=== PATIENT | male | born 1935 | race Caucasian/White ===

== ENCOUNTER → 2016-11-10 | Outpatient (CLI) | payer MEDICARE, OTHER ==
[~2016-11-10] MED LIST: AMIO20TA PO; AMITRIPTYLINE PO; ASPI81TA21 PO; BISAC5TA PO; CEFT2VL IV; COQ1100C PO; COZAR PO; DULC10SU9 PR; FOLI800T PO; GABAPOW41 PO; HYDROCODONE PO; LIDO1DIS2 TD; LOPR100T PO; LORTTAB2 PO; LORTTAB5 PO; LUTE20CA PO; MAGN500C PO; META800T82 PO; MOM30SS PO; MOME50SP; OSTEOBIFLEX PO; POTASSIUM PO; PREDPOW10 PO; PREV15CA10 PO; SALI0.9I2 IV; SENO8.6T9 PO; SYNT50TA PO; TOPR25TA PO; TYLE325T5 PO; UROXATROL PO; VOLTAREN PO; [UNRECOGNIZED DRUG - CODE] IV; [UNRECOGNIZED DRUG - CODE] MT
[2016-11-10 13:43] LABS: ALBUMIN 3.8 GM/DL (3.2-5.2); ALBUMIN/GLOBULIN RATIO 1.31 (1.00-1.93); BILIRUBIN,DIRECT 0.3 MG/DL (0.0-0.2); BILIRUBIN,TOTAL 0.9 MG/DL (0.2-1.0); TOTAL PROTEIN 6.7 GM/DL (6.4-8.2)
== END | disposition home or self-care (01) ==
LOC: M WUC 08:59
PROVIDERS: ATTEND Physician Assistant
DX: E29.1 Testicular hypofunction (principal); Z12.5 Encounter for screening for malignant neoplasm of prostate; Z79.899 Other long term (current) drug therapy
CPT/HCPCS: 36415; 80076; 84403; 85014; G0103

== ENCOUNTER → 2017-04-17 | Outpatient (CLI) | payer MEDICARE, BC, OTHER | LOC: M WUC 08:51 | PROVIDERS: ATTEND Physician Assistant | DX: E29.1 Testicular hypofunction (principal); Z12.5 Encounter for screening for malignant neoplasm of prostate; Z79.899 Other long term (current) drug therapy ==

== ENCOUNTER → 2017-07-25 | Outpatient (CLI) | payer MEDICARE, BC, OTHER | LOC: M WUC 13:42 | PROVIDERS: ATTEND Urology | DX: N40.1 Benign prostatic hyperplasia with lower urinary tract symptoms (principal); E29.1 Testicular hypofunction ==

== ENCOUNTER 2017-12-19 09:29 | Outpatient (CLI) | payer MEDICARE, BC, OTHER | END 2017-12-23 | LOC: M RAD 09:29 | DX: I70.213 Atherosclerosis of native arteries of extremities with intermittent claudication, bilateral legs (principal); I87.393 Chronic venous hypertension (idiopathic) with other complications of bilateral lower extremity; I70.234 Atherosclerosis of native arteries of right leg with ulceration of heel and midfoot | CPT/HCPCS: 93923 ==

== ENCOUNTER → 2017-12-21 | Outpatient (CLI) | payer MEDICARE, BC, OTHER ==
[2017-12-21 17:06] LABS: HEMATOCRIT 31.9 % (42.0-52.0)
[2017-12-21 17:26] LABS: PROSTATIC SPECIFIC AG MONITOR 0.12 NG/ML (< 4.0)
[2017-12-21 17:30] LABS: TESTOSTERONE 122 NG/DL (241-827)
== END ==
LOC: M WUC 12:50
DX: E29.1 Testicular hypofunction (principal)
CPT/HCPCS: 84403

== ENCOUNTER → 2018-02-11 | Outpatient (CLI) | payer MEDICARE, BC, OTHER | LOC: M RAD 10:41 | DX: I70.213 Atherosclerosis of native arteries of extremities with intermittent claudication, bilateral legs (principal); I87.393 Chronic venous hypertension (idiopathic) with other complications of bilateral lower extremity; F17.211 Nicotine dependence, cigarettes, in remission | CPT/HCPCS: 93971 ==

== ENCOUNTER → 2018-05-13 | Outpatient (CLI) | payer MEDICARE, BC, OTHER ==
[2018-05-13 13:13] LABS: PROSTATIC SPECIFIC AG MONITOR 0.11 NG/ML (< 4.0)
[2018-05-13 13:19] LABS: TESTOSTERONE 432 NG/DL (241-827)
== END ==
LOC: M WUC 10:28
DX: E29.1 Testicular hypofunction (principal)
CPT/HCPCS: 84403

== ENCOUNTER → 2018-11-15 | Outpatient (CLI) | payer MEDICARE, BC, OTHER ==
[2018-11-15 16:59] LABS: ALBUMIN 3.9 GM/DL (3.2-5.2); BILIRUBIN,DIRECT 0.2 MG/DL (0.0-0.2); BILIRUBIN,TOTAL 0.8 MG/DL (0.2-1.0); PROSTATIC SPECIFIC AG MONITOR 0.08 NG/ML (< 4.00); TOTAL PROTEIN 6.9 GM/DL (6.4-8.2)
== END ==
LOC: M WUC 12:31
PROVIDERS: ATTEND Physician Assistant
DX: E29.1 Testicular hypofunction (principal)

== ENCOUNTER → 2019-05-12 | Outpatient (CLI) | payer MEDICARE, BC, OTHER ==
[~2019-05-12] MED LIST changes: +AMIO200T10 PO; -AMIO20TA PO; +CEFT1INJ65 IV; -CEFT2VL IV; +METO-1 PO; -TOPR25TA PO
[2019-05-12 14:51] LABS: ALBUMIN 3.8 GM/DL (3.2-5.2); BILIRUBIN,DIRECT 0.3 MG/DL (0.0-0.2); PROSTATIC SPECIFIC AG MONITOR 0.13 NG/ML (< 4.00)
== END ==
LOC: M WUC 10:07
PROVIDERS: ATTEND Physician Assistant
DX: E29.1 Testicular hypofunction (principal)

== ENCOUNTER → 2019-11-15 | Outpatient (CLI) | payer MEDICARE, BC, OTHER ==
--- NOTE | 2019-11-15 18:05 | REP ---
Clinical: Abdominal pain. Technique: Upright view of the chest with supine and upright views of the abdomen and pelvis. Findings: Upright view of the chest demonstrates chronic appearing changes. No free air below diaphragm to suspect pneumoperitoneum. Supine and upright views of the abdomen and pelvis demonstrate nonspecific bowel gas pattern without obstruction or perforation. No organomegaly. No foreign body or significant abnormal calcification. Skeletal structures demonstrate chronic dextroconvex scoliosis and degenerative changes. Impression: Nonspecific bowel gas pattern. Electronically Signed by Feliciano Hudson MD 11/15/2019 05:56 P
== END ==
LOC: M WUC 16:49
PROVIDERS: ATTEND Physician Assistant
DX: R10.84 Generalized abdominal pain (principal)

== ENCOUNTER → 2019-12-16 | Outpatient (CLI) | payer MEDICARE, BC, OTHER ==
[2019-12-16 12:54] LABS: ALBUMIN 3.7 GM/DL (3.2-5.2); BILIRUBIN,DIRECT 0.4 MG/DL (0.0-0.2); BILIRUBIN,TOTAL 1.1 MG/DL (0.2-1.0); PROSTATIC SPECIFIC AG MONITOR 0.09 NG/ML (< 4.00); TOTAL PROTEIN 6.8 GM/DL (6.4-8.2)
== END ==
LOC: M WUC 09:37
DX: E29.1 Testicular hypofunction (principal)

== ENCOUNTER → 2020-04-02 | Outpatient (REF) | payer MEDICARE, BC, OTHER | LOC: M LAB REF 16:49 | PROVIDERS: ATTEND Nurse Practitioner Family | DX: L72.3 Sebaceous cyst (principal) ==

== ENCOUNTER → 2020-04-20 | Outpatient (CLI) | payer MEDICARE, BC, OTHER ==
[2020-04-20 14:03] LABS: CREATININE FOR GFR 1.32 MG/DL (0.70-1.30); GLOMERULAR FILTRATION RATE 55.3 (>35)
== END ==
LOC: M WUC 09:24
PROVIDERS: ATTEND Urology
DX: N28.1 Cyst of kidney, acquired (principal)

== ENCOUNTER 2020-08-27 10:59 | Inpatient (IN) | payer MEDICARE, BC, OTHER ==
[~2020-08-27] VITALS: Ht 182.9 cm; Wt 107.5 kg
[2020-08-27 11:54] LABS: BASO # 0.1 10^3/uL (0.0-0.2); BASO % 0.3 % (0.0-1.0); HEMATOCRIT 29.8 % (42.0-52.0); HEMOGLOBIN 9.9 g/dl (13.5-17.5); LYMPH # 1.2 10^3/uL (1.5-5.0); LYMPH % 5.6 % (24.0-44.0); MEAN CORPUSCULAR HEMOGLOBIN 35.1 pg (27.0-33.0); MEAN CORPUSCULAR HGB CONC 33.2 g/dl (32.0-36.5); MEAN CORPUSCULAR VOLUME 105.7 fl (80.0-96.0); MONO # 3.1 10^3/uL (0.0-0.8); MONO % 14.3 % (0.0-5.0); NEUTROPHILS # 17.1 10^3/uL (1.5-8.5); NEUTROPHILS % 78.5 % (36.0-66.0); PLATELET COUNT, AUTOMATED 176 10^3/uL (150-450); RED BLOOD COUNT 2.82 10^6/uL (4.30-6.10); WHITE BLOOD COUNT 21.8 10^3/uL (4.0-10.0)
[2020-08-27] MEDS ORDERED: AMIT10TA PO (12:08)
[2020-08-27] MEDS ORDERED: K-TA10TA PO (12:08)
[2020-08-27] MEDS ORDERED: MAGN1CAP PO (12:08)
[2020-08-27] MEDS ORDERED: CO Q200C10 PO (12:08)
[2020-08-27] MEDS ORDERED: EQL50TAB2 PO (12:08)
[2020-08-27] MEDS ORDERED: METO1TAB87 PO (12:08)
[2020-08-27] MEDS ORDERED: PRED25TA PO (12:08)
[2020-08-27] MEDS ORDERED: CVS2500C PO (12:08)
[2020-08-27] MEDS ORDERED: VITATAB74 PO (12:08)
[2020-08-27] MEDS ORDERED: HYDR-3713 PO (12:08)
[2020-08-27] MEDS ORDERED: VITA100T59 PO (12:08)
[2020-08-27] MEDS ORDERED: RAPA8CAP4 PO (12:08)
[2020-08-27] MEDS ORDERED: PRESCAP PO (12:08)
[2020-08-27] MEDS ORDERED: GABA600T4 PO (12:08)
[2020-08-27] MEDS ORDERED: TEST1GEL10 TOP (12:08)
[2020-08-27] MEDS ORDERED: FERR325T3 PO (12:08)
[2020-08-27 12:29] LABS: ALBUMIN 3.4 GM/DL (3.2-5.2); BILIRUBIN,DIRECT 0.4 MG/DL (0.0-0.2); BILIRUBIN,TOTAL 1.5 MG/DL (0.2-1.0); CALCIUM LEVEL 8.6 MG/DL (8.8-10.2); CREATININE FOR GFR 1.24 MG/DL (0.70-1.30); GLOMERULAR FILTRATION RATE 59.3 (>35); POTASSIUM SERUM 4.1 MEQ/L (3.5-5.1)
[2020-08-27] MEDS ORDERED: NS 1,000 ML IV ONE (12:30)
[2020-08-27] MEDS ORDERED: ACETAMINOPHEN 325 MG TAB PO ONE ×2 (12:30→22:45)
[2020-08-27] MEDS ORDERED: ISOVUE-370 76% 100ML VIAL As Ordered ONE (12:37)
--- NOTE | 2020-08-27 13:13 | REP ---
INDICATION: fever;weakness. COMPARISON: Frontal view obtained 11/15/2019 TECHNIQUE: The technique utilized in obtaining the radiograph has magnified the cardiac silhouette and attenuated the interstitial markings. FINDINGS: There are basilar fibrotic changes status quo. No acute patchy parenchymal opacities or pleural effusions seen to have developed. The lung elder are hypoexpanded. The cardiac silhouette is magnified by technique. There is no evidence of overt cardiomegaly. There is no change in the osseous structures. IMPRESSION: Chronic changes as described above. Correlate clinically to rule out the possibility of acute disease superimposed upon chronic change. <Electronically signed by Chintan Maravilla > 08/27/20 [id number]
--- NOTE | 2020-08-27 13:27 | REP ---
INDICATION: right sided abdominal pain COMPARISON: 03/03/2013. TECHNIQUE: CT Scan of the abdomen and pelvis was performed with intravenous administration of 100 cc of Isovue 370, without oral contrast. FINDINGS: Lung bases: There are fibrotic changes. Liver: There is [id number] intrahepatic biliary dilatation. No liver mass is seen. Gallbladder: Gallbladder is moderately distended and contains dependent calculi up to about 9 mm in diameter. There is gallbladder wall thickening with surrounding diffuse edema. The common hepatic and common bile ducts are dilated up to 17 mm. Several calculi are seen in the common bile duct measuring up to 1 cm in diameter. Spleen: Normal. Adrenals: Normal. Pancreas: Unremarkable. Kidneys: Probable small cyst in the upper pole of the right kidney. There is moderate left renal atrophy. There is no hydronephrosis bilaterally. Small and large bowel: Diverticulosis is noted of the sigmoid and left colon without evidence of acute diverticulitis. Free fluid: None. Abdominal aorta: No aneurysm or dissection. There are scattered atherosclerotic calcifications with tortuosity and mild ectasia. Adenopathy: None. Appendix: Not inflamed. Osseous structures: Significant degenerative changes. Pelvis: No mass. Small bilateral inguinal hernias containing noninflamed fat. IMPRESSION: Moderately distended gallbladder with diffuse gallbladder wall thickening and surrounding edema. Gallstones in the gallbladder. There is also evidence of choledocholithiasis. There is significant biliary dilatation diffusely. Findings are consistent with common bile duct obstruction and cholecystitis. <Electronically signed by Alfred Wallis > 08/27/20 [id number]
[2020-08-27] MEDS ORDERED: PIPERACILLIN/TAZOBACTAM SOD 4.5 GM in D5W MINI-BAG PLUS 50 ML IV ONE (14:00)
[2020-08-27] MEDS ORDERED: D5W/0.45% SODIUM CHLORIDE 1,000 ML IV SCH (14:11)
[2020-08-27] MEDS ORDERED: GLUCOSE 4GM CHEW TABLET PO PRN (14:15)
[2020-08-27] MEDS ORDERED: DEXTROSE 50% 50 ML SYRINGE IV PRN (14:15)
[2020-08-27] MEDS ORDERED: GLUCAGON INJ 1MG VIAL SC PRN (14:15)
[2020-08-27] MEDS ORDERED: HM P99TA PO (14:30)
[2020-08-27] MEDS ORDERED: LEVO50TA45 PO (14:30)
[2020-08-27] MEDS ORDERED: MELA1TAB9 PO (14:30)
[2020-08-27] MEDS ORDERED: PANT500T PO (14:30)
[2020-08-27] MEDS ORDERED: CYAN100050 PO (14:30)
[2020-08-27] MEDS ORDERED: VITA100091 PO (14:30)
[2020-08-27] MEDS ORDERED: ACET650T61 PO (14:30)
[2020-08-27] MEDS ORDERED: ACID1TAB PO (14:30)
[2020-08-27] MEDS ORDERED: PREDOPD OS (14:30)
[2020-08-27] MEDS ORDERED: CO Q100C2 PO (14:30)
[2020-08-27] MEDS ORDERED: D31000TA2 PO (14:30)
[2020-08-27] MEDS ORDERED: LANS30CA PO (14:30)
[2020-08-27] MEDS ORDERED: FOLI800C PO (14:30)
[2020-08-27] MEDS ORDERED: RA T500C2 PO (14:30)
[2020-08-27] MEDS ORDERED: OCUVTAB4 PO (14:30)
[2020-08-27] MEDS ORDERED: CICL0.7733 TOP (14:30)
[2020-08-27 17:30] VITALS: BP 131/81
--- NOTE | 2020-08-27 17:31 | HPEPDOC ---
[facility] Medical History & Physical Date of Admission Aug 27, 2020 Date of Service: Aug 27, 2020 History and Physical CHIEF COMPLAINT: Right upper quadrant abdominal pain for 2 days HISTORY OF PRESENT ILLNESS: 85-year-old male presented to the emergency room with acute onset of right upper quadrant abdominal pain noted yesterday without nausea, vomiting, fever or chills. Patient describes the pain as very sharp, lasted for about 2 hours after eating. His oatmeal in the morning very excruciating without improvement after taking some antacids when he got up this morning, patient felt lightheaded and felt that "I was septic again." . He was in [place] yesterday and ate a cup of soup with ham, cabbage, and potato and a cream pie and infiltrate well rested today. "I was miserable into the evening." Patient has had no nausea or vomiting, abdominal pain radiated across the abdomen and epigastric area and the left upper quadrant, with one episode of diarrhea last night, none this morning. Non-mucousy, nonbloody, non-projectile, water without abdominal distention retching or bloating. He denies any chest pain, pressure, tightness, lightheadedness, dizziness, palpitations, near syncope, bilateral upper and lower extremity weakness, paresthesias, dysuria, urgency, frequency, flank pain, foul-smelling urine, bright red blood per rectum, melena, black tarry stools, hematemesis, hemoptysis, shortness of breath, PND or orthopnea, dyspnea and exertion, or Chills.This morning. His gave him 2 doses of Cefdinir, one last night and one this morning with no improvement. In the emergency room was found to have a fever 100.9. White count 21.8. CT abdomen and pelvis showed moderately distended gallbladder with diffuse gallbladder wall thickening and edema consistent with diffuse biliary dilatation consistent with common bile duct obstruction and cholecystitis, choledocholithiasis. Patient was given intravenous Zosyn and kept nothing by mouth and IV fluids and hypoglycemic protocol proposal lead writer, Dr. Reilly, was consulted for ERCP. Covid 19 negative. Patient denies taking any anticoagulants and has only taken his morning dose of aspirin 81 mg daily. PAST MEDICAL HISTORY: MRSA positive, Hypertension, hypercholesterolemia, asthma, pneumonia, obstructive sleep apnea on CPAP, gastroesophageal reflux disease, Coronary artery disease, prior catheterization and attempted ablation-patient was not sure why this was done, peripheral neuropathy, benign prostatic hypertrophy, urinary tract infection, anemia of chronic disease, hypothyroidism, anxiety PAST SURGICAL HISTORY: Spinal cord stimulator and removal, tonsillectomy, adenoidectomy, cataract repair, retinal detachment on the left. Back surgery 2 HOME MEDICATIONS: SEE BELOW. ALLERGIES: SEE BELOW SOCIAL HISTORY: , lives with . Denies any prior history of alcohol, tobacco use, recreational drug use. 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 No jaundice or icterus. No respiratory distress. No cyanosis or pallor HEENT: Normocephalic, atraumatic CARDIOVASCULAR: S1, S2, sinus rhythm, no murmurs, rubs or gallops. Nondisplaced point of maximal impulse no carotid bruits LUNGS: Clear to auscultation. Wheezing, rales or rhonchi. Air entry is equal bilaterally. No kyphoscoliosis ABDOMEN: Obese, hypoactive bowel sounds. Tender in the right upper quadrant and epigastric region without rebound, guarding no fluid wave. EXTREMITIES: No cyanosis, clubbing, or any pitting edema LABORATORY DATA: See below. IMAGING: CT ABDOMEN AND PELVIS 08/27/2020: Moderately distended gallbladder with diffuse gallbladder wall thickening and surrounding edema. Gallstones in the gallbladder. There is also evidence of choledocholithiasis. There is significant biliary dilatation diffusely. Findings are consistent with common bile duct obstruction and cholecystitis. <Electronically signed by Alfred Wallis > 08/27/20 1324 CHEST X-RAY 08/27/2020:: Chronic changes as described above. Correlate clinically to rule out the possibility of acute disease superimposed upon chronic change. <Electronically signed by Chintan Maravilla > 08/27/20 1304 MICROBIOLOGY: Please see below. ASSESSMENT: 85-year-old male presented to the emergency room with acute onset of right upper quadrant abdominal pain noted yesterday without nausea, vomiting, fever or chills. Patient describes the pain as very sharp, lasted for about 2 hours after eating. His oatmeal in the morning very excruciating without improvement after taking some antacids when he got up this morning, patient felt lightheaded and felt that "I was septic again." . He was in [place] yesterday and ate a cup of soup with ham, cabbage, and potato and a cream pie and infiltrate well rested today. "I was miserable into the evening." Patient has had no nausea or vomiting, abdominal pain radiated across the abdomen and epigastric area and the left upper quadrant, with one episode of diarrhea last night, none this morning. Non-mucousy, nonbloody, non-projectile, water without abdominal distention retching or bloating. He denies any chest pain, pressure, tightness, lightheadedness, dizziness, palpitations, near syncope, bilateral upper and lower extremity weakness, paresthesias, dysuria, urgency, frequency, flank pain, foul-smelling urine, bright red blood per rectum, melena, black tarry stools, hematemesis, hemoptysis, shortness of breath, PND or orthopnea, dyspnea and exertion, or Chills.This morning. His gave him 2 doses of Cefdinir, one last night and one this morning with no improvement. In the emergency room was found to have a fever 100.9. White count 21.8. CT abdomen and pelvis showed moderately distended gallbladder with diffuse gallbladder wall thickening and edema consistent with diffuse biliary dilatation consistent with common bile duct obstruction and cholecystitis, choledocholithiasis. Patient was given intravenous Zosyn and kept nothing by mouth and IV fluids and hypoglycemic protocol proposal lead writer, Dr. Reilly, was consulted for ERCP. patient will be admitted as an inpatient for 2 minutes for the following acute issues: Acute cholangitis./Choledocholithiasis./Common bile duct obstruction/Acute cholecystitis. -Nothing by mouth, IV fluids, hypoglycemic protocol every 6 hourly fingersticks while nothing by mouth ERCP by GI. General surgical consult for laparoscopic c holecystectomy When necessary pain medications intravenously. Serial Liver function tests. Covid negative. Check PT/INR Coronary artery disease, prior catheterization and attempted ablation-patient w as not sure why this was done, -Denies any acute cardiac ischemic symptoms, chest pain, pressure, tightness, lightheadedness, dizziness or shortness of breath. EKG preop obstructive sleep apnea on CPAP, -JING protocol. Resume home on CPAP settings h/o MRSA positive -Recheck MRSA screen. Contact precautions. If positive Hypertension, controlled -Nothing by mouth, IV fluids hypercholesterolemia, -Check lipid panel in the morning asthma, -When necessary nebulizer gastroesophageal reflux disease, -IV PPI peripheral neuropathy, chronic benign prostatic hypertrophy, -Resume home meds once we started him oral diet anemia of chronic disease, -Check iron studies, reticulocyte count, peripheral blood smear, stool for blood. hypothyroidism, -Check TSH. Resume Synthroid once patient resumes an oral diet anxiety -Chronic CODE STATUS full code. Healthcare proxy Diet nothing by mouth DVT prophylaxis compression stockings Vital Signs Vital Signs Date Time Temp Pulse Resp B/P (MAP) Pulse Ox O2 Delivery O2 Flow Rate FiO2 08/27/20 16:57 61 18 97 Room Air 08/27/20 12:09 08/27/20 11:00 100.9 Laboratory Data Labs 24H Laboratory Tests 2 08/27/20 11:42: Immature Granulocyte % (Auto) 1.3, Neutrophils (%) (Auto) 78.5H, Lymphocytes (%) (Auto) 5.6L, Monocytes (%) (Auto) 14.3H, Eosinophils (%) (Auto) 0.0, Basophils (%) (Auto) 0.3, Neutrophils # (Auto) 17.1H, Lymphocytes # (Auto) 1.2L, Monocytes # (Auto) 3.1H, Eosinophils # (Auto) 0.0, Basophils # (Auto) 0.1, Nucleated Red Blood Cells % (auto) 0.2H, Anion Gap 5L, Glomerular Filtration Rate 59.3, Lactic Acid Level 1.1, Calcium Level 8.6L, Total Bilirubin 1.5H, Direct Bilirubin 0.4H, Aspartate Amino Transf (AST/SGOT) 35, Alanine Aminotransferase (ALT/SGPT) 54, Alkaline Phosphatase 58, Total Protein 7.0, Albumin 3.4, Albumin/Globulin Ratio 0.9, Lipase 101 08/27/20 14:05: Coronavirus (COVID-19)(PCR) NEGATIVE CBC/BMP Laboratory Tests 08/27/20 11:42 Microbiology Microbiology 08/27/20 Blood Culture, Received Pending 08/27/20 Blood Culture, Received Pending Home Medications Scheduled Amitriptyline HCl (Amitriptyline HCl) 10 Mg Tablet, 10 MG PO QHS Ascorbic Acid (Vitamin C) 1,000 Mg Tablet, 1,000 MG PO DAILY Cholecalciferol (Vitamin D3) (Vitamin D3) 1,000 Unit Tablet, 5,000 UNITS PO DAILY Ciclopirox (Ciclopirox) 30 Gm Gel..gram., 1 DOSE TOP BID APPLY TO FEET Cyanocobalamin (Vitamin B-12) (Vitamin B-12) 1,000 Mcg Tablet, 1,000 MCG PO QHS Folic Acid (Folic Acid) 0.8 Mg Capsule, 800 MCG PO DAILY Gabapentin (Gabapentin) 600 Mg Tablet, 1,200 MG PO BID Lactobacillus Acidophilus (Acidophilus) 1 Each Tablet, 1 TAB PO DAILY Lansoprazole (Lansoprazole) 30 Mg Capsule.dr, 30 MG PO DAILY Levothyroxine Sodium (Levoxyl) 50 Mcg Tablet, 50 MCG PO DAILY Magnesium Oxide (Magnesium) 500 Mg Capsule, 500 MG PO QHS Metoprolol Tartrate (Metoprolol Tartrate) 25 Mg Tablet, 50 MG PO QPM Pantothenic Acid (Vit B5) (Pantothenic Acid) 500 Mg Tablet, 500 MG PO BID Potassium Gluconate (Potassium) 99 Mg Tablet, 595 MG PO QHS Prednisolone Acetate (Prednisolone Acetate 1% Opth Susp) 5 Ml Drops.susp, 1 DROP OS QHS Prednisone (Prednisone) 2.5 Mg Tablet, 5 MG PO DAILY Silodosin (Rapaflo) 8 Mg Capsule, 8 MG PO QHS Testosterone (Testosterone) 60 Gm Gel.government clerk, 4 PUMP TOP DAILY APPLY TO BUTTOCKS Turmeric Root Extract (Turmeric) 500 Mg Capsule, 1,000 MG PO BID Ubidecarenone (Co Q-10) 100 Mg Capsule, 100 MG PO DAILY Vit A/Vit C/Vit E/Zinc/Copper (Preservision Areds Tablet) 1 Each Tablet, 1 TAB PO DAILY Vitamin B Complex (Vitamin B Complex) 1 Each Tablet, 1 TAB PO BID Scheduled PRN Acetaminophen (Tylenol Arthritis) 650 Mg Tablet.er, 1,300 MG PO BID PRN for PAIN Hydrocodone/Acetaminophen (Hydrocodone-Acetamin 5-325 mg) 1 Each Tablet, 1 TAB PO TID PRN for PAIN Melatonin (Melatonin) 5 Mg Tablet, 5 MG PO QHS PRN for SLEEP Allergies Coded Allergies: No Known Allergies (Unverified , 11/20/20) A-FIB/CHADSVASC A-FIB History Current/History of A-Fib/PAF?: No Current PO Anticoag Therapy: No Age/Risk Factor Scoring CHADSVASC: CHADSVASC Response (Comments) Value Age Risk Factor Age >/= 75 years old 2 Gender Risk Factor Male 0 Hx of CHF No 0 Hx of HTN Yes 1 Hx of Stroke/TIA/or VTE No 0 Hx of Diabetes No 0 Hx of Vascular Disease No 0 Total 3 Treatment Treatment ordered: NONE LUCIO OAKLEY MD Aug 27, 2020 17:31
[2020-08-27 17:47] LABS: INR 1.12; PROTHROMBIN TIME 14.7 SECONDS (12.5-14.3)
[2020-08-27 17:48] LABS: PARTIAL THROMBOPLASTIN TIME 37.3 SECONDS (24.2-38.5)
--- NOTE | 2020-08-27 18:15 | CR.PDOC ---
General Date of Consultation: Aug 27, 2020 Referring Provider: LUCIO OAKLEY MD Attending Physician: MARTIN PERRY MD Consultation REASON FOR CONSULTATION/CHIEF COMPLAINT: . HISTORY OF PRESENT ILLNESS: . ALLERGIES: Please see below. HOME MEDICATIONS: Please see below. PAST MEDICAL HISTORY: 1. . 2. . PAST SURGICAL HISTORY: 1. 2. FAMILY HISTORY: Father: Mother: Siblings: Children: Hereditary Diseases: Unexpected deaths due to medical reasons: SOCIAL HISTORY: Marital status and/or living arrangements: Children: Employment: Tobacco use: ETOH: Illicit drug use: IV drug use: Other relevant social factors: REVIEW OF SYSTEMS: CONSTITUTIONAL: . HEENT: . CARDIOVASCULAR: . RESPIRATORY: . GENITOURINARY: . MUSCULOSKELETAL: . GASTROINTESTINAL: . SKIN: . NEUROLOGICAL: . PSYCHIATRIC: . ENDOCRINE: . HEMATOLOGIC/LYMPHATIC: . ALLERGIC/IMMUNOLOGIC: . PHYSICAL EXAMINATION: VITAL SIGNS: Please see below. GENERAL APPEARANCE: . HEENT: . RESPIRATORY: . CARDIOVASCULAR: . ABDOMEN: . EXTREMITIES: . NEUROLOGICAL: . PSYCHIATRIC: . LABORATORY DATA: Please see below. ASSESSMENT/PLAN: 1. Abdominal pain, upper abdomen and predominantly right upper quadrant with nausea and signes of sepsis and Imaging showing distended gall bladder and Dilated CBD, cholecystitis and CBD stone -- DDx-- CHolecystitis with biliary obstruction vs suspected ascending cholangitis. Recommendations: -- NPO -- IV broad spectrum antibiotics. -- If Vital Signs/I&O Vital Signs Date Time Temp Pulse Resp B/P (MAP) Pulse Ox O2 Delivery O2 Flow Rate FiO2 08/27/20 16:57 61 18 97 Room Air 08/27/20 12:09 08/27/20 11:00 100.9 Laboratory Data Labs 24H Laboratory Tests 2 08/27/20 11:42: Immature Granulocyte % (Auto) 1.3, Neutrophils (%) (Auto) 78.5H, Lymphocytes (%) (Auto) 5.6L, Monocytes (%) (Auto) 14.3H, Eosinophils (%) (Auto) 0.0, Basophils (%) (Auto) 0.3, Neutrophils # (Auto) 17.1H, Lymphocytes # (Auto) 1.2L, Monocytes # (Auto) 3.1H, Eosinophils # (Auto) 0.0, Basophils # (Auto) 0.1, Reticulocyte # (auto) 45.7, Nucleated Red Blood Cells % (auto) 0.2H, Percent Reticulocyte Count 1.6H, Reticulocyte Hemoglobin Equivalent 33.1, Prothrombin Time 14.7H, Prothromb Time International Ratio 1.12, Activated Partial Thromboplast Time 37.3, Anion Gap 5L, Glomerular Filtration Rate 59.3, Lactic Acid Level 1.1, Calcium Level 8.6L, Iron Level 23L, Total Iron Binding Capacity 230L, Transferrin % Saturation 10.0L, Ferritin 487H, Total Bilirubin 1.5H, Direct Bilirubin 0.4H, Aspartate Amino Transf (AST/SGOT) 35, Alanine Aminotransferase (ALT/SGPT) 54, Alkaline Ph osphatase 58, Total Protein 7.0, Albumin 3.4, Albumin/Globulin Ratio 0.9, Lipase 101 08/27/20 14:05: Coronavirus (COVID-19)(PCR) NEGATIVE CBC/BMP Laboratory Tests 08/27/20 11:42 Microbiology Microbiology 08/27/20 Blood Culture, Received Pending 08/27/20 Blood Culture, Received Pending Allergies Coded Allergies: No Known Allergies (Unverified , 08/27/20) Home Medications Scheduled Amitriptyline HCl (Amitriptyline HCl) 10 Mg Tablet, 10 MG PO QHS, (Reported) Ascorbic Acid (Vitamin C) 1,000 Mg Tablet, 1,000 MG PO DAILY, (Reported) Cholecalciferol (Vitamin D3) (Vitamin D3) 1,000 Unit Tablet, 5,000 UNITS PO DAILY, (Reported) Ciclopirox (Ciclopirox) 30 Gm Gel..gram., 1 DOSE TOP BID, (Reported) APPLY TO FEET Cyanocobalamin (Vitamin B-12) (Vitamin B-12) 1,000 Mcg Tablet, 1,000 MCG PO QHS, (Reported) Folic Acid (Folic Acid) 0.8 Mg Capsule, 800 MCG PO DAILY, (Reported) Gabapentin (Gabapentin) 600 Mg Tablet, 1,200 MG PO BID, (Reported) Lactobacillus Acidophilus (Acidophilus) 1 Each Tablet, 1 TAB PO DAILY, (Reported) Lansoprazole (Lansoprazole) 30 Mg Capsule.dr, 30 MG PO DAILY, (Reported) Levothyroxine Sodium (Levoxyl) 50 Mcg Tablet, 50 MCG PO DAILY, (Reported) Magnesium Oxide (Magnesium) 500 Mg Capsule, 500 MG PO QHS, (Reported) Metoprolol Tartrate (Metoprolol Tartrate) 25 Mg Tablet, 50 MG PO QPM, (Reported) Pantothenic Acid (Vit B5) (Pantothenic Acid) 500 Mg Tablet, 500 MG PO BID, (Reported) Potassium Gluconate (Potassium) 99 Mg Tablet, 595 MG PO QHS, (Reported) Prednisolone Acetate (Prednisolone Acetate 1% Opth Susp) 5 Ml Drops.susp, 1 DROP OS QHS, (Reported) Prednisone (Prednisone) 2.5 Mg Tablet, 5 MG PO DAILY, (Reported) Silodosin (Rapaflo) 8 Mg Capsule, 8 MG PO QHS, (Reported) Testosterone (Testosterone) 60 Gm Gel..home health lpn, 4 PUMP TOP DAILY, (Reported) APPLY TO BUTTOCKS Turmeric Root Extract (Turmeric) 500 Mg Capsule, 1,000 MG PO BID, (Reported) Ubidecarenone (Co Q-10) 100 Mg Capsule, 100 MG PO DAILY, (Reported) Vit A/Vit C/Vit E/Zinc/Copper (Preservision Areds Tablet) 1 Each Tablet, 1 TAB PO DAILY, (Reported) Vitamin B Complex (Vitamin B Complex) 1 Each Tablet, 1 TAB PO BID, (Reported) Scheduled PRN Acetaminophen (Tylenol Arthritis) 650 Mg Tablet.er, 1,300 MG PO BID PRN for PAIN, (Reported) Hydrocodone/Acetaminophen (Hydrocodone-Acetamin 5-325 mg) 1 Each Tablet, 1 TAB PO TID PRN for PAIN, (Reported) Melatonin (Melatonin) 5 Mg Tablet, 5 MG PO QHS PRN for SLEEP, (Reported) MARTIN PERRY MD Aug 27, 2020 18:14
[2020-08-27] MEDS ORDERED: ZOSY1SOL5 IV (19:12)
[2020-08-27] MEDS ORDERED: [UNRECOGNIZED DRUG - CODE] IV (19:12)
--- NOTE | 2020-08-27 19:28 | DS.PDOC ---
Discharge Summary General Date of Admission Aug 27, 2020 at 14:11 Date of Discharge 08/27/20 TRANSFER:[facility] ACCEPTING MD: DR HORTA REASON FOR TRANSFER: ERCP NOT AVAILABLE AT [facility] Discharge Summary DISCHARGE DIAGNOSES: Acute cholangitis Choledocholithiasis Acute cholecystitis 17mm CBD Dilatation Sepsis H/O CAD HTN Dyslipidemia JING on CPAP Chronic Back pain Hypothyroidism DISCHARGE MEDICATIONS: SEE BELOW DISCHARGE INSTRUCTIONS: GI CONSULT FOR ERCP GENERAL SURGERY CONSULT FOR [facility] CHOLECYSTECTOMY CONSULTANTS: GI DR. PERRY HISTORY OF PRESENT ILLNESS: . 85-year-old male presented to the emergency room with acute onset of right upper quadrant abdominal pain noted yesterday without nausea, vomiting, fever or chills. Patient describes the pain as very sharp, lasted for about 2 hours after eating. His oatmeal in the morning very excruciating without improvement after taking some antacids when he got up this morning, patient felt lightheaded and felt that "I was septic again." . He was in [place] yesterday and ate a cup of soup with ham, cabbage, and potato and a cream pie and infiltrate well rested today. "I was miserable into the evening." Patient has had no nausea or vomiting, abdominal pain radiated across the abdomen and epigastric area and the left upper quadrant, with one episode of diarrhea last night, none this morning. Non-mucousy, nonbloody, non-projectile, water without abdominal distention retching or bloating. He denies any chest pain, pressure, tightness, lightheadedness, dizziness, palpitations, near syncope, bilateral upper and lower extremity weakness, paresthesias, dysuria, urgency, frequency, flank pain, foul-smelling urine, bright red blood per rectum, melena, black tarry stools, hematemesis, hemoptysis, shortness of breath, PND or orthopnea, dyspnea and exertion, or Chills.This morning. His gave him 2 doses of Cefdinir, one last night and one this morning with no improvement. In the emergency room was found to have a fever 100.9. White count 21.8. CT abdomen and pelvis showed moderately distended gallbladder with diffuse gallb ladder wall thickening and edema consistent with diffuse biliary dilatation consistent with common bile duct obstruction and cholecystitis, choledocholithiasis. Patient was given intravenous Zosyn and kept nothing by mouth and IV fluids with D51/2 NS at 100ml/hr and hypoglycemic protocol sales representative [employer], Dr. Perry, was consulted for ERCP. Covid 19 negative. Patient denies taking any anticoagulants and has only taken his morning dose of aspirin 81 mg daily. HOSPITAL COURSE: GI Dr. Perry said that he does not have the OPP staff to assist in ERCP, and the OR staff are not trained in ERCP. GI recommended transfer to [place] for ERCP. Hospitalist was informed 30 minutes after hospita l admission when the patient was assigned a bed. ER was informed that the patient should not have been admitted to Hospitalist service in the first place. Pt was informed of the current issue, and agreed with the transfer. DISCHARGE PHYSICAL EXAMINATION: VITAL SIGNS: GENERAL: Awake, alert, oriented to person, place and time, answering questions appropriately. No jaundice or icterus. No respiratory distress. No cyanosis or pallor HEENT: Normocephalic, atraumatic CARDIOVASCULAR: S1, S2, sinus rhythm, no murmurs, rubs or gallops. Nondisplaced point of maximal impulse no carotid bruits LUNGS: Clear to auscultation. Wheezing, rales or rhonchi. Air entry is equal bilaterally. No kyphoscoliosis ABDOMEN: Obese, hypoactive bowel sounds. Tender in the right upper quadrant and epigastric region without rebound, guarding no fluid wave. EXTREMITIES: No cyanosis, clubbing, or any pitting edema LABORATORY DATA: See below. IMAGING: CT ABDOMEN AND PELVIS 08/27/2020: Moderately distended gallbladder with diffuse gallbladder wall thickening and surrounding edema. Gallstones in the gallbladder. There is also evidence of choledocholithiasis. There is significant biliary dilatation diffusely. Findings are consistent with common bile duct obstruction and cholecystitis. <Electronically signed by Alfred Wallis > 08/27/20 1324 CHEST X-RAY 08/27/2020:: Chronic changes as described above. Correlate clinically to rule out the possibility of acute disease superimposed upon chronic change. <Electronically signed by Chintan Maravilla > 08/27/20 1308 MICROBIOLOGY: Please see below. TIME SPENT ON DISCHARGE: 90 MINUTES (6:00pm to 7:30 pm ) including family discussion with and patient, case discussion with 3 transfer centers, physicians, GI. Vital Signs/I&Os Vital Signs Date Time Temp Pulse Resp B/P (MAP) Pulse Ox O2 Delivery O2 Flow Rate FiO2 08/27/20 17:30 98.4 74 18 131/81 (98) 94 Room Air Laboratory Data Labs 24H Laboratory Tests 2 08/27/20 11:42: Immature Granulocyte % (Auto) 1.3, Neutrophils (%) (Auto) 78.5H, Lymphocytes (%) (Auto) 5.6L, Monocytes (%) (Auto) 14.3H, Eosinophils (%) (Auto) 0.0, Basophils (%) (Auto) 0.3, Neutrophils # (Auto) 17.1H, Lymphocytes # (Auto) 1.2L, Monocytes # (Auto) 3.1H, Eosinophils # (Auto) 0.0, Basophils # (Auto) 0.1, Reticulocyte # (auto) 45.7, Nucleated Red Blood Cells % (auto) 0.2H, Percent Reticulocyte Count 1.6H, Reticulocyte Hemoglobin Equivalent 33.1, Prothrombin Time 14.7H, Prothromb Time International Ratio 1.12, Activated Partial Thromboplast Time 37.3, Anion Gap 5L, Glomerular Filtration Rate 59.3, Lactic Acid Level 1.1, Calcium Level 8.6L, Iron Level 23L, Total Iron Binding Capacity 230L, Transferrin % Saturation 10.0L, Ferritin 487H, Total Bilirubin 1.5H, Direct Bilirubin 0.4H, Aspartate Amino Transf (AST/SGOT) 35, Alanine Aminotransferase (ALT/SGPT) 54, Alkaline Phosphatase 58, Total Protein 7.0, Albumin 3.4, Albumin/Globulin Ratio 0.9, Lipase 101 08/27/20 14:05: Coronavirus (COVID-19)(PCR) NEGATIVE 08/27/20 18:16: Bedside Glucose (Misc Panel) 81L CBC/BMP Laboratory Tests 08/27/20 11:42 FSBS Laboratory Tests Test 08/27/20 18:16 Range/Units Bedside Glucose (Misc Panel) 81 83-110 MG/DL Microbiology Microbiology 08/27/20 Blood Culture, Received Pending 08/27/20 Blood Culture, Received Pending Discharge Medications Scheduled [id number]-[id number]-Scjpitna,Iso (Zosyn 3.375 gm/50 ml Galaxy) 3.375 Gm/50 Ml Froz.piggy, 3.375 CHRIS IV Q6H Potassium Chloride/D5-0.45NACL (D5%-1/2Ns-KCl 10 Meq/l IV Chris) 10 Meq/1000 Ml Iv.soln, 100 ML IV DAILY Allergies Coded Allergies: No Known Allergies (Unverified , 08/27/20) LUCIO OAKLEY MD Aug 27, 2020 19:28
[2020-08-27 20:00] VITALS: BP 137/78
[2020-08-27] MEDS ORDERED: ACETAMINOPHEN TAB 650MG DOSE (2X325MG) PO PRN (20:15)
[2020-08-27] MEDS ORDERED: PIPERACILLIN/TAZOBACTAM SOD 3.375 GM in D5W MINI-BAG PLUS 50 ML IV SCH (21:00)
--- NOTE | 2020-08-27 21:42 | ECGEPIP ---
[facility] - ED Test Date: 2020-08-27 Pat Name: URBAN MCKEON Department: Room: [place] [address] Gender: Male Data Compiler: AGNIESZKA : [id number] Requested By: BULMARO ARELLANO Order Number: [id number] Reading MD: Madisyn Elizondo Measurements Intervals [place] Rate: 58 P: 67 SD: 216 QRS: -16 QRSD: 122 T: -6 QT: 447 QTc: 441 Interpretive Statements SINUS BRADYCARDIA WITH FIRST DEGREE AV BLOCK RIGHT BUNDLE BRANCH BLOCK Electronically Signed on 08-27-2020 21:42:22 EST by Madisyn Elizondo
[2020-08-27 21:43] VITALS: BP 139/81
[2020-08-28] VITALS: BP 154/85
== END 2020-08-28 00:54 | disposition short-term general hospital (02) | DRG 872 ==
LOC: M ED 10:59 → M ED INP 14:11 → M MSPAV 18:17
PROVIDERS: ADMIT General Practice; ATTEND General Practice
DX: A41.9 Sepsis, unspecified organism (principal); K80.43 Calculus of bile duct with acute cholecystitis with obstruction; G47.33 Obstructive sleep apnea (adult) (pediatric); I25.10 Atherosclerotic heart disease of native coronary artery without angina pectoris; I10 Essential (primary) hypertension; E78.00 Pure hypercholesterolemia, unspecified; J45.909 Unspecified asthma, uncomplicated; K21.9 Gastro-esophageal reflux disease without esophagitis; G62.9 Polyneuropathy, unspecified; N40.0 Benign prostatic hyperplasia without lower urinary tract symptoms; D63.8 Anemia in other chronic diseases classified elsewhere; E03.9 Hypothyroidism, unspecified; F41.9 Anxiety disorder, unspecified; Z98.49 Cataract extraction status, unspecified eye; Z20.828 Contact with and (suspected) exposure to other viral communicable diseases; Z86.14 Personal history of Methicillin resistant Staphylococcus aureus infection

== ENCOUNTER → 2021-01-24 | Outpatient (CLI) | payer MEDICARE, BC, OTHER ==
[~2021-01-24] MED LIST changes: +ACET650T61 PO; +ACID1TAB PO; +AMIT10TA7 PO; +CICL0.7733 TOP; +CO Q100C2 PO; +CO Q200C10 PO; +CVS2500C PO; +CYAN100050 PO; +D31000TA2 PO; +EQL50TAB2 PO; +FERR325T3 PO; +FOLI800C PO; +GABA600T4 PO; +HM P99TA PO; +HYDR-3713 PO; +K-TA10TA PO; +KCL.075I3 IV; +LANS30CA PO; +LEVO50TA45 PO; +MAGN1CAP PO; +MELA1TAB9 PO; +METO1TAB87 PO; +OCUVTAB4 PO; +PANT500T PO; +PRED25TA PO; +PREDOPD OS; +PRESCAP PO; +RA T500C2 PO; +RAPA8CAP4 PO; +TEST1GEL10 TOP; +VITA100091 PO; +VITA100T59 PO; +VITATAB74 PO; +ZOSY1SOL5 IV
[2021-01-24 16:45] LABS: BASO # 0.1 10^3/uL (0.0-0.2); BASO % 0.6 % (0.0-1.0); EOS % 0.3 % (0.0-3.0); HEMATOCRIT 31.8 % (42.0-52.0); HEMOGLOBIN 10.4 g/dl (13.5-17.5); LYMPH # 1.5 10^3/uL (1.5-5.0); MEAN CORPUSCULAR HEMOGLOBIN 36.2 pg (27.0-33.0); MEAN CORPUSCULAR HGB CONC 32.7 g/dl (32.0-36.5); MEAN CORPUSCULAR VOLUME 110.8 fl (80.0-96.0); MONO # 1.1 10^3/uL (0.0-0.8); MONO % 11.4 % (2.0-8.0); NEUTROPHILS % 71.1 % (36.0-66.0); PLATELET COUNT, AUTOMATED 110 10^3/uL (150-450); RED BLOOD COUNT 2.87 10^6/uL (4.30-6.10); WHITE BLOOD COUNT 9.8 10^3/uL (4.0-10.0)
== END ==
LOC: M WUC 13:42
PROVIDERS: ATTEND Urology
DX: E29.1 Testicular hypofunction (principal)

== ENCOUNTER → 2021-06-22 | Outpatient (CLI) | payer MEDICARE, BC, OTHER ==
[~2021-06-22] MED LIST changes: -HM P99TA PO; +POTA99TA14 PO
--- NOTE | 2021-06-22 10:46 | REP ---
INDICATION: RIGHT RIB CAGE PAIN, NO TRAUMA. COMPARISON: Chest 08/27/2020. TECHNIQUE: Seven views right ribs. FINDINGS: No fracture or bone lesion is seen. The right lung demonstrates no acute infiltrate. A small smoothly marginated calcific density adjacent to the superior glenoid may represent an old fracture. There are degenerative changes at the acromioclavicular joint and glenohumeral joint. Incidental note is made of a biliary stent with adjacent surgical clips. IMPRESSION: No evidence of right rib fracture or bone lesion. <Electronically signed by Alfred Wallis > 06/22/21 1044
== END ==
LOC: M WUC 10:24
PROVIDERS: ATTEND Physician Assistant
DX: R52 Pain, unspecified (principal)

== ENCOUNTER → 2022-01-09 | Outpatient (CLI) | payer MEDICARE, BC, OTHER ==
[~2022-01-09] MED LIST changes: -D31000TA2 PO; +VITA100093 PO
[2022-01-09 16:20] LABS: HEMATOCRIT 28.2 % (42.0-52.0); HEMOGLOBIN 9.2 g/dl (13.5-17.5); MEAN CORPUSCULAR HEMOGLOBIN 37.7 pg (27.0-33.0); MEAN CORPUSCULAR HGB CONC 32.6 g/dl (32.0-36.5); PLATELET COUNT, AUTOMATED 108 10^3/uL (150-450); RED BLOOD COUNT 2.44 10^6/uL (4.30-6.10); WHITE BLOOD COUNT 7.9 10^3/uL (4.0-10.0)
[2022-01-09 16:23] LABS: PROSTATIC SPECIFIC AG MONITOR 0.08 NG/ML (< 4.00)
[2022-01-09 17:13] LABS: MEAN CORPUSCULAR VOLUME 115.6 fl (80.0-96.0)
== END ==
LOC: M WUC 11:17
PROVIDERS: ATTEND Urology
DX: E29.1 Testicular hypofunction (principal)

== ENCOUNTER → 2022-02-07 | Outpatient (CLI) | payer MEDICARE, OTHER, BC ==
[2022-02-07 13:42] LABS: HEMATOCRIT 29.6 % (42.0-52.0); HEMOGLOBIN 9.7 g/dl (13.5-17.5); MEAN CORPUSCULAR HEMOGLOBIN 37.6 pg (27.0-33.0); MEAN CORPUSCULAR HGB CONC 32.8 g/dl (32.0-36.5); PLATELET COUNT, AUTOMATED 133 10^3/uL (150-450); RED BLOOD COUNT 2.58 10^6/uL (4.30-6.10); WHITE BLOOD COUNT 8.8 10^3/uL (4.0-10.0)
[2022-02-07 14:04] LABS: MEAN CORPUSCULAR VOLUME 114.7 fl (80.0-96.0)
== END ==
LOC: M WUC 11:43
PROVIDERS: ATTEND Nurse Practitioner
DX: N18.31 Chronic kidney disease, stage 3a (principal); D63.1 Anemia in chronic kidney disease

== ENCOUNTER → 2022-04-03 | Outpatient (CLI) | payer MEDICARE, OTHER, BC ==
[2022-04-03 13:11] LABS: HEMATOCRIT 28.9 % (42.0-52.0); HEMOGLOBIN 9.4 g/dl (13.5-17.5); MEAN CORPUSCULAR HEMOGLOBIN 36.3 pg (27.0-33.0); MEAN CORPUSCULAR HGB CONC 32.5 g/dl (32.0-36.5); MEAN CORPUSCULAR VOLUME 111.6 fl (80.0-96.0); RED BLOOD COUNT 2.59 10^6/uL (4.30-6.10); WHITE BLOOD COUNT 7.1 10^3/uL (4.0-10.0)
== END ==
LOC: M WUC 10:39
PROVIDERS: ATTEND Nurse Practitioner
DX: N18.9 Chronic kidney disease, unspecified (principal); D63.1 Anemia in chronic kidney disease

== ENCOUNTER → 2022-05-01 | Outpatient (CLI) | payer MEDICARE, OTHER, BC | LOC: M WUC 08:57 | PROVIDERS: ATTEND Physician Assistant | DX: M48.04 Spinal stenosis, thoracic region (principal); N18.32 Chronic kidney disease, stage 3b ==

== ENCOUNTER → 2022-05-01 | Outpatient (CLI) | payer MEDICARE, OTHER, BC ==
[2022-05-01 12:31] LABS: HEMATOCRIT 31.1 % (42.0-52.0); HEMOGLOBIN 10.1 g/dl (13.5-17.5); MEAN CORPUSCULAR HEMOGLOBIN 36.6 pg (27.0-33.0); MEAN CORPUSCULAR HGB CONC 32.5 g/dl (32.0-36.5); MEAN CORPUSCULAR VOLUME 112.7 fl (80.0-96.0); RED BLOOD COUNT 2.76 10^6/uL (4.30-6.10); WHITE BLOOD COUNT 7.3 10^3/uL (4.0-10.0)
== END ==
LOC: M WUC 09:13
DX: N18.32 Chronic kidney disease, stage 3b (principal)

== ENCOUNTER → 2022-06-02 | Outpatient (REF) | payer MEDICARE, OTHER ==
[2022-06-02 16:34] LABS: HEMATOCRIT 27.6 % (42.0-52.0); HEMOGLOBIN 9.1 g/dl (13.5-17.5); MEAN CORPUSCULAR HEMOGLOBIN 36.7 pg (27.0-33.0); MEAN CORPUSCULAR VOLUME 111.3 fl (80.0-96.0); RED BLOOD COUNT 2.48 10^6/uL (4.30-6.10)
== END ==
LOC: M LABWUC 16:05
PROVIDERS: ATTEND Nurse Practitioner
DX: N18.32 Chronic kidney disease, stage 3b (principal); D63.1 Anemia in chronic kidney disease

== ENCOUNTER → 2022-09-15 | Outpatient (CLI) | payer MEDICARE, OTHER ==
[2022-09-15 18:32] LABS: HEMATOCRIT 29.7 % (42.0-52.0); HEMOGLOBIN 9.5 g/dl (13.5-17.5); MEAN CORPUSCULAR HEMOGLOBIN 36.4 pg (27.0-33.0); MEAN CORPUSCULAR VOLUME 113.8 fl (80.0-96.0); RED BLOOD COUNT 2.61 10^6/uL (4.30-6.10); WHITE BLOOD COUNT 9.7 10^3/uL (4.0-10.0)
== END ==
LOC: M WUC 11:05
PROVIDERS: ATTEND Nurse Practitioner
DX: N18.32 Chronic kidney disease, stage 3b (principal); Z79.899 Other long term (current) drug therapy

== ENCOUNTER → 2022-10-06 | Outpatient (CLI) | payer MEDICARE, OTHER ==
[2022-10-06 16:53] LABS: ALBUMIN 3.6 G/DL (3.2-5.2); BILIRUBIN,TOTAL 0.6 MG/DL (0.3-1.2); CALCIUM LEVEL 8.5 MG/DL (8.3-10.6); CREATININE FOR GFR 1.33 MG/DL (0.70-1.30); GLOMERULAR FILTRATION RATE 54.4 (>35); POTASSIUM SERUM 4.6 MMOL/L (3.5-5.1); TOTAL PROTEIN 6.4 G/DL (5.7-8.2)
[2022-10-06 17:02] LABS: HEMOGLOBIN 9.2 g/dl (13.5-17.5); MEAN CORPUSCULAR HEMOGLOBIN 35.4 pg (27.0-33.0); MEAN CORPUSCULAR HGB CONC 31.7 g/dl (32.0-36.5); MEAN CORPUSCULAR VOLUME 111.5 fl (80.0-96.0); WHITE BLOOD COUNT 8.6 10^3/uL (4.0-10.0)
[2022-10-06 17:29] LABS: ERYTHROCYTE SEDIMENTATION RATE 16 mm/hr (0-20)
== END ==
LOC: M WUC 13:36
PROVIDERS: ATTEND Physician Assistant
DX: I10 Essential (primary) hypertension (principal); M35.3 Polymyalgia rheumatica; I48.91 Unspecified atrial fibrillation

== ENCOUNTER → 2022-11-09 | Outpatient (CLI) | payer MEDICARE, OTHER ==
[2022-11-09 19:11] LABS: HEMATOCRIT 29.3 % (42.0-52.0); HEMOGLOBIN 9.2 g/dl (13.5-17.5); MEAN CORPUSCULAR HEMOGLOBIN 36.2 pg (27.0-33.0); MEAN CORPUSCULAR HGB CONC 31.4 g/dl (32.0-36.5); RED BLOOD COUNT 2.54 10^6/uL (4.30-6.10); WHITE BLOOD COUNT 8.1 10^3/uL (4.0-10.0)
[2022-11-09 19:18] LABS: MEAN CORPUSCULAR VOLUME 115.4 fl (80.0-96.0)
[2022-11-09 19:40] LABS: ERYTHROCYTE SEDIMENTATION RATE 40 mm/hr (0-20)
[2022-11-09 19:50] LABS: ATYPICAL LYMPH 1 % (0-5); BASOPHILS 2 % (0-1); EOSINOPHILS 1 % (0-3); LYMPHOCYTES 26 % (16-44); MONOCYTES 15 % (0-5); NEUTROPHILS 49 % (28-66); PLATELET ESTIMATE INVALID (NORMAL)
[2022-11-09 19:51] LABS: ANISOCYTOSIS 2+; GIANT PLATELETS 1+
[2022-11-09 19:52] LABS: HYPOCHROMASIA 1+; TARGET CELLS 1+
[2022-11-09 19:53] LABS: POIKILOCYTOSIS 1+
[2022-11-09 19:54] LABS: TEAR DROP CELLS 1+
== END ==
LOC: M WUC 15:27
PROVIDERS: ATTEND Physician Assistant
DX: M35.3 Polymyalgia rheumatica (principal); I10 Essential (primary) hypertension

== ENCOUNTER → 2022-11-24 | Outpatient (REF) | payer MEDICARE, OTHER ==
[2022-11-24 16:35] LABS: HEMATOCRIT 30.3 % (42.0-52.0); HEMOGLOBIN 9.7 g/dl (13.5-17.5); MEAN CORPUSCULAR HEMOGLOBIN 36.1 pg (27.0-33.0); MEAN CORPUSCULAR VOLUME 112.6 fl (80.0-96.0); RED BLOOD COUNT 2.69 10^6/uL (4.30-6.10); WHITE BLOOD COUNT 9.7 10^3/uL (4.0-10.0)
[2022-11-24 16:55] LABS: PERCENT SATURATION 44.2 % (19.7-50.0)
[2022-11-24 16:57] LABS: FERRITIN 271.1 NG/ML (10.5-307.3)
== END ==
LOC: M LABWUC 16:10
PROVIDERS: ATTEND Nurse Practitioner
DX: N18.31 Chronic kidney disease, stage 3a (principal); D50.9 Iron deficiency anemia, unspecified

== ENCOUNTER → 2022-12-29 | Outpatient (CLI) | payer MEDICARE, OTHER ==
[2022-12-29 17:47] LABS: HEMOGLOBIN 10.3 g/dl (13.5-17.5); MEAN CORPUSCULAR HEMOGLOBIN 36.3 pg (27.0-33.0); MEAN CORPUSCULAR HGB CONC 32.2 g/dl (32.0-36.5); MEAN CORPUSCULAR VOLUME 112.7 fl (80.0-96.0); RED BLOOD COUNT 2.84 10^6/uL (4.30-6.10); WHITE BLOOD COUNT 8.8 10^3/uL (4.0-10.0)
[2022-12-29 18:11] LABS: ALBUMIN 3.8 G/DL (3.2-5.2); BILIRUBIN,TOTAL 0.7 MG/DL (0.3-1.2); CALCIUM LEVEL 8.8 MG/DL (8.3-10.6); CHOLESTEROL RISK RATIO 2.93 (<5); CREATININE FOR GFR 1.38 MG/DL (0.70-1.30); GLOMERULAR FILTRATION RATE 52.1 (>35); HDL CHOLESTEROL 39.5 MG/DL (>40); LDL CHOLESTEROL 58.9 MG/DL (<100); NON-HDL-C 76.5 MG/DL; POTASSIUM SERUM 4.1 MMOL/L (3.5-5.1); TOTAL PROTEIN 6.9 G/DL (5.7-8.2)
[2022-12-29 18:13] LABS: THYROID STIMULATING HORMONE 2.737 uIU/ML (0.55-4.78)
== END ==
LOC: M WUC 14:24
PROVIDERS: ATTEND Physician Assistant
DX: I48.91 Unspecified atrial fibrillation (principal); E78.5 Hyperlipidemia, unspecified; I10 Essential (primary) hypertension; R53.83 Other fatigue

== ENCOUNTER → 2023-01-25 | Outpatient (CLI) | payer MEDICARE, OTHER ==
[2023-01-25 19:45] LABS: HEMATOCRIT 30.3 % (42.0-52.0); HEMOGLOBIN 9.8 g/dl (13.5-17.5); MEAN CORPUSCULAR HEMOGLOBIN 36.4 pg (27.0-33.0); MEAN CORPUSCULAR HGB CONC 32.3 g/dl (32.0-36.5); MEAN CORPUSCULAR VOLUME 112.6 fl (80.0-96.0); RED BLOOD COUNT 2.69 10^6/uL (4.30-6.10); WHITE BLOOD COUNT 9.4 10^3/uL (4.0-10.0)
[2023-01-25 19:51] LABS: FERRITIN 232.3 NG/ML (10.5-307.3)
== END ==
LOC: M WUC 15:07
PROVIDERS: ATTEND Nurse Practitioner
DX: N18.31 Chronic kidney disease, stage 3a (principal)

== ENCOUNTER 2023-02-11 08:29 | Inpatient (IN) | payer MEDICARE, OTHER ==
[~2023-02-11] VITALS: Ht 182.9 cm; Wt 97.0 kg
[2023-02-11] MEDS ORDERED: TEST1GEL10 TOP (08:45)
[2023-02-11] MEDS ORDERED: PRED1TABL PO (08:45)
[2023-02-11] MEDS ORDERED: GABA600T4 PO (08:45)
[2023-02-11] MEDS ORDERED: METO1TAB87 PO (08:45)
[2023-02-11] MEDS ORDERED: LEVO50TA5 PO (08:45)
[2023-02-11] MEDS ORDERED: AMIT10TA7 PO (08:45)
[2023-02-11] MEDS ORDERED: CEFD300C41 PO (08:45)
[2023-02-11] MEDS ORDERED: PREV1CAP PO (08:45)
[2023-02-11] MEDS ORDERED: TAMS1CAP17 PO (08:45)
[2023-02-11] MEDS ORDERED: FURO20TA2 PO (08:45)
[2023-02-11] MEDS ORDERED: ASPI81CH33 PO (08:46)
[2023-02-11 10:21] LABS: BASO # 0.1 10^3/uL (0.0-0.2); BASO % 0.2 % (0.0-1.0); EOS % 0.1 % (0.0-3.0); HEMATOCRIT 31.6 % (42.0-52.0); HEMOGLOBIN 10.4 g/dl (13.5-17.5); LYMPH # 1.3 10^3/uL (1.5-5.0); LYMPH % 5.7 % (24.0-44.0); MEAN CORPUSCULAR HEMOGLOBIN 36.6 pg (27.0-33.0); MEAN CORPUSCULAR HGB CONC 32.9 g/dl (32.0-36.5); MEAN CORPUSCULAR VOLUME 111.3 fl (80.0-96.0); MONO % 9.2 % (2.0-8.0); NEUTROPHILS # 18.9 10^3/uL (1.5-8.5); NEUTROPHILS % 83.1 % (36.0-66.0); RED BLOOD COUNT 2.84 10^6/uL (4.30-6.10); WHITE BLOOD COUNT 22.7 10^3/uL (4.0-10.0)
[2023-02-11 10:43] LABS: MONO # 2.1 10^3/uL (0.0-0.8)
[2023-02-11 10:51] LABS: RSV AMPLIFICATION NEGATIVE (NEGATIVE)
[2023-02-11 10:59] LABS: ERYTHROCYTE SEDIMENTATION RATE 28 mm/hr (0-20)
[2023-02-11] MEDS ORDERED: cefTRIAXone SOD 2 GM in D5W MINI-BAG PLUS 50 ML IV ONE (11:20)
[2023-02-11] MEDS ORDERED: NS 3,000 ML in IV 1 EA IV ONE (11:20)
[2023-02-11 11:25] LABS: PLATELET COUNT, AUTOMATED 116 10^3/uL (150-450)
[2023-02-11 11:40] LABS: INR 1.25
[2023-02-11 11:41] LABS: PARTIAL THROMBOPLASTIN TIME 34.4 SECONDS (24.8-34.2)
[2023-02-11 13:18] LABS: ALBUMIN 3.5 G/DL (3.2-5.2); ALKALINE PHOSPHATASE 42 U/L (46-116); ALT/SGPT 17 U/L (7.0-40); AST/SGOT 14 U/L (<34); BILIRUBIN,TOTAL 1.5 MG/DL (0.3-1.2); BLOOD UREA NITROGEN 35 MG/DL (9-23); CALCIUM LEVEL 8.4 MG/DL (8.3-10.6); CARBON DIOXIDE LEVEL 28 MMOL/L (20-31); CHLORIDE LEVEL 102 MMOL/L (98-107); CREATININE FOR GFR 1.64 MG/DL (0.70-1.30); GLOMERULAR FILTRATION RATE 42.7 (>35); GLUCOSE, FASTING 95 MG/DL (74-106); POTASSIUM SERUM 3.8 MMOL/L (3.5-5.1); SODIUM LEVEL 138 MMOL/L (136-145); TOTAL PROTEIN 6.5 G/DL (5.7-8.2)
[2023-02-11] MEDS ORDERED: MAALOX 30 ML SUSP *UDC PO PRN (13:25)
[2023-02-11] MEDS ORDERED: ACETAMINOPHEN TAB 650MG DOSE (2X325MG) PO PRN (13:25)
[2023-02-11] MEDS ORDERED: MOM 30ML SUSPENSION UDC PO PRN (13:25)
[2023-02-11] MEDS ORDERED: FLON27.5 NARES (14:17)
[2023-02-11] MEDS ORDERED: AZEL1SPR3 NARES (14:17)
[2023-02-11] MEDS ORDERED: ASPI81TA26 PO (14:17)
[2023-02-11 14:20] LABS: ANTI-STREPTOLYSIN O QUANT < 25.0 IU/ML (<195)
[2023-02-11] MEDS ORDERED: HOME MED LIST COMPLETE! XX SCH (14:30)
[2023-02-11] MEDS: OMEPRAZOLE 20MG CAP PO SCH (15:10)
[2023-02-11] MEDS: ASPIRIN 81MG ENTERIC TABLET PO SCH (15:11)
[2023-02-11] MEDS ORDERED: VANCOMYCIN HCL 1,000 MG, VIAL MATE ADAPTER 1 EACH in NS 250 ML IV ONE ×2 (16:00→17:00)
[2023-02-11] MEDS: LEVOTHYROXINE 50MCG TABLET (0.05MG) PO SCH (16:06)
[2023-02-11] MEDS: predniSONE 2.5 MG TAB PO SCH (16:07)
[2023-02-11] MEDS: NS 1,000 ML IV SCH (18:26)
[2023-02-11 21:20] VITALS: BP 117/58; O2SAT 94
[2023-02-11] MEDS: TAMSULOSIN 0.4 MG CAP PO SCH (21:33)
[2023-02-11] MEDS: GABAPENTIN 400MG CAP PO SCH (21:34)
[2023-02-11] MEDS: METOPROLOL TART 50 MG TAB PO SCH (21:34)
[2023-02-11] MEDS: DOCUSATE SODIUM 100MG CAPSULE PO SCH (21:34)
[2023-02-11 21:35] VITALS: O2SAT 95
[2023-02-11] MEDS: HEPARIN SOD (PORCINE) 5000UNITS/ML 1ML VIAL/SYRINGE SC SCH (21:35)
[2023-02-11] MEDS: AMITRIPTYLINE 10MG TABLET PO SCH (21:47)
[2023-02-11 21:50] VITALS: O2SAT 94
[2023-02-11] MEDS: FLUTICASONE PROP 0.05% NASAL SPRAY 16 GM (FLONASE) NARES SCH (21:52)
[2023-02-11 22:00] VITALS: O2SAT 94
[2023-02-11 23:00] VITALS: O2SAT 96
[2023-02-11 23:38] VITALS: BP 106/58
[2023-02-12] VITALS (24 sets, daily range): BP systolic 110–139; BP diastolic 53–64; O2SAT 90–99
[2023-02-12] MEDS: NS 1,000 ML IV SCH (03:50)
[2023-02-12] MEDS: HEPARIN SOD (PORCINE) 5000UNITS/ML 1ML VIAL/SYRINGE SC SCH ×3 (05:06→21:18)
[2023-02-12] MEDS: LEVOTHYROXINE 50MCG TABLET (0.05MG) PO SCH (05:06)
[2023-02-12 06:47] LABS: BASO % 0.2 % (0.0-1.0); EOS # 0.2 10^3/uL (0.0-0.5); HEMATOCRIT 26.7 % (42.0-52.0); HEMOGLOBIN 8.7 g/dl (13.5-17.5); LYMPH # 1.4 10^3/uL (1.5-5.0); MEAN CORPUSCULAR HEMOGLOBIN 36.6 pg (27.0-33.0); MEAN CORPUSCULAR HGB CONC 32.6 g/dl (32.0-36.5); MEAN CORPUSCULAR VOLUME 112.2 fl (80.0-96.0); MONO % 14.2 % (2.0-8.0); NEUTROPHILS # 11.3 10^3/uL (1.5-8.5); NEUTROPHILS % 73.6 % (36.0-66.0); RED BLOOD COUNT 2.38 10^6/uL (4.30-6.10); WHITE BLOOD COUNT 15.4 10^3/uL (4.0-10.0)
[2023-02-12 07:09] LABS: MONO # 2.2 10^3/uL (0.0-0.8); PLATELET COUNT, AUTOMATED 94 10^3/uL (150-450)
[2023-02-12 07:10] LABS: CALCIUM LEVEL 7.9 MG/DL (8.3-10.6); CREATININE FOR GFR 1.36 MG/DL (0.70-1.30); POTASSIUM SERUM 4.1 MMOL/L (3.5-5.1)
[2023-02-12] MEDS: OMEPRAZOLE 20MG CAP PO SCH (08:41)
[2023-02-12] MEDS: DOCUSATE SODIUM 100MG CAPSULE PO SCH ×2 (08:41→21:19)
[2023-02-12] MEDS: TAMSULOSIN 0.4 MG CAP PO SCH ×2 (08:41→21:19)
[2023-02-12] MEDS: ASPIRIN 81MG ENTERIC TABLET PO SCH (08:41)
[2023-02-12] MEDS: GABAPENTIN 400MG CAP PO SCH ×2 (08:42→21:19)
[2023-02-12] MEDS: AZELASTINE 137MCG NASAL SPY 30 ML (ASTELIN) SCH (08:42)
[2023-02-12] MEDS: FLUTICASONE PROP 0.05% NASAL SPRAY 16 GM (FLONASE) NARES SCH ×2 (08:42→21:19)
[2023-02-12] MEDS: predniSONE 2.5 MG TAB PO SCH (08:42)
[2023-02-12] MEDS ORDERED: VANCOMYCIN HCL 1,000 MG, VIAL MATE ADAPTER 1 EACH in NS 250 ML IV SCH (12:00)
[2023-02-12] MEDS ORDERED: VANCOMYCIN HCL 750 MG, VIAL MATE ADAPTER 1 EACH in D5W 250 ML IV SCH (12:00)
[2023-02-12] MEDS ORDERED: VANCOMYCIN HCL 500 MG in D5W MINI-BAG PLUS 100 ML IV SCH (13:00)
[2023-02-12] MEDS: FUROSEMIDE 20 MG TAB PO SCH (17:01)
[2023-02-12] MEDS: METOPROLOL TART 50 MG TAB PO SCH (21:18)
[2023-02-12] MEDS: AMITRIPTYLINE 10MG TABLET PO SCH (21:21)
[2023-02-13] MEDS: HEPARIN SOD (PORCINE) 5000UNITS/ML 1ML VIAL/SYRINGE SC SCH ×2 (05:47→14:00)
[2023-02-13] MEDS: LEVOTHYROXINE 50MCG TABLET (0.05MG) PO SCH (05:51)
[2023-02-13 07:06] LABS: HEMATOCRIT 25.2 % (42.0-52.0); HEMOGLOBIN 8.4 g/dl (13.5-17.5); MEAN CORPUSCULAR HEMOGLOBIN 36.7 pg (27.0-33.0); MEAN CORPUSCULAR HGB CONC 33.3 g/dl (32.0-36.5); RED BLOOD COUNT 2.29 10^6/uL (4.30-6.10); WHITE BLOOD COUNT 10.9 10^3/uL (4.0-10.0)
[2023-02-13 07:08] LABS: PLATELET COUNT, AUTOMATED 90 10^3/uL (150-450)
[2023-02-13 07:56] VITALS: BP 128/74
[2023-02-13 08:06] LABS: ATYPICAL LYMPH 1 % (0-5); BASOPHILS 1 % (0-1); EOSINOPHILS 4 % (0-3); LYMPHOCYTES 13 % (16-44); MONOCYTES 12 % (0-5); NEUTROPHILS 64 % (28-66)
[2023-02-13 08:08] LABS: ANISOCYTOSIS 4+
[2023-02-13 08:09] LABS: HYPOCHROMASIA 1+
[2023-02-13 08:10] LABS: PLATELET ESTIMATE DECREASED (NORMAL)
[2023-02-13 08:48] LABS: CALCIUM LEVEL 7.6 MG/DL (8.3-10.6); CREATININE FOR GFR 1.39 MG/DL (0.70-1.30); GLOMERULAR FILTRATION RATE 51.7 (>35); MAGNESIUM LEVEL 2.1 MG/DL (1.8-2.4); POTASSIUM SERUM 3.8 MMOL/L (3.5-5.1)
[2023-02-13] MEDS: predniSONE 2.5 MG TAB PO SCH (09:16)
[2023-02-13] MEDS: ASPIRIN 81MG ENTERIC TABLET PO SCH (09:16)
[2023-02-13] MEDS: DOCUSATE SODIUM 100MG CAPSULE PO SCH (09:16)
[2023-02-13] MEDS: GABAPENTIN 400MG CAP PO SCH (09:17)
[2023-02-13] MEDS: FUROSEMIDE 20 MG TAB PO SCH (09:17)
[2023-02-13] MEDS: TAMSULOSIN 0.4 MG CAP PO SCH (09:17)
[2023-02-13] MEDS: OMEPRAZOLE 20MG CAP PO SCH (09:18)
[2023-02-13] MEDS: FLUTICASONE PROP 0.05% NASAL SPRAY 16 GM (FLONASE) NARES SCH (09:18)
[2023-02-13] MEDS: AZELASTINE 137MCG NASAL SPY 30 ML (ASTELIN) SCH (09:18)
[2023-02-13] MEDS ORDERED: BENZONATATE 100MG CAPSULE PO SCH (14:00)
== END 2023-02-13 15:00 | disposition home health service (06) | DRG 603 ==
LOC: M ED 08:29 → M ED INP 13:22 → M PCU 21:04 → M MS5PR 02-12 22:24
PROVIDERS: ADMIT Internal Medicine; ATTEND Internal Medicine
PROC: B246ZZZ Ultrasonography of Right and Left Heart (ICD-10-PCS; principal; 2023-02-11)
DX: L03.116 Cellulitis of left lower limb (principal); I50.32 Chronic diastolic (congestive) heart failure; N17.9 Acute kidney failure, unspecified; I13.0 Hypertensive heart and chronic kidney disease with heart failure and stage 1 through stage 4 chronic kidney disease, or unspecified chronic kidney disease; I25.10 Atherosclerotic heart disease of native coronary artery without angina pectoris; G47.33 Obstructive sleep apnea (adult) (pediatric); E03.9 Hypothyroidism, unspecified; M19.90 Unspecified osteoarthritis, unspecified site; M54.9 Dorsalgia, unspecified; G89.29 Other chronic pain; K21.9 Gastro-esophageal reflux disease without esophagitis; I48.0 Paroxysmal atrial fibrillation; G62.9 Polyneuropathy, unspecified; N18.30 Chronic kidney disease, stage 3 unspecified; N40.0 Benign prostatic hyperplasia without lower urinary tract symptoms; Z90.49 Acquired absence of other specified parts of digestive tract; Z98.49 Cataract extraction status, unspecified eye; Z79.890 Hormone replacement therapy; Z79.52 Long term (current) use of systemic steroids; Z66 Do not resuscitate; Z79.82 Long term (current) use of aspirin; Z79.899 Other long term (current) drug therapy; Z20.822 Contact with and (suspected) exposure to COVID-19; R13.10 Dysphagia, unspecified

== ENCOUNTER → 2023-02-13 | Outpatient (CLI) | payer MEDICARE, OTHER ==
[~2023-02-13] VITALS: Ht 188 cm; Wt 97.0 kg
[~2023-02-13] MED LIST changes: +ASPI81CH33 PO; +ASPI81TA26 PO; +AZEL1SPR3 NARES; +CEFD300C41 PO; +DALBAVANCIN 1,500 MG in D5W 250 ML IV ONE; +FLON27.5 NARES; +FURO20TA2 PO; +LEVO50TA5 PO; +PRED1TABL PO; +PREV1CAP PO; +TAMS1CAP17 PO
[2023-02-13 15:55] VITALS: BP 133/68
[2023-02-13 17:01] VITALS: BP 128/74
== END ==
LOC: M INFU 15:20
PROVIDERS: ATTEND Internal Medicine
DX: L03.116 Cellulitis of left lower limb (principal)
CPT/HCPCS: 96365; J0875

== ENCOUNTER → 2023-03-14 | Outpatient (CLI) | payer MEDICARE, OTHER ==
[~2023-03-14] MED LIST changes: -DALBAVANCIN 1,500 MG in D5W 250 ML IV ONE; +PRED5TA PO
== END ==
LOC: M WUC 14:08
PROVIDERS: ATTEND Physician Assistant
DX: R10.84 Generalized abdominal pain (principal)

== ENCOUNTER 2023-03-17 03:14 | Inpatient (IN) | payer MEDICARE, BC, OTHER ==
[2023-03-17] VITALS (23 sets, daily range): BP systolic 82–110; BP diastolic 40–72; TEMP 97–98.6; O2SAT 93–100
[~2023-03-17] VITALS: Ht 182.9 cm; Wt 96.7 kg
[~2023-03-17 03:14] MED LIST changes: -PRED5TA PO
[2023-03-17] MEDS ORDERED: SODIUM CHLORIDE 0.9% 1000ML IV SCH (03:40)
[2023-03-17 04:08] LABS: BASO # 0.1 10^3/uL (0.0-0.2); BASO % 0.3 % (0.0-1.0); EOS # 0.1 10^3/uL (0.0-0.5); EOS % 0.5 % (0.0-3.0); HEMATOCRIT 27.5 % (42.0-52.0); LYMPH # 0.7 10^3/uL (1.5-5.0); LYMPH % 3.5 % (24.0-44.0); MEAN CORPUSCULAR HEMOGLOBIN 35.6 pg (27.0-33.0); MEAN CORPUSCULAR HGB CONC 32.7 g/dl (32.0-36.5); MEAN CORPUSCULAR VOLUME 108.7 fl (80.0-96.0); MONO % 11.9 % (2.0-8.0); NEUTROPHILS % 82.9 % (36.0-66.0); RED BLOOD COUNT 2.53 10^6/uL (4.30-6.10); WHITE BLOOD COUNT 19.3 10^3/uL (4.0-10.0)
[2023-03-17 04:27] LABS: CK-MB VALUE MASS < 1.0 NG/ML (<3.6)
[2023-03-17 04:31] LABS: MONO # 2.3 10^3/uL (0.0-0.8)
[2023-03-17 04:33] LABS: CPK CREATINE PHOSPHOKINASE 27 U/L (46-171)
[2023-03-17] MEDS ORDERED: IBUPROFEN 600MG TAB PO ONE (05:30)
[2023-03-17] MEDS ORDERED: PRED5TA PO (05:45)
[2023-03-17 06:15] LABS: ALBUMIN 3.1 G/DL (3.2-5.2); CALCIUM LEVEL 8.3 MG/DL (8.3-10.6); CREATININE FOR GFR 1.56 MG/DL (0.70-1.30); GLOMERULAR FILTRATION RATE 45.3 (>35); POTASSIUM SERUM 3.9 MMOL/L (3.5-5.1); TOTAL PROTEIN 5.9 G/DL (5.7-8.2)
[2023-03-17] MEDS ORDERED: cefTRIAXone SOD 1 GM in D5W MINI-BAG PLUS 50 ML IV ONE ×2 (07:55→09:00)
[2023-03-17] MEDS ORDERED: DOXYCYCLINE HYCLATE 100MG TABLET PO ONE (07:55)
[2023-03-17] MEDS ORDERED: IPRATROPIUM 0.5MG/ALBUTEROL 2.5MG INH SOL UD 3ML (DUONEB) NEB SCH (08:00)
[2023-03-17] MEDS ORDERED: ONDANSETRON 4MG 2ML VIAL IV PRN (08:00)
[2023-03-17] MEDS ORDERED: BISACODYL 10MG SUPP PR PRN (08:00)
[2023-03-17] MEDS ORDERED: IPRATROPIUM 0.5MG/ALBUTEROL 2.5MG INH SOL UD 3ML (DUONEB) NEB PRN ×2 (08:00→10:20)
[2023-03-17] MEDS ORDERED: methylPREDNISolone 40MG 1ML VIAL IV SCH (08:00)
[2023-03-17] MEDS ORDERED: guaiFENesin ER 600 MG TAB PO SCH (09:00)
[2023-03-17] MEDS ORDERED: FAMOTIDINE 20 MG TAB PO SCH (09:00)
[2023-03-17] MEDS ORDERED: FUROSEMIDE 20 MG TAB PO SCH (09:00)
[2023-03-17 09:06] LABS: BILIRUBIN,DIRECT 0.4 MG/DL (<0.4)
[2023-03-17 09:09] LABS: THYROID STIMULATING HORMONE 2.023 uIU/ML (0.55-4.78)
[2023-03-17] MEDS ORDERED: ZINC50TA26 PO (09:16)
[2023-03-17] MEDS ORDERED: MELA10CA2 PO (09:16)
[2023-03-17] MEDS ORDERED: ACID1TAB PO (09:16)
[2023-03-17] MEDS ORDERED: FOLI800C PO (09:16)
[2023-03-17] MEDS ORDERED: FAMO40TA3 PO (09:16)
[2023-03-17] MEDS ORDERED: CALC500C32 PO (09:16)
[2023-03-17] MEDS ORDERED: D3 U5000 PO (09:16)
[2023-03-17] MEDS ORDERED: B-COTAB10 PO (09:16)
[2023-03-17] MEDS ORDERED: CO Q100C10 PO (09:16)
[2023-03-17] MEDS ORDERED: DOCU100C16 PO (09:16)
[2023-03-17] MEDS ORDERED: B-12100021 PO (09:16)
[2023-03-17] MEDS ORDERED: NS 1,000 ML IV ONE ×5 (09:25→17:30)
[2023-03-17] MEDS ORDERED: HOME MED LIST COMPLETE! XX SCH (09:30)
[2023-03-17] MEDS: IPRATROPIUM 0.5MG/ALBUTEROL 2.5MG INH SOL UD 3ML (DUONEB) NEB SCH ×3 (11:28→19:47)
[2023-03-17] MEDS: LEVOTHYROXINE 50MCG TABLET (0.05MG) PO SCH (11:30)
[2023-03-17] MEDS: LACTOBACILLUS ACIDOPHILUS CAP (BACID) PO SCH ×4 (12:11→20:30)
[2023-03-17] MEDS: MIDODRINE 5 MG TAB PO SCH ×2 (12:12→16:25)
[2023-03-17] MEDS: TAMSULOSIN 0.4 MG CAP PO SCH ×2 (12:12→20:30)
[2023-03-17] MEDS: ASPIRIN 81MG ENTERIC TABLET PO SCH (12:13)
[2023-03-17] MEDS: FAMOTIDINE 20 MG TAB PO SCH (12:53)
[2023-03-17 13:31] LABS: BASO % 0.2 % (0.0-1.0); EOS # 0.1 10^3/uL (0.0-0.5); EOS % 0.3 % (0.0-3.0); HEMATOCRIT 24.8 % (42.0-52.0); HEMOGLOBIN 8.2 g/dl (13.5-17.5); LYMPH # 1.6 10^3/uL (1.5-5.0); LYMPH % 8.5 % (24.0-44.0); MEAN CORPUSCULAR HEMOGLOBIN 36.8 pg (27.0-33.0); MEAN CORPUSCULAR HGB CONC 33.1 g/dl (32.0-36.5); MEAN CORPUSCULAR VOLUME 111.2 fl (80.0-96.0); MONO % 13.7 % (2.0-8.0); NEUTROPHILS % 76.3 % (36.0-66.0); RED BLOOD COUNT 2.23 10^6/uL (4.30-6.10); WHITE BLOOD COUNT 18.4 10^3/uL (4.0-10.0)
[2023-03-17 14:03] LABS: MONO # 2.5 10^3/uL (0.0-0.8)
[2023-03-17 15:37] LABS: ABG BASE EXCESS 0.1 (-2.0-2.0); ABG HCO3 24.1 MMOL/L (22.0-26.0); ABG O2 SATURATION 95.5 % (95.0-99.0); ABG PARTIAL PRESSURE CO2 36.2 mmHg (35.0-45.0); ABG STANDARD HCO3 24.6 MMOL/L. (22.0-26.0); ABG TOTAL CO2 25.2 MMOL/L (23.0-31.0); ABG pH (ARTERIAL) 7.441 UNITS (7.350-7.450)
[2023-03-17] MEDS: ACETAMINOPHEN TAB 650MG DOSE (2X325MG) PO PRN (16:25)
[2023-03-17] MEDS: GABAPENTIN 300 MG CAP PO SCH ×2 (16:25→20:30)
[2023-03-17] MEDS ORDERED: AMIODARONE HCL 150 MG in IV 1 EA IV STA (16:57)
[2023-03-17] MEDS ORDERED: DIGOXIN INJ 0.5 MG/2 ML AMP IV STA (16:58)
[2023-03-17] MEDS ORDERED: PIPERACILLIN/TAZOBACTAM SOD 3.375 GM in D5W MINI-BAG PLUS 50 ML IV SCH (17:05)
[2023-03-17] MEDS: PIPERACILLIN/TAZOBACTAM SOD 4.5 GM in D5W MINI-BAG PLUS 50 ML IV SCH ×2 (18:38→23:29)
[2023-03-17] MEDS: AMITRIPTYLINE 10MG TABLET PO SCH (20:30)
[2023-03-17] MEDS: DOXYCYCLINE HYCLATE 100MG TABLET PO SCH (20:31)
[2023-03-17] MEDS: guaiFENesin ER 600 MG TAB PO SCH (20:31)
[2023-03-17] MEDS ORDERED: HEPARIN SOD (PORCINE) 5000UNITS/ML 1ML VIAL/SYRINGE SQ SCH (21:00)
[2023-03-17] MEDS ORDERED: DOCUSATE SODIUM 100MG CAPSULE PO SCH (21:00)
[2023-03-17] MEDS ORDERED: METOPROLOL TART 25 MG TABLET PO SCH (21:00)
[2023-03-17] MEDS: SENOKOT S TAB PO PRN (23:33)
[2023-03-18] VITALS (13 sets, daily range): BP systolic 115–132; BP diastolic 59–83; TEMP 96.8–98.1; O2SAT 92–100
[2023-03-18] MEDS: PIPERACILLIN/TAZOBACTAM SOD 4.5 GM in D5W MINI-BAG PLUS 50 ML IV SCH ×3 (05:17→18:45)
[2023-03-18] MEDS: LEVOTHYROXINE 50MCG TABLET (0.05MG) PO SCH (05:17)
[2023-03-18 06:55] LABS: BASO % 0.3 % (0.0-1.0); EOS # 0.1 10^3/uL (0.0-0.5); EOS % 1.9 % (0.0-3.0); HEMATOCRIT 25.7 % (42.0-52.0); HEMOGLOBIN 8.2 g/dl (13.5-17.5); LYMPH # 1.2 10^3/uL (1.5-5.0); LYMPH % 16.6 % (24.0-44.0); MEAN CORPUSCULAR HEMOGLOBIN 35.8 pg (27.0-33.0); MEAN CORPUSCULAR HGB CONC 31.9 g/dl (32.0-36.5); MEAN CORPUSCULAR VOLUME 112.2 fl (80.0-96.0); MONO # 1.4 10^3/uL (0.0-0.8); MONO % 20.2 % (2.0-8.0); NEUTROPHILS # 4.2 10^3/uL (1.5-8.5); NEUTROPHILS % 59.8 % (36.0-66.0); RED BLOOD COUNT 2.29 10^6/uL (4.30-6.10); WHITE BLOOD COUNT 6.9 10^3/uL (4.0-10.0)
[2023-03-18] MEDS: IPRATROPIUM 0.5MG/ALBUTEROL 2.5MG INH SOL UD 3ML (DUONEB) NEB SCH ×4 (06:57→20:21)
[2023-03-18 07:11] LABS: BLOOD UREA NITROGEN 28 MG/DL (9-23); CALCIUM LEVEL 7.7 MG/DL (8.3-10.6); CARBON DIOXIDE LEVEL 26 MMOL/L (20-31); CHLORIDE LEVEL 112 MMOL/L (98-107); CREATININE FOR GFR 1.53 MG/DL (0.70-1.30); DIGOXIN LEVEL < 0.1 NG/ML (0.8-2.0); GLOMERULAR FILTRATION RATE 46.3 (>35); GLUCOSE, FASTING 94 MG/DL (74-106); POTASSIUM SERUM 4.1 MMOL/L (3.5-5.1); SODIUM LEVEL 144 MMOL/L (136-145)
[2023-03-18] MEDS: TAMSULOSIN 0.4 MG CAP PO SCH ×2 (08:09→20:28)
[2023-03-18] MEDS: SENOKOT S TAB PO PRN (08:09)
[2023-03-18] MEDS: guaiFENesin ER 600 MG TAB PO SCH ×2 (08:10→20:28)
[2023-03-18] MEDS: ACETAMINOPHEN TAB 650MG DOSE (2X325MG) PO PRN (08:10)
[2023-03-18] MEDS: MIDODRINE 5 MG TAB PO SCH ×3 (08:11→15:45)
[2023-03-18] MEDS: ASPIRIN 81MG ENTERIC TABLET PO SCH (08:11)
[2023-03-18] MEDS: LACTOBACILLUS ACIDOPHILUS CAP (BACID) PO SCH ×4 (08:11→20:28)
[2023-03-18] MEDS: GABAPENTIN 300 MG CAP PO SCH ×3 (08:11→20:28)
[2023-03-18] MEDS: DOXYCYCLINE HYCLATE 100MG TABLET PO SCH ×2 (08:12→20:27)
[2023-03-18] MEDS: FAMOTIDINE 20 MG TAB PO SCH (08:12)
[2023-03-18] MEDS ORDERED: cefTRIAXone SOD 2 GM in D5W MINI-BAG PLUS 50 ML IV SCH (09:00)
[2023-03-18] MEDS: AMITRIPTYLINE 10MG TABLET PO SCH (20:27)
[2023-03-18] MEDS ORDERED: MIRALAX *UNIT DOSE* 17GM PACKET PO PRN (22:10)
[2023-03-18] MEDS ORDERED: LACTULOSE 20GM/30ML SYRUP UDC PO PRN (22:10)
[2023-03-19] MEDS: PIPERACILLIN/TAZOBACTAM SOD 4.5 GM in D5W MINI-BAG PLUS 50 ML IV SCH ×5 (00:10→23:24)
[2023-03-19] MEDS: LEVOTHYROXINE 50MCG TABLET (0.05MG) PO SCH (05:14)
[2023-03-19 06:00] VITALS: BP 133/87; TEMP 97.9; O2SAT 99
[2023-03-19 07:09] LABS: HEMOGLOBIN 8.4 g/dl (13.5-17.5); MEAN CORPUSCULAR HEMOGLOBIN 36.4 pg (27.0-33.0); MEAN CORPUSCULAR HGB CONC 32.3 g/dl (32.0-36.5); MEAN CORPUSCULAR VOLUME 112.6 fl (80.0-96.0); RED BLOOD COUNT 2.31 10^6/uL (4.30-6.10); WHITE BLOOD COUNT 6.1 10^3/uL (4.0-10.0)
[2023-03-19 07:25] LABS: BLOOD UREA NITROGEN 24 MG/DL (9-23); CALCIUM LEVEL 8.1 MG/DL (8.3-10.6); CARBON DIOXIDE LEVEL 26 MMOL/L (20-31); CHLORIDE LEVEL 111 MMOL/L (98-107); CREATININE FOR GFR 1.45 MG/DL (0.70-1.30); DIGOXIN LEVEL < 0.1 NG/ML (0.8-2.0); GLOMERULAR FILTRATION RATE 49.2 (>35); GLUCOSE, FASTING 76 MG/DL (74-106); POTASSIUM SERUM 3.9 MMOL/L (3.5-5.1); SODIUM LEVEL 142 MMOL/L (136-145)
[2023-03-19 07:43] LABS: ANISOCYTOSIS 2+; ATYPICAL LYMPH 1 % (0-5); EOSINOPHILS 2 % (0-3); LYMPHOCYTES 25 % (16-44); MICROCYTOSIS 1+; MONOCYTES 13 % (0-5); NEUTROPHILS 59 % (28-66); PLATELET ESTIMATE DECREASED (NORMAL); POIKILOCYTOSIS 2+; POLYCHROMASIA 1+
[2023-03-19 07:44] LABS: HYPOCHROMASIA 1+; SCHISTOCYTES 1+; TARGET CELLS 1+
[2023-03-19] MEDS: MIDODRINE 5 MG TAB PO SCH (08:00)
[2023-03-19] MEDS: IPRATROPIUM 0.5MG/ALBUTEROL 2.5MG INH SOL UD 3ML (DUONEB) NEB SCH ×4 (08:16→20:20)
[2023-03-19] MEDS: TAMSULOSIN 0.4 MG CAP PO SCH ×2 (09:28→21:37)
[2023-03-19] MEDS: guaiFENesin ER 600 MG TAB PO SCH ×2 (09:28→21:38)
[2023-03-19] MEDS: DOXYCYCLINE HYCLATE 100MG TABLET PO SCH ×2 (09:29→21:38)
[2023-03-19] MEDS: GABAPENTIN 300 MG CAP PO SCH ×3 (09:29→21:38)
[2023-03-19] MEDS: FAMOTIDINE 20 MG TAB PO SCH (09:29)
[2023-03-19] MEDS: LACTOBACILLUS ACIDOPHILUS CAP (BACID) PO SCH ×4 (09:29→21:38)
[2023-03-19] MEDS: ASPIRIN 81MG ENTERIC TABLET PO SCH (09:29)
[2023-03-19 14:00] VITALS: BP 134/82; TEMP 97.4; O2SAT 97
[2023-03-19] MEDS: AMITRIPTYLINE 10MG TABLET PO SCH (21:37)
[2023-03-19 23:30] VITALS: BP 122/77; TEMP 98.1; O2SAT 97
[2023-03-20 03:52] VITALS: BP 129/69; TEMP 97.5; O2SAT 99
[2023-03-20] MEDS: LEVOTHYROXINE 50MCG TABLET (0.05MG) PO SCH (05:27)
[2023-03-20] MEDS: PIPERACILLIN/TAZOBACTAM SOD 4.5 GM in D5W MINI-BAG PLUS 50 ML IV SCH (05:27)
[2023-03-20] MEDS ORDERED: LevoFLOXacin 750 MG TABLET PO SCH ×2 (06:00→10:05)
[2023-03-20] MEDS: IPRATROPIUM 0.5MG/ALBUTEROL 2.5MG INH SOL UD 3ML (DUONEB) NEB SCH ×2 (07:44→11:20)
[2023-03-20] MEDS: DOXYCYCLINE HYCLATE 100MG TABLET PO SCH (08:00)
[2023-03-20] MEDS: guaiFENesin ER 600 MG TAB PO SCH (08:00)
[2023-03-20] MEDS: LACTOBACILLUS ACIDOPHILUS CAP (BACID) PO SCH ×2 (08:00→11:35)
[2023-03-20] MEDS: FAMOTIDINE 20 MG TAB PO SCH (08:00)
[2023-03-20] MEDS: TAMSULOSIN 0.4 MG CAP PO SCH (08:00)
[2023-03-20] MEDS: ASPIRIN 81MG ENTERIC TABLET PO SCH (08:01)
[2023-03-20] MEDS: GABAPENTIN 300 MG CAP PO SCH (08:01)
[2023-03-20 08:28] LABS: BASO % 0.6 % (0.0-1.0); EOS # 0.3 10^3/uL (0.0-0.5); EOS % 4.1 % (0.0-3.0); HEMATOCRIT 29.4 % (42.0-52.0); HEMOGLOBIN 9.7 g/dl (13.5-17.5); LYMPH # 1.6 10^3/uL (1.5-5.0); LYMPH % 23.9 % (24.0-44.0); MEAN CORPUSCULAR HEMOGLOBIN 36.5 pg (27.0-33.0); MEAN CORPUSCULAR VOLUME 110.5 fl (80.0-96.0); MONO # 0.9 10^3/uL (0.0-0.8); MONO % 13.3 % (2.0-8.0); NEUTROPHILS # 3.8 10^3/uL (1.5-8.5); NEUTROPHILS % 56.3 % (36.0-66.0); RED BLOOD COUNT 2.66 10^6/uL (4.30-6.10); WHITE BLOOD COUNT 6.8 10^3/uL (4.0-10.0)
[2023-03-20 08:48] LABS: BLOOD UREA NITROGEN 21 MG/DL (9-23); CALCIUM LEVEL 8.1 MG/DL (8.3-10.6); CARBON DIOXIDE LEVEL 27 MMOL/L (20-31); CHLORIDE LEVEL 109 MMOL/L (98-107); CREATININE FOR GFR 1.41 MG/DL (0.70-1.30); DIGOXIN LEVEL < 0.1 NG/ML (0.8-2.0); GLOMERULAR FILTRATION RATE 50.9 (>35); GLUCOSE, FASTING 80 MG/DL (74-106); POTASSIUM SERUM 4.4 MMOL/L (3.5-5.1); SODIUM LEVEL 144 MMOL/L (136-145)
[2023-03-20] MEDS ORDERED: MIRA3350 PO (10:16)
[2023-03-20] MEDS ORDERED: MUCI600T31 PO (10:16)
[2023-03-20] MEDS ORDERED: LEVO1TAB40 PO (10:16)
[2023-03-20] MEDS ORDERED: QC F0.52 PO (10:16)
[2023-03-20] MEDS: SENOKOT S TAB PO PRN (10:34)
[2023-03-22 15:08] LABS: BODY FLUID CULTURE Not indicated. (.); LEGIONELLA ANTIGEN URINE Negative (Negative); ORGANISM ID Not indicated. (.); SPECIMEN SOURCE Urine (.); URINE STREP PNEUMONIAE ANTIGEN Negative (Negative)
== END 2023-03-20 13:50 | disposition home health service (06) | DRG 871 ==
LOC: EDBD 03:14 → M ED 03:14 → M ED INP 07:53 → ENRESERVDT 08:18 → ENRESERVTM 08:18 → ENRESERV 09:33 → M PCU 10:35 → M MS5PR 03-18 15:56
PROVIDERS: ADMIT General Practice; ATTEND Student in an Organized Health Care Education/Training Program
DX: A41.9 Sepsis, unspecified organism (principal); J15.6 Pneumonia due to other Gram-negative bacteria; I50.32 Chronic diastolic (congestive) heart failure; I13.0 Hypertensive heart and chronic kidney disease with heart failure and stage 1 through stage 4 chronic kidney disease, or unspecified chronic kidney disease; Z66 Do not resuscitate; I48.0 Paroxysmal atrial fibrillation; I25.10 Atherosclerotic heart disease of native coronary artery without angina pectoris; G47.33 Obstructive sleep apnea (adult) (pediatric); E03.9 Hypothyroidism, unspecified; M19.90 Unspecified osteoarthritis, unspecified site; N18.30 Chronic kidney disease, stage 3 unspecified; N40.0 Benign prostatic hyperplasia without lower urinary tract symptoms; M54.9 Dorsalgia, unspecified; G89.29 Other chronic pain; L98.419 Non-pressure chronic ulcer of buttock with unspecified severity; K21.9 Gastro-esophageal reflux disease without esophagitis; G62.9 Polyneuropathy, unspecified; Z90.49 Acquired absence of other specified parts of digestive tract; Z98.49 Cataract extraction status, unspecified eye; Z85.828 Personal history of other malignant neoplasm of skin; Z20.822 Contact with and (suspected) exposure to COVID-19; Z79.82 Long term (current) use of aspirin; Z79.890 Hormone replacement therapy; Z79.52 Long term (current) use of systemic steroids; Z79.899 Other long term (current) drug therapy; R65.20 Severe sepsis without septic shock

== ENCOUNTER → 2023-04-02 | Outpatient (CLI) | payer MEDICARE, BC, OTHER ==
[~2023-04-02] MED LIST changes: +B-12100021 PO; +B-COTAB10 PO; +CALC500C32 PO; +CO Q100C10 PO; +CYAN-1 PO; -CYAN100050 PO; +D3 U5000 PO; +DOCU100C16 PO; +FAMO40TA3 PO; -K-TA10TA PO; +LEVO1TAB40 PO; +MELA10CA2 PO; +MIRA3350 PO; +MUCI600T31 PO; +POTA-164 PO; +PRED5TA PO; +QC F0.52 PO; +ZINC50TA26 PO
[2023-04-02 19:20] LABS: HEMATOCRIT 30.3 % (42.0-52.0); HEMOGLOBIN 9.8 g/dl (13.5-17.5); MEAN CORPUSCULAR HGB CONC 32.3 g/dl (32.0-36.5); MEAN CORPUSCULAR VOLUME 111.4 fl (80.0-96.0); RED BLOOD COUNT 2.72 10^6/uL (4.30-6.10); WHITE BLOOD COUNT 9.8 10^3/uL (4.0-10.0)
[2023-04-02 19:22] LABS: FERRITIN 325.3 NG/ML (10.5-307.3)
== END ==
LOC: M WUC 13:39
PROVIDERS: ATTEND Nurse Practitioner
DX: N18.31 Chronic kidney disease, stage 3a (principal)

== ENCOUNTER 2023-05-21 09:45 | Inpatient (IN) | payer MEDICARE, BC, OTHER ==
[~2023-05-21] VITALS: Ht 193 cm; Wt 95.0 kg
[2023-05-21] MEDS ORDERED: FAMO-142 PO (10:04)
[2023-05-21] MEDS ORDERED: NS 2,780 ML in IV 1 EA IV ONE (11:10)
[2023-05-21] MEDS ORDERED: PIPERACILLIN/TAZOBACTAM SOD 4.5 GM in D5W MINI-BAG PLUS 50 ML IV ONE (11:10)
[2023-05-21] MEDS ORDERED: ACETAMINOPHEN 325 MG TAB PO ONE (11:10)
[2023-05-21 12:16] LABS: ABG BASE EXCESS 1.5 (-2.0-2.0); ABG HCO3 24.2 MMOL/L (22.0-26.0); ABG O2 SATURATION 95.3 % (95.0-99.0); ABG PARTIAL PRESSURE CO2 31.8 mmHg (35.0-45.0); ABG PARTIAL PRESSURE O2 71.1 mmHg (75.0-100.0); ABG STANDARD HCO3 25.8 MMOL/L. (22.0-26.0); ABG TOTAL CO2 25.2 MMOL/L (23.0-31.0)
[2023-05-21 12:53] LABS: APPEARANCE, URINE CLEAR (CLEAR); BACTERIA, URINE AUTO NEGATIVE (NEGATIVE); BILIRUBIN, URINE AUTO NEGATIVE (NEGATIVE); BLOOD, URINE BLOOD NEGATIVE (NEGATIVE); COLOR, URINE YELLOW (YELLOW); GLUCOSE, URINE (UA) AUTO NEGATIVE (NEGATIVE); KETONE, URINE AUTO NEGATIVE (NEGATIVE); LEUKOCYTE ESTERASE, URINE AUTO NEGATIVE (NEGATIVE); NITRITE, URINE AUTO NEGATIVE (NEGATIVE); PROTEIN, URINE AUTO NEGATIVE (NEGATIVE); RBC, URINE AUTO 0 /HPF (0-3); SPECIFIC GRAVITY URINE AUTO 1.013 (1.002-1.035); SQUAMOUS EPITHELIAL CELL UR AU 0 /HPF (0-6); UROBILINOGEN, URINE AUTO 0.2 mg/dL (0.0-2.0); WBC, URINE AUTO 0 /HPF (0-3)
[2023-05-21 12:54] LABS: BASO # 0.1 10^3/uL (0.0-0.2); BASO % 0.2 % (0.0-1.0); EOS % 0.1 % (0.0-3.0); HEMATOCRIT 33.5 % (42.0-52.0); HEMOGLOBIN 11.1 g/dl (13.5-17.5); LYMPH % 3.5 % (24.0-44.0); MEAN CORPUSCULAR HGB CONC 33.1 g/dl (32.0-36.5); MEAN CORPUSCULAR VOLUME 108.8 fl (80.0-96.0); MONO % 9.5 % (2.0-8.0); NEUTROPHILS # 23.9 10^3/uL (1.5-8.5); RED BLOOD COUNT 3.08 10^6/uL (4.30-6.10); WHITE BLOOD COUNT 28.2 10^3/uL (4.0-10.0)
[2023-05-21 13:02] LABS: CK-MB VALUE MASS < 1.0 NG/ML (<3.6)
[2023-05-21 13:03] LABS: AMYLASE 61 U/L (30-118); CPK CREATINE PHOSPHOKINASE 37 U/L (46-171)
[2023-05-21] MEDS ORDERED: MED REC IN PROGRESS XX SCH (13:05)
[2023-05-21 13:11] LABS: PROCALCITONIN 0.23 ng/ml
[2023-05-21 13:17] LABS: INR 1.23; PROTHROMBIN TIME 15.1 SECONDS (12.5-14.5)
[2023-05-21 13:18] LABS: PARTIAL THROMBOPLASTIN TIME 36.1 SECONDS (24.8-34.2)
[2023-05-21 13:38] LABS: ALBUMIN 3.8 G/DL (3.2-5.2); ALKALINE PHOSPHATASE 58 U/L (46-116); ALT/SGPT 17 U/L (7.0-40); AST/SGOT 15 U/L (<34); BILIRUBIN,DIRECT 0.6 MG/DL (<0.4); BILIRUBIN,TOTAL 1.4 MG/DL (0.3-1.2); BLOOD UREA NITROGEN 26 MG/DL (9-23); CALCIUM LEVEL 9.3 MG/DL (8.3-10.6); CARBON DIOXIDE LEVEL 29 MMOL/L (20-31); CHLORIDE LEVEL 100 MMOL/L (98-107); CREATININE FOR GFR 1.49 MG/DL (0.70-1.30); GLOMERULAR FILTRATION RATE 47.6 (>35); GLUCOSE, FASTING 95 MG/DL (74-106); SODIUM LEVEL 138 MMOL/L (136-145); TOTAL PROTEIN 7.4 G/DL (5.7-8.2)
[2023-05-21 13:39] LABS: MONO # 2.7 10^3/uL (0.0-0.8)
[2023-05-21 13:40] LABS: THYROXINE (T4) 6.1 UG/DL (4.5-10.9)
[2023-05-21 13:41] LABS: THYROID STIMULATING HORMONE 2.239 uIU/ML (0.55-4.78)
[2023-05-21] MEDS ORDERED: NOREPINEPHRINE 4MG IN D5 250ML 4 MG in IV 1 EA IV SCH ×2 (13:45)
[2023-05-21 13:52] LABS: CK-MB VALUE MASS < 1.0 NG/ML (<3.6)
[2023-05-21] MEDS ORDERED: ISOVUE-370 76% 100ML VIAL As Ordered ONE (13:55)
[2023-05-21 13:58] LABS: CPK CREATINE PHOSPHOKINASE 28 U/L (46-171); MB/CK RELATIVE INDEX 3.57 (< OR =4)
[2023-05-21] MEDS ORDERED: OCUVTAB4 PO (14:05)
[2023-05-21] MEDS ORDERED: RA N1TAB PO (14:05)
[2023-05-21] MEDS ORDERED: BENEPOW18 PO (14:05)
[2023-05-21] MEDS ORDERED: ASCO500T PO (14:05)
[2023-05-21] MEDS ORDERED: MUCI1TAB18 PO (14:05)
[2023-05-21] MEDS ORDERED: HOME MED LIST COMPLETE! XX SCH (14:15)
[2023-05-21] MEDS ORDERED: NS 1,000 ML IV ONE (15:15)
[2023-05-21] MEDS ORDERED: VANCOMYCIN HCL 1,000 MG, VIAL MATE ADAPTER 1 EACH in D5W 250 ML IV SCH (15:55)
[2023-05-21] MEDS ORDERED: ACETAMINOPHEN TAB 650MG DOSE (2X325MG) PO PRN (15:55)
[2023-05-21] MEDS ORDERED: ALBUTEROL SULFATE 2.5MG/0.5ML INH NEB SOLN NEB PRN (16:15)
[2023-05-21] MEDS: NS 1,000 ML IV SCH (16:35)
[2023-05-21] MEDS: PIPERACILLIN/TAZOBACTAM SOD 3.375 GM in D5W MINI-BAG PLUS 50 ML IV SCH ×2 (17:08→23:51)
[2023-05-21] MEDS ORDERED: VANCOMYCIN HCL 1,000 MG, VIAL MATE ADAPTER 1 EACH in D5W 250 ML IV ONE ×2 (18:00→19:00)
[2023-05-21] MEDS: LACTOBACILLUS ACIDOPHILUS CAP (BACID) PO SCH (18:56)
[2023-05-21] MEDS: GABAPENTIN 300 MG CAP PO SCH (18:56)
[2023-05-21] MEDS: AMITRIPTYLINE 10MG TABLET PO SCH (20:37)
[2023-05-21] MEDS: guaiFENesin ER 600 MG TAB PO SCH (20:37)
[2023-05-21] MEDS: MAGNESIUM OXIDE 400MG TAB (MAG-OX) PO SCH (20:38)
[2023-05-21] MEDS: DOXYCYCLINE HYCLATE 100MG TABLET PO SCH (20:38)
[2023-05-21] MEDS: RAMELTEON 8 MG TAB (ROZEREM) PO SCH (20:38)
[2023-05-21] MEDS: HEPARIN SOD (PORCINE) 5000UNITS/ML 1ML VIAL/SYRINGE SQ SCH (20:41)
[2023-05-22] MEDS: NS 1,000 ML IV SCH (02:46)
[2023-05-22] MEDS: PIPERACILLIN/TAZOBACTAM SOD 3.375 GM in D5W MINI-BAG PLUS 50 ML IV SCH ×4 (04:48→23:33)
[2023-05-22 06:00] LABS: HEMATOCRIT 25.6 % (42.0-52.0); HEMOGLOBIN 8.4 g/dl (13.5-17.5); MEAN CORPUSCULAR HEMOGLOBIN 36.8 pg (27.0-33.0); MEAN CORPUSCULAR HGB CONC 32.8 g/dl (32.0-36.5); MEAN CORPUSCULAR VOLUME 112.3 fl (80.0-96.0); RED BLOOD COUNT 2.28 10^6/uL (4.30-6.10); WHITE BLOOD COUNT 13.4 10^3/uL (4.0-10.0)
[2023-05-22] MEDS: LEVOTHYROXINE 50MCG TABLET (0.05MG) PO SCH (06:09)
[2023-05-22 06:37] LABS: PLATELET COUNT, AUTOMATED 70 10^3/uL (150-450)
[2023-05-22 06:45] LABS: ALBUMIN 2.6 G/DL (3.2-5.2); CALCIUM LEVEL 7.7 MG/DL (8.3-10.6); CREATININE FOR GFR 1.39 MG/DL (0.70-1.30); GLOMERULAR FILTRATION RATE 51.6 (>35); POTASSIUM SERUM 3.8 MMOL/L (3.5-5.1); TOTAL PROTEIN 5.2 G/DL (5.7-8.2)
[2023-05-22] MEDS: DOXYCYCLINE HYCLATE 100MG TABLET PO SCH ×2 (07:48→21:44)
[2023-05-22] MEDS: HEPARIN SOD (PORCINE) 5000UNITS/ML 1ML VIAL/SYRINGE SQ SCH ×2 (07:48→21:45)
[2023-05-22] MEDS: guaiFENesin ER 600 MG TAB PO SCH ×2 (07:49→21:45)
[2023-05-22] MEDS: ASCORBIC ACID 500 MG TAB PO SCH (07:49)
[2023-05-22] MEDS: LACTOBACILLUS ACIDOPHILUS CAP (BACID) PO SCH ×2 (07:49→18:37)
[2023-05-22] MEDS: CYANOCOBALAMIN 500 MCG TAB PO SCH (07:49)
[2023-05-22] MEDS: FAMOTIDINE 20 MG TAB PO SCH (07:49)
[2023-05-22] MEDS: PANTOPRAZOLE 40MG TAB (PROTONIX) PO SCH (07:49)
[2023-05-22] MEDS: FOLIC ACID 1MG TAB PO SCH (07:49)
[2023-05-22] MEDS: ASPIRIN 81MG ENTERIC TABLET PO SCH (07:49)
[2023-05-22] MEDS ORDERED: VANCOMYCIN HCL 750 MG, VIAL MATE ADAPTER 1 EACH in D5W 250 ML IV SCH ×2 (08:00→09:00)
[2023-05-22] MEDS: OCUVITE 1 TAB PO SCH (13:47)
[2023-05-22] MEDS: AZELASTINE 137MCG NASAL SPY 30 ML (ASTELIN) SCH (13:48)
[2023-05-22 15:30] VITALS: BP 123/55; TEMP 97.4; O2SAT 97
[2023-05-22] MEDS: GABAPENTIN 300 MG CAP PO SCH (18:37)
[2023-05-22 20:10] VITALS: BP 129/62; TEMP 98.9; O2SAT 96
[2023-05-22] MEDS ORDERED: DOXYCYCLINE HYCLATE 100MG TABLET PO SCH (21:00)
[2023-05-22] MEDS: RAMELTEON 8 MG TAB (ROZEREM) PO SCH (21:44)
[2023-05-22] MEDS: AMITRIPTYLINE 10MG TABLET PO SCH (21:44)
[2023-05-22] MEDS: MAGNESIUM OXIDE 400MG TAB (MAG-OX) PO SCH (21:45)
[2023-05-22 22:00] VITALS: TEMP 98.3
[2023-05-23] VITALS (8 sets, daily range): BP systolic 100–137; BP diastolic 59–71; TEMP 96.7–98.2; O2SAT 93–100
[2023-05-23 05:22] LABS: BASO % 0.4 % (0.0-1.0); EOS # 0.4 10^3/uL (0.0-0.5); EOS % 4.3 % (0.0-3.0); HEMATOCRIT 25.7 % (42.0-52.0); HEMOGLOBIN 8.5 g/dl (13.5-17.5); LYMPH # 1.9 10^3/uL (1.5-5.0); LYMPH % 19.3 % (24.0-44.0); MEAN CORPUSCULAR HEMOGLOBIN 36.6 pg (27.0-33.0); MEAN CORPUSCULAR HGB CONC 33.1 g/dl (32.0-36.5); MEAN CORPUSCULAR VOLUME 110.8 fl (80.0-96.0); MONO % 17.1 % (2.0-8.0); NEUTROPHILS # 5.5 10^3/uL (1.5-8.5); NEUTROPHILS % 57.1 % (36.0-66.0); RED BLOOD COUNT 2.32 10^6/uL (4.30-6.10); WHITE BLOOD COUNT 9.6 10^3/uL (4.0-10.0)
[2023-05-23 05:48] LABS: CALCIUM LEVEL 7.9 MG/DL (8.3-10.6); CREATININE FOR GFR 1.34 MG/DL (0.70-1.30); GLOMERULAR FILTRATION RATE 53.8 (>35); MAGNESIUM LEVEL 2.2 MG/DL (1.8-2.4); PHOSPHORUS LEVEL 2.7 MG/DL (2.4-5.1); POTASSIUM SERUM 3.6 MMOL/L (3.5-5.1)
[2023-05-23 05:58] LABS: MONO # 1.6 10^3/uL (0.0-0.8)
[2023-05-23 05:59] LABS: PLATELET COUNT, AUTOMATED 68 10^3/uL (150-450)
[2023-05-23] MEDS: LEVOTHYROXINE 50MCG TABLET (0.05MG) PO SCH (06:54)
[2023-05-23] MEDS: PIPERACILLIN/TAZOBACTAM SOD 3.375 GM in D5W MINI-BAG PLUS 50 ML IV SCH ×4 (06:54→23:21)
[2023-05-23] MEDS: FAMOTIDINE 20 MG TAB PO SCH (08:39)
[2023-05-23] MEDS: AZELASTINE 137MCG NASAL SPY 30 ML (ASTELIN) SCH (08:39)
[2023-05-23] MEDS: guaiFENesin ER 600 MG TAB PO SCH ×2 (08:39→21:35)
[2023-05-23] MEDS: FOLIC ACID 1MG TAB PO SCH (08:40)
[2023-05-23] MEDS: ASPIRIN 81MG ENTERIC TABLET PO SCH (08:40)
[2023-05-23] MEDS: HEPARIN SOD (PORCINE) 5000UNITS/ML 1ML VIAL/SYRINGE SQ SCH ×2 (08:40→19:46)
[2023-05-23] MEDS: DOXYCYCLINE HYCLATE 100MG TABLET PO SCH ×2 (08:40→21:35)
[2023-05-23] MEDS: CYANOCOBALAMIN 500 MCG TAB PO SCH (08:40)
[2023-05-23] MEDS: PANTOPRAZOLE 40MG TAB (PROTONIX) PO SCH (08:40)
[2023-05-23] MEDS: OCUVITE 1 TAB PO SCH (08:40)
[2023-05-23] MEDS: ASCORBIC ACID 500 MG TAB PO SCH (08:40)
[2023-05-23] MEDS: LACTOBACILLUS ACIDOPHILUS CAP (BACID) PO SCH ×2 (08:40→17:13)
[2023-05-23] MEDS: GABAPENTIN 300 MG CAP PO SCH (17:13)
[2023-05-23] MEDS: FUROSEMIDE 20 MG TAB PO SCH (17:13)
[2023-05-23] MEDS: AMITRIPTYLINE 10MG TABLET PO SCH (21:35)
[2023-05-23] MEDS: MAGNESIUM OXIDE 400MG TAB (MAG-OX) PO SCH (21:35)
[2023-05-23] MEDS: RAMELTEON 8 MG TAB (ROZEREM) PO SCH (21:35)
[2023-05-23] MEDS ORDERED: [UNRECOGNIZED DRUG - OTHER] PRN (21:50)
[2023-05-24] MEDS: PIPERACILLIN/TAZOBACTAM SOD 3.375 GM in D5W MINI-BAG PLUS 50 ML IV SCH ×2 (05:26→12:30)
[2023-05-24] MEDS: LEVOTHYROXINE 50MCG TABLET (0.05MG) PO SCH (05:27)
[2023-05-24 06:21] LABS: ALBUMIN 2.9 G/DL (3.2-5.2); BILIRUBIN,TOTAL 0.8 MG/DL (0.3-1.2); CALCIUM LEVEL 8.2 MG/DL (8.3-10.6); CREATININE FOR GFR 1.32 MG/DL (0.70-1.30); GLOMERULAR FILTRATION RATE 54.7 (>35); MAGNESIUM LEVEL 2.1 MG/DL (1.8-2.4); PHOSPHORUS LEVEL 3.2 MG/DL (2.4-5.1); POTASSIUM SERUM 4.1 MMOL/L (3.5-5.1); TOTAL PROTEIN 5.9 G/DL (5.7-8.2)
[2023-05-24 06:37] VITALS: BP 130/64; TEMP 98.2; O2SAT 100
[2023-05-24] MEDS: FUROSEMIDE 20 MG TAB PO SCH (09:00)
[2023-05-24] MEDS: HEPARIN SOD (PORCINE) 5000UNITS/ML 1ML VIAL/SYRINGE SQ SCH (09:00)
[2023-05-24] MEDS: AZELASTINE 137MCG NASAL SPY 30 ML (ASTELIN) SCH (09:00)
[2023-05-24] MEDS: ASPIRIN 81MG ENTERIC TABLET PO SCH (09:41)
[2023-05-24] MEDS: ASCORBIC ACID 500 MG TAB PO SCH (09:41)
[2023-05-24] MEDS: DOXYCYCLINE HYCLATE 100MG TABLET PO SCH (09:41)
[2023-05-24] MEDS: guaiFENesin ER 600 MG TAB PO SCH (09:42)
[2023-05-24] MEDS: CYANOCOBALAMIN 500 MCG TAB PO SCH (09:42)
[2023-05-24] MEDS: PANTOPRAZOLE 40MG TAB (PROTONIX) PO SCH (09:42)
[2023-05-24] MEDS: OCUVITE 1 TAB PO SCH (09:42)
[2023-05-24] MEDS: LACTOBACILLUS ACIDOPHILUS CAP (BACID) PO SCH (09:42)
[2023-05-24] MEDS: FAMOTIDINE 20 MG TAB PO SCH (09:43)
[2023-05-24] MEDS: FOLIC ACID 1MG TAB PO SCH (09:43)
[2023-05-24] MEDS ORDERED: LEVO1TAB40 PO (10:00)
[2023-05-24] MEDS ORDERED: DOXY-444 PO (10:00)
[2023-05-25 15:08] LABS: BODY FLUID CULTURE Not indicated. (.); LEGIONELLA ANTIGEN URINE Negative (Negative); ORGANISM ID Not indicated. (.); SPECIMEN SOURCE Urine (.); URINE STREP PNEUMONIAE ANTIGEN Negative (Negative)
== END 2023-05-24 15:05 | disposition home or self-care (01) | DRG 871 ==
LOC: M ED 09:45 → M ED INP 15:55 → ENRESERV 05-22 14:55 → M PCU 05-22 15:24 → M MS5PR 05-23 18:45
PROVIDERS: ADMIT Internal Medicine; ATTEND Internal Medicine
DX: A41.9 Sepsis, unspecified organism (principal); J15.1 Pneumonia due to Pseudomonas; L03.116 Cellulitis of left lower limb; I50.32 Chronic diastolic (congestive) heart failure; I13.0 Hypertensive heart and chronic kidney disease with heart failure and stage 1 through stage 4 chronic kidney disease, or unspecified chronic kidney disease; N18.30 Chronic kidney disease, stage 3 unspecified; G62.9 Polyneuropathy, unspecified; I25.10 Atherosclerotic heart disease of native coronary artery without angina pectoris; G47.33 Obstructive sleep apnea (adult) (pediatric); E03.9 Hypothyroidism, unspecified; M19.90 Unspecified osteoarthritis, unspecified site; M54.9 Dorsalgia, unspecified; D64.9 Anemia, unspecified; G89.29 Other chronic pain; N40.0 Benign prostatic hyperplasia without lower urinary tract symptoms; K21.9 Gastro-esophageal reflux disease without esophagitis; I48.0 Paroxysmal atrial fibrillation; Z98.49 Cataract extraction status, unspecified eye; D69.6 Thrombocytopenia, unspecified; Z90.49 Acquired absence of other specified parts of digestive tract; Y95 Nosocomial condition; E86.0 Dehydration; R26.81 Unsteadiness on feet; R29.6 Repeated falls; R53.1 Weakness; Z79.890 Hormone replacement therapy; Z79.82 Long term (current) use of aspirin; Z79.899 Other long term (current) drug therapy

== ENCOUNTER → 2023-06-02 | Outpatient (CLI) | payer MEDICARE, BC, OTHER ==
[~2023-06-02] MED LIST changes: +ASCO500T PO; +BENEPOW18 PO; +DOXY-444 PO; +FAMO-142 PO; +MUCI1TAB18 PO; +RA N1TAB PO
[2023-06-02 11:14] LABS: HEMATOCRIT 29.3 % (42.0-52.0); HEMOGLOBIN 9.6 g/dl (13.5-17.5); MEAN CORPUSCULAR HEMOGLOBIN 36.1 pg (27.0-33.0); MEAN CORPUSCULAR HGB CONC 32.8 g/dl (32.0-36.5); MEAN CORPUSCULAR VOLUME 110.2 fl (80.0-96.0); PLATELET COUNT, AUTOMATED 115 10^3/uL (150-450); RED BLOOD COUNT 2.66 10^6/uL (4.30-6.10); WHITE BLOOD COUNT 11.4 10^3/uL (4.0-10.0)
[2023-06-02 11:43] LABS: ATYPICAL LYMPH 1 % (0-5); BASOPHILS 1 % (0-1); EOSINOPHILS 3 % (0-3); LYMPHOCYTES 15 % (16-44); METAMYELOCYTES 1 % (0-0); MONOCYTES 13 % (0-5); NEUTROPHILS 59 % (28-66)
[2023-06-02 11:44] LABS: PLATELET CLUMPS SMALL AMT
[2023-06-02 11:45] LABS: PLATELET ESTIMATE DECREASED (NORMAL); POLYCHROMASIA 1+
[2023-06-02 11:47] LABS: ANISOCYTOSIS 2+
[2023-06-02 11:49] LABS: TEAR DROP CELLS 1+
== END ==
LOC: M LAB 10:31
PROVIDERS: ATTEND Physician Assistant
DX: J18.1 Lobar pneumonia, unspecified organism (principal)

== ENCOUNTER 2023-08-19 13:58 | Inpatient (IN) | payer MEDICARE, BC, OTHER ==
[~2023-08-19] VITALS: Ht 182.9 cm; Wt 90.5 kg
[~2023-08-19 13:58] MED LIST changes: -CEFD300C41 PO; +CEFD300C42 PO
[2023-08-19 15:13] LABS: HEMOGLOBIN 10.3 g/dl (13.5-17.5); MEAN CORPUSCULAR HEMOGLOBIN 37.2 pg (27.0-33.0); MEAN CORPUSCULAR HGB CONC 33.2 g/dl (32.0-36.5); MEAN CORPUSCULAR VOLUME 111.9 fl (80.0-96.0); RED BLOOD COUNT 2.77 10^6/uL (4.30-6.10); WHITE BLOOD COUNT 21.5 10^3/uL (4.0-10.0)
[2023-08-19 15:18] LABS: ALBUMIN 3.5 G/DL (3.2-5.2); BILIRUBIN,DIRECT 0.3 MG/DL (<0.4); BILIRUBIN,TOTAL 0.5 MG/DL (0.3-1.2); CALCIUM LEVEL 8.1 MG/DL (8.3-10.6); CREATININE FOR GFR 1.42 MG/DL (0.70-1.30); GLOMERULAR FILTRATION RATE 50.3 (>35); POTASSIUM SERUM 4.2 MMOL/L (3.5-5.1); TOTAL PROTEIN 7.2 G/DL (5.7-8.2)
[2023-08-19 15:35] LABS: APPEARANCE, URINE CLEAR (CLEAR); BACTERIA, URINE AUTO NEGATIVE (NEGATIVE); BILIRUBIN, URINE AUTO NEGATIVE (NEGATIVE); BLOOD, URINE BLOOD NEGATIVE (NEGATIVE); COLOR, URINE YELLOW (YELLOW); GLUCOSE, URINE (UA) AUTO NEGATIVE (NEGATIVE); KETONE, URINE AUTO TRACE mg/dL (NEGATIVE); LEUKOCYTE ESTERASE, URINE AUTO NEGATIVE (NEGATIVE); NITRITE, URINE AUTO NEGATIVE (NEGATIVE); PROTEIN, URINE AUTO NEGATIVE (NEGATIVE); RBC, URINE AUTO 10 /HPF (0-3); SPECIFIC GRAVITY URINE AUTO 1.015 (1.002-1.035); SQUAMOUS EPITHELIAL CELL UR AU 0 /HPF (0-6); UROBILINOGEN, URINE AUTO 0.2 mg/dL (0.0-2.0); WBC, URINE AUTO 0 /HPF (0-3)
[2023-08-19 15:43] LABS: INR 1.26; PROTHROMBIN TIME 15.4 SECONDS (12.5-14.5)
[2023-08-19 15:44] LABS: PARTIAL THROMBOPLASTIN TIME 36.6 SECONDS (24.8-34.2)
[2023-08-19 15:55] LABS: ATYPICAL LYMPH 5 % (0-5); BASOPHILS 1 % (0-1); LYMPHOCYTES 1 % (16-44); MONOCYTES 14 % (0-5); NEUTROPHILS 79 % (28-66)
[2023-08-19 15:56] LABS: PLATELET ESTIMATE DECREASED (NORMAL); POLYCHROMASIA 1+
[2023-08-19 15:57] LABS: HYPOCHROMASIA 2+
[2023-08-19] MEDS ORDERED: PIPERACILLIN/TAZOBACTAM SOD 4.5 GM in D5W MINI-BAG PLUS 50 ML IV ONE (16:05)
[2023-08-19] MEDS ORDERED: ACETAMINOPHEN TAB 650MG DOSE (2X325MG) PO ONE (16:25)
[2023-08-19] MEDS ORDERED: ACETAMINOPHEN TAB 650MG DOSE (2X325MG) PO PRN (16:40)
[2023-08-19] MEDS ORDERED: NS 1,000 ML IV SCH (16:45)
[2023-08-19] MEDS ORDERED: CEFD300C42 PO (17:10)
[2023-08-19] MEDS ORDERED: HOME MED LIST COMPLETE! XX SCH (17:15)
[2023-08-19 17:20] LABS: PROCALCITONIN 0.08 ng/ml
[2023-08-19 17:55] LABS: HEMATOCRIT 26.1 % (42.0-52.0); HEMOGLOBIN 8.7 g/dl (13.5-17.5); MEAN CORPUSCULAR HGB CONC 33.3 g/dl (32.0-36.5); MEAN CORPUSCULAR VOLUME 111.1 fl (80.0-96.0); RED BLOOD COUNT 2.35 10^6/uL (4.30-6.10); WHITE BLOOD COUNT 19.2 10^3/uL (4.0-10.0)
[2023-08-19 17:58] LABS: PLATELET COUNT, AUTOMATED 91 10^3/uL (150-450)
[2023-08-19 18:15] VITALS: BP 123/56; TEMP 101.3; O2SAT 90
[2023-08-19] MEDS ORDERED: LR 1,000 ML IV ONE (20:25)
[2023-08-19] MEDS: ASPIRIN 81MG ENTERIC TABLET PO SCH (20:32)
[2023-08-19] MEDS: TAMSULOSIN 0.4 MG CAP PO SCH (20:32)
[2023-08-19] MEDS: AMITRIPTYLINE 10MG TABLET PO SCH (20:32)
[2023-08-19] MEDS: METOPROLOL TART 12.5 MG PER 1/2 TAB PO SCH (20:36)
[2023-08-19 20:44] VITALS: BP 124/57; TEMP 100.6; O2SAT 95
[2023-08-19] MEDS: HEPARIN SOD (PORCINE) 5000UNITS/ML 1ML VIAL/SYRINGE SC SCH (22:00)
[2023-08-19 22:10] VITALS: TEMP 99
[2023-08-19] MEDS: PIPERACILLIN/TAZOBACTAM SOD 3.375 GM in D5W MINI-BAG PLUS 50 ML IV SCH (22:21)
[2023-08-20] MEDS: PIPERACILLIN/TAZOBACTAM SOD 3.375 GM in D5W MINI-BAG PLUS 50 ML IV SCH ×4 (04:40→21:47)
[2023-08-20] MEDS: LEVOTHYROXINE 50MCG TABLET (0.05MG) PO SCH (05:51)
[2023-08-20] MEDS: HEPARIN SOD (PORCINE) 5000UNITS/ML 1ML VIAL/SYRINGE SC SCH ×2 (05:51→14:00)
[2023-08-20 05:52] VITALS: BP 121/57; TEMP 99; O2SAT 95
[2023-08-20 05:55] LABS: HEMATOCRIT 26.8 % (42.0-52.0); HEMOGLOBIN 8.7 g/dl (13.5-17.5); MEAN CORPUSCULAR HEMOGLOBIN 36.1 pg (27.0-33.0); MEAN CORPUSCULAR HGB CONC 32.5 g/dl (32.0-36.5); MEAN CORPUSCULAR VOLUME 111.2 fl (80.0-96.0); RED BLOOD COUNT 2.41 10^6/uL (4.30-6.10); WHITE BLOOD COUNT 12.1 10^3/uL (4.0-10.0)
[2023-08-20 06:12] LABS: PLATELET COUNT, AUTOMATED 75 10^3/uL (150-450)
[2023-08-20 06:17] LABS: CREATININE FOR GFR 1.6 MG/DL (0.70-1.30); GLOMERULAR FILTRATION RATE 43.8 (>35); MAGNESIUM LEVEL 2.3 MG/DL (1.8-2.4)
[2023-08-20 08:53] LABS: C REACTIVE PROTEIN QUANTITATIV 6.6 MG/DL (<1.0)
[2023-08-20] MEDS ORDERED: AZELASTINE 137MCG NASAL SPY 30 ML (ASTELIN) SCH (09:00)
[2023-08-20] MEDS: AZELASTINE 137MCG NASAL SPY 30 ML (ASTELIN) SCH ×2 (09:00→19:51)
[2023-08-20] MEDS: FUROSEMIDE 20 MG TAB PO SCH (09:00)
[2023-08-20] MEDS: ASCORBIC ACID 500 MG TAB PO SCH (09:00)
[2023-08-20 09:04] LABS: IMMUNOGLOBULIN M 319.2 MG/DL (50-300)
[2023-08-20 09:06] LABS: PROCALCITONIN 0.14 ng/ml
[2023-08-20 09:15] LABS: IMMUNOGLOBULIN A 506.7 MG/DL (40-350)
[2023-08-20 09:26] LABS: ERYTHROCYTE SEDIMENTATION RATE 21 mm/hr (0-20)
[2023-08-20 14:00] VITALS: BP 146/85; TEMP 97.9; O2SAT 95
[2023-08-20] MEDS: GABAPENTIN 300 MG CAP PO SCH (19:50)
[2023-08-20] MEDS: guaiFENesin ER TABLET 600 MG TAB PO SCH (19:50)
[2023-08-20] MEDS: TAMSULOSIN 0.4 MG CAP PO SCH (19:50)
[2023-08-20] MEDS: METOPROLOL TART 12.5 MG PER 1/2 TAB PO SCH (19:51)
[2023-08-20] MEDS: AMITRIPTYLINE 10MG TABLET PO SCH (19:51)
[2023-08-20] MEDS: ASPIRIN 81MG ENTERIC TABLET PO SCH (19:51)
[2023-08-20 20:00] VITALS: BP 153/91; TEMP 98; O2SAT 95
[2023-08-21] MEDS: PIPERACILLIN/TAZOBACTAM SOD 3.375 GM in D5W MINI-BAG PLUS 50 ML IV SCH ×4 (03:21→21:09)
[2023-08-21] MEDS: LEVOTHYROXINE 50MCG TABLET (0.05MG) PO SCH (05:16)
[2023-08-21 05:17] VITALS: BP 119/66; TEMP 98.4; O2SAT 96
[2023-08-21] MEDS: FUROSEMIDE 20 MG TAB PO SCH (09:36)
[2023-08-21] MEDS: guaiFENesin ER TABLET 600 MG TAB PO SCH ×2 (09:36→20:12)
[2023-08-21] MEDS: AZELASTINE 137MCG NASAL SPY 30 ML (ASTELIN) SCH ×2 (09:36→20:13)
[2023-08-21] MEDS: ASCORBIC ACID 500 MG TAB PO SCH (09:36)
[2023-08-21 14:00] VITALS: BP 141/70; TEMP 98.1; O2SAT 97
[2023-08-21] MEDS: GABAPENTIN 300 MG CAP PO SCH (20:11)
[2023-08-21 20:12] VITALS: BP 134/84
[2023-08-21] MEDS: AMITRIPTYLINE 10MG TABLET PO SCH (20:12)
[2023-08-21] MEDS: ASPIRIN 81MG ENTERIC TABLET PO SCH (20:12)
[2023-08-21] MEDS: TAMSULOSIN 0.4 MG CAP PO SCH (20:12)
[2023-08-21] MEDS: METOPROLOL TART 12.5 MG PER 1/2 TAB PO SCH (20:12)
[2023-08-21 22:00] VITALS: BP 134/84; TEMP 98.3; O2SAT 96
[2023-08-22] MEDS: PIPERACILLIN/TAZOBACTAM SOD 3.375 GM in D5W MINI-BAG PLUS 50 ML IV SCH ×3 (03:33→15:39)
[2023-08-22] MEDS: LEVOTHYROXINE 50MCG TABLET (0.05MG) PO SCH (04:23)
[2023-08-22 04:40] VITALS: BP 124/67; TEMP 98.2; O2SAT 96
[2023-08-22] MEDS: guaiFENesin ER TABLET 600 MG TAB PO SCH (09:17)
[2023-08-22] MEDS: FUROSEMIDE 20 MG TAB PO SCH (09:17)
[2023-08-22] MEDS: ASCORBIC ACID 500 MG TAB PO SCH (09:17)
[2023-08-22] MEDS: AZELASTINE 137MCG NASAL SPY 30 ML (ASTELIN) SCH (09:18)
[2023-08-22] MEDS ORDERED: [UNRECOGNIZED DRUG - CODE] IV (12:10)
[2023-08-22 14:00] VITALS: BP 125/65; TEMP 98.2; O2SAT 97
[2023-08-22 16:20] LABS: BASO % 0.3 % (0.0-1.0); EOS # 0.4 10^3/uL (0.0-0.5); EOS % 4.7 % (0.0-3.0); HEMATOCRIT 29.3 % (42.0-52.0); HEMOGLOBIN 9.7 g/dl (13.5-17.5); LYMPH # 1.5 10^3/uL (1.5-5.0); LYMPH % 16.6 % (24.0-44.0); MEAN CORPUSCULAR HEMOGLOBIN 36.9 pg (27.0-33.0); MEAN CORPUSCULAR HGB CONC 33.1 g/dl (32.0-36.5); MEAN CORPUSCULAR VOLUME 111.4 fl (80.0-96.0); NEUTROPHILS # 4.9 10^3/uL (1.5-8.5); NEUTROPHILS % 56.1 % (36.0-66.0); RED BLOOD COUNT 2.63 10^6/uL (4.30-6.10); WHITE BLOOD COUNT 8.7 10^3/uL (4.0-10.0)
[2023-08-22 16:32] LABS: ERYTHROCYTE SEDIMENTATION RATE 97 mm/hr (0-20)
[2023-08-22 16:41] LABS: C REACTIVE PROTEIN QUANTITATIV 4.5 MG/DL (<1.0)
[2023-08-22 16:41] LABS: MONO # 1.7 10^3/uL (0.0-0.8)
[2023-08-22 16:43] LABS: PLATELET COUNT, AUTOMATED 86 10^3/uL (150-450)
[2023-08-22 16:43] LABS: CALCIUM LEVEL 8.2 MG/DL (8.3-10.6); CREATININE FOR GFR 1.49 MG/DL (0.70-1.30); GLOMERULAR FILTRATION RATE 47.6 (>35); POTASSIUM SERUM 3.7 MMOL/L (3.5-5.1)
[2023-08-22 16:44] LABS: MONO % 19.3 % (2.0-8.0)
[2023-08-22 16:54] LABS: PROCALCITONIN 0.07 ng/ml
[2023-08-22] MEDS ORDERED: BACI1CAP PO (17:17)
[2023-08-22] MEDS ORDERED: AMOX875T2 PO (17:17)
[2023-08-22] MEDS ORDERED: PIPERACILLIN/TAZOBACTAM SOD 3.375 GM in D5W MINI-BAG PLUS 50 ML IV SCH (22:00)
[2023-08-22] MEDS ORDERED: PIPERACILLIN/TAZOBACTAM SOD 2.25 GM in D5W MINI-BAG PLUS 50 ML IV SCH (22:00)
== END 2023-08-22 18:01 | disposition home or self-care (01) | DRG 872 ==
LOC: M ED 13:58 → M ED INP 16:37 → ENRESERV 17:12 → M MSPAV 17:53
PROVIDERS: ADMIT Family Medicine; ATTEND General Practice
PROC: B246ZZZ Ultrasonography of Right and Left Heart (ICD-10-PCS; principal; 2023-08-21)
DX: A41.81 Sepsis due to Enterococcus (principal); L03.116 Cellulitis of left lower limb; I50.32 Chronic diastolic (congestive) heart failure; I13.0 Hypertensive heart and chronic kidney disease with heart failure and stage 1 through stage 4 chronic kidney disease, or unspecified chronic kidney disease; E87.20 Acidosis, unspecified; N17.9 Acute kidney failure, unspecified; G47.33 Obstructive sleep apnea (adult) (pediatric); E03.9 Hypothyroidism, unspecified; I27.20 Pulmonary hypertension, unspecified; I48.0 Paroxysmal atrial fibrillation; J32.9 Chronic sinusitis, unspecified; I25.10 Atherosclerotic heart disease of native coronary artery without angina pectoris; N18.9 Chronic kidney disease, unspecified; I73.9 Peripheral vascular disease, unspecified; N40.0 Benign prostatic hyperplasia without lower urinary tract symptoms; Z79.82 Long term (current) use of aspirin; Z79.899 Other long term (current) drug therapy; Z79.890 Hormone replacement therapy

== ENCOUNTER → 2023-09-11 | Outpatient (CLI) | payer MEDICARE, BC, OTHER ==
[~2023-09-11] MED LIST changes: +AMOX875T2 PO; +BACI1CAP PO; +CEFD1CAP9 PO; -CEFD300C42 PO; +[UNRECOGNIZED DRUG - CODE] IV
[2023-09-11 15:52] LABS: HEMATOCRIT 32.4 % (42.0-52.0); HEMOGLOBIN 10.5 g/dl (13.5-17.5); MEAN CORPUSCULAR HEMOGLOBIN 36.3 pg (27.0-33.0); MEAN CORPUSCULAR HGB CONC 32.4 g/dl (32.0-36.5); MEAN CORPUSCULAR VOLUME 112.1 fl (80.0-96.0); RED BLOOD COUNT 2.89 10^6/uL (4.30-6.10)
[2023-09-11 16:04] LABS: ERYTHROCYTE SEDIMENTATION RATE 58 mm/hr (0-20)
[2023-09-11 16:21] LABS: ATYPICAL LYMPH 7 % (0-5); EOSINOPHILS 5 % (0-3); LYMPHOCYTES 28 % (16-44); MONOCYTES 16 % (0-5); NEUTROPHILS 41 % (28-66)
[2023-09-11 16:22] LABS: ANISOCYTOSIS 3+; GIANT PLATELETS 1+; HYPOCHROMASIA 1+; PLATELET CLUMPS MODERATE AMT
[2023-09-11 16:24] LABS: POIKILOCYTOSIS 1+
[2023-09-11 16:26] LABS: STOMATOCYTES 1+
[2023-09-11 16:28] LABS: PLATELET ESTIMATE DECREASED (NORMAL)
== END ==
LOC: M PLALAB 12:34
PROVIDERS: ATTEND Internal Medicine Infectious Disease
DX: L03.119 Cellulitis of unspecified part of limb (principal); D63.1 Anemia in chronic kidney disease; N18.9 Chronic kidney disease, unspecified

== ENCOUNTER → 2023-10-29 | Outpatient (CLI) | payer MEDICARE, BC, OTHER ==
[2023-10-29 16:43] LABS: BASO # 0.1 10^3/uL (0.0-0.2); BASO % 0.9 % (0.0-1.0); EOS # 0.4 10^3/uL (0.0-0.5); EOS % 3.4 % (0.0-3.0); HEMATOCRIT 35.5 % (42.0-52.0); HEMOGLOBIN 11.6 g/dl (13.5-17.5); LYMPH # 2.3 10^3/uL (1.5-5.0); LYMPH % 19.4 % (24.0-44.0); MEAN CORPUSCULAR HEMOGLOBIN 35.8 pg (27.0-33.0); MEAN CORPUSCULAR HGB CONC 32.7 g/dl (32.0-36.5); MEAN CORPUSCULAR VOLUME 109.6 fl (80.0-96.0); NEUTROPHILS # 5.5 10^3/uL (1.5-8.5); NEUTROPHILS % 47.3 % (36.0-66.0); RED BLOOD COUNT 3.24 10^6/uL (4.30-6.10); WHITE BLOOD COUNT 11.6 10^3/uL (4.0-10.0)
[2023-10-29 16:54] LABS: IMMUNOGLOBULIN G 1684 MG/DL (650-1600)
[2023-10-29 16:57] LABS: IMMUNOGLOBULIN E 1929.1 IU/ML (0-378); MONO # 2.9 10^3/uL (0.0-0.8)
[2023-10-29 20:21] LABS: IMMUNOGLOBULIN A > 540.0 MG/DL (40-350)
[2023-11-01 11:10] LABS: IgG SERUM (part of Subclasses) 1565 mg/dL (603-1613); IgG Subclass 1 556 mg/dL (248-810); IgG Subclass 2 836 mg/dL (130-555); IgG Subclass 3 193 mg/dL (15-102); IgG Subclass 4 129 mg/dL (2-96)
== END ==
LOC: M PLALAB 13:03
PROVIDERS: ATTEND Internal Medicine Infectious Disease
DX: D47.2 Monoclonal gammopathy (principal); L03.119 Cellulitis of unspecified part of limb

== ENCOUNTER → 2024-01-25 | Outpatient (CLI) | payer MEDICARE, BC, OTHER ==
[~2024-01-25] MED LIST changes: -MELA1TAB9 PO; +MELA5TAB58 PO; +TEST10GE TOP; -TEST1GEL10 TOP
[2024-01-25 16:51] LABS: URIC ACID 8.1 MG/DL (3.7-9.2)
[2024-01-25 17:03] LABS: HEMATOCRIT 35.9 % (42.0-52.0); HEMOGLOBIN 11.6 g/dl (13.5-17.5); MEAN CORPUSCULAR HEMOGLOBIN 35.8 pg (27.0-33.0); MEAN CORPUSCULAR HGB CONC 32.3 g/dl (32.0-36.5); MEAN CORPUSCULAR VOLUME 110.8 fl (80.0-96.0); RED BLOOD COUNT 3.24 10^6/uL (4.30-6.10); WHITE BLOOD COUNT 13.9 10^3/uL (4.0-10.0)
[2024-01-25 18:06] LABS: ERYTHROCYTE SEDIMENTATION RATE 77 mm/hr (0-20)
[2024-01-25 18:37] LABS: ATYPICAL LYMPH 3 % (0-5); BASOPHILS 1 % (0-1); EOSINOPHILS 3 % (0-3); LYMPHOCYTES 13 % (16-44); MONOCYTES 25 % (0-5); NEUTROPHILS 50 % (28-66); PLATELET ESTIMATE NORMAL (NORMAL)
== END ==
LOC: M WUC 10:48
PROVIDERS: ATTEND Physician Assistant
DX: M25.432 Effusion, left wrist (principal)

== ENCOUNTER 2024-03-24 10:11 | Inpatient (IN) | payer MEDICARE, BC ==
[~2024-03-24] VITALS: Ht 182.9 cm; Wt 90.8 kg
[~2024-03-24 10:11] MED LIST changes: +DOXY-440 PO; -DOXY-444 PO
[2024-03-24 10:52] LABS: APPEARANCE, URINE HAZY (CLEAR); BACTERIA, URINE AUTO NEGATIVE (NEGATIVE); BILIRUBIN, URINE AUTO NEGATIVE (NEGATIVE); BLOOD, URINE BLOOD 1+ (NEGATIVE); CALCIUM OXALATE CRYSTALS SMALL; COLOR, URINE YELLOW (YELLOW); GLUCOSE, URINE (UA) AUTO NEGATIVE (NEGATIVE); KETONE, URINE AUTO NEGATIVE (NEGATIVE); LEUKOCYTE ESTERASE, URINE AUTO 2+ (NEGATIVE); MUCUS, URINE SMALL (NEGATIVE); NITRITE, URINE AUTO NEGATIVE (NEGATIVE); PROTEIN, URINE AUTO 1+ mg/dL (NEGATIVE); RBC, URINE AUTO 61 /HPF (0-3); SQUAMOUS EPITHELIAL CELL UR AU 0 /HPF (0-6); UROBILINOGEN, URINE AUTO 0.2 mg/dL (0.0-2.0); WBC, URINE AUTO 20 /HPF (0-3)
[2024-03-24 11:00] LABS: BASO # 0.1 10^3/uL (0.0-0.2); BASO % 0.5 % (0.0-1.0); EOS # 0.2 10^3/uL (0.0-0.5); EOS % 0.8 % (0.0-3.0); HEMATOCRIT 35.3 % (42.0-52.0); HEMOGLOBIN 12.1 g/dl (13.5-17.5); LYMPH # 1.2 10^3/uL (1.5-5.0); LYMPH % 5.2 % (24.0-44.0); MEAN CORPUSCULAR HEMOGLOBIN 35.6 pg (27.0-33.0); MEAN CORPUSCULAR HGB CONC 34.3 g/dl (32.0-36.5); MEAN CORPUSCULAR VOLUME 103.8 fl (80.0-96.0); MONO % 24.6 % (2.0-8.0); NEUTROPHILS # 15.3 10^3/uL (1.5-8.5); NEUTROPHILS % 64.7 % (36.0-66.0); WHITE BLOOD COUNT 23.7 10^3/uL (4.0-10.0)
[2024-03-24 11:11] LABS: INR 1.2; PARTIAL THROMBOPLASTIN TIME 35.2 SECONDS (24.8-34.2); PROTHROMBIN TIME 14.9 SECONDS (12.5-14.5)
[2024-03-24] MEDS: NS 2,770 ML in IV 1 EA IV ONE (11:28)
[2024-03-24] MEDS: cefTRIAXone SOD 2 GM in D5W MINI-BAG PLUS 50 ML IV ONE (11:28)
[2024-03-24 11:30] LABS: AMYLASE 53 U/L (30-118); CPK CREATINE PHOSPHOKINASE 24 U/L (46-171)
[2024-03-24 11:31] LABS: ALBUMIN 3.6 G/DL (3.2-5.2); ALKALINE PHOSPHATASE 128 U/L (46-116); ALT/SGPT 71 U/L (7.0-40); AST/SGOT 54 U/L (<34); BILIRUBIN,DIRECT 0.5 MG/DL (<0.4); BILIRUBIN,TOTAL 1.1 MG/DL (0.3-1.2); BLOOD UREA NITROGEN 26 MG/DL (9-23); CALCIUM LEVEL 8.2 MG/DL (8.3-10.6); CARBON DIOXIDE LEVEL 28 MMOL/L (20-31); CHLORIDE LEVEL 102 MMOL/L (98-107); CK-MB VALUE MASS < 1.0 NG/ML (<3.6); GLOMERULAR FILTRATION RATE 47.2 (>35); GLUCOSE, FASTING 101 MG/DL (74-106); MB/CK RELATIVE INDEX 4.16 (< OR =4); POTASSIUM SERUM 3.7 MMOL/L (3.5-5.1); SODIUM LEVEL 136 MMOL/L (136-145); TOTAL PROTEIN 7.1 G/DL (5.7-8.2)
[2024-03-24 11:42] LABS: PROCALCITONIN 0.57 ng/ml
[2024-03-24] MEDS ORDERED: ISOVUE-370 76% 100ML VIAL As Ordered ONE (11:48)
[2024-03-24 11:50] LABS: MONO # 5.8 10^3/uL (0.0-0.8)
[2024-03-24] MEDS ORDERED: TURM500T PO ×2 (12:34)
[2024-03-24] MEDS ORDERED: POLY17PO18 PO (12:34)
[2024-03-24] MEDS ORDERED: POTA99CA2 PO (12:34)
[2024-03-24] MEDS ORDERED: PRED5TA PO (12:34)
[2024-03-24] MEDS ORDERED: GABA600T4 PO (12:34)
[2024-03-24] MEDS ORDERED: RA M500C PO (12:34)
[2024-03-24] MEDS ORDERED: CEPH500C PO (12:34)
[2024-03-24] MEDS ORDERED: HOME MED LIST COMPLETE! XX SCH (12:35)
[2024-03-24 12:41] LABS: VENOUS BASE EXCESS 0.7 (-2.0-2.0); VENOUS HCO3 25.2 MMOL/L (23.0-27.0); VENOUS O2 SATURATION 98.9 % (60.0-80.0); VENOUS PARTIAL PRESSURE CO2 39.6 mmHg (38.0-50.0); VENOUS PARTIAL PRESSURE O2 147.6 mmHg (30.0-50.0); VENOUS PH 7.421 UNITS (7.330-7.430); VENOUS STANDARD HCO3 25.2 MMOL/L; VENOUS TOTAL CO2 26.4 MMOL/L (24.0-28.0)
[2024-03-24] MEDS ORDERED: PIPERACILLIN/TAZOBACTAM SOD 3.375 GM in D5W MINI-BAG PLUS 50 ML IV SCH (13:50)
[2024-03-24] MEDS ORDERED: HEPARIN SOD (PORCINE) 5000UNITS/ML 1ML VIAL/SYRINGE SC SCH (13:50)
[2024-03-24] MEDS ORDERED: MOM 30ML SUSPENSION UDC PO PRN (13:50)
[2024-03-24] MEDS ORDERED: MAALOX 30 ML SUSP *UDC PO PRN (13:50)
[2024-03-24 14:14] LABS: PLATELET COUNT, AUTOMATED 93 10^3/uL (150-450)
[2024-03-24] MEDS ORDERED: MIRALAX *UNIT DOSE* 17GM PACKET PO PRN (14:20)
[2024-03-24] MEDS: ACETAMINOPHEN TAB 650MG DOSE (2X325MG) PO PRN (14:59)
[2024-03-24 15:33] LABS: HEPATITIS B SURFACE ANTIGEN NEGATIVE (NEGATIVE)
[2024-03-24 15:45] VITALS: BP 138/65; TEMP 99.5; O2SAT 96
[2024-03-24 15:54] LABS: HEPATITIS B CORE ANTIBODY IGM NEGATIVE (NEGATIVE)
[2024-03-24 15:55] LABS: HEPATITIS C VIRUS ABY INDEX 0.17 INDEX (<0.8)
[2024-03-24] MEDS: DOXYCYCLINE HYCLATE 100 MG in D5W MINI-BAG PLUS 100 ML IV SCH (17:24)
[2024-03-24] MEDS: PIPERACILLIN/TAZOBACTAM SOD 4.5 GM in D5W MINI-BAG PLUS 50 ML IV SCH (17:24)
[2024-03-24] MEDS: LACTOBACILLUS ACIDOPHILUS CAP (BACID) PO SCH (17:24)
[2024-03-24] MEDS: GABAPENTIN 300 MG CAP PO SCH ×2 (17:24→21:05)
[2024-03-24] MEDS: NS 1,000 ML IV SCH (17:24)
[2024-03-24 19:00] VITALS: BP 109/62; TEMP 98.1; O2SAT 98
[2024-03-24] MEDS: predniSONE 5 MG TAB PO SCH (21:04)
[2024-03-24] MEDS: CYANOCOBALAMIN 500 MCG TAB PO SCH (21:04)
[2024-03-24] MEDS: AMITRIPTYLINE 10MG TABLET PO SCH (21:04)
[2024-03-24] MEDS: MAGNESIUM OXIDE 400MG TAB (MAG-OX) PO SCH (21:04)
[2024-03-24] MEDS: TAMSULOSIN 0.4 MG CAP PO SCH (21:04)
[2024-03-24] MEDS: DOCUSATE SODIUM 100MG CAPSULE PO SCH (21:06)
[2024-03-24] MEDS: METOPROLOL TART 25 MG TABLET PO SCH (21:06)
[2024-03-24] MEDS: guaiFENesin ER TABLET 600 MG TAB PO SCH (21:06)
[2024-03-24] MEDS: FLUTICASONE PROP 0.05% NASAL SPRAY 16 GM (FLONASE) NARES SCH (21:07)
[2024-03-24] MEDS: RAMELTEON 8 MG TAB (ROZEREM) PO SCH (21:07)
[2024-03-24 23:08] VITALS: O2SAT 94
[2024-03-24 23:55] VITALS: BP 107/56; TEMP 98; O2SAT 92
[2024-03-25 03:35] VITALS: BP 100/55; TEMP 97.1; O2SAT 94
[2024-03-25] MEDS: LEVOTHYROXINE 50MCG TABLET (0.05MG) PO SCH (05:08)
[2024-03-25 06:31] LABS: BASO # 0.1 10^3/uL (0.0-0.2); BASO % 0.6 % (0.0-1.0); EOS # 0.1 10^3/uL (0.0-0.5); EOS % 0.6 % (0.0-3.0); HEMATOCRIT 28.9 % (42.0-52.0); HEMOGLOBIN 9.5 g/dl (13.5-17.5); LYMPH # 1.6 10^3/uL (1.5-5.0); LYMPH % 8.3 % (24.0-44.0); MEAN CORPUSCULAR HEMOGLOBIN 34.7 pg (27.0-33.0); MEAN CORPUSCULAR HGB CONC 32.9 g/dl (32.0-36.5); MEAN CORPUSCULAR VOLUME 105.5 fl (80.0-96.0); MONO % 34.9 % (2.0-8.0); NEUTROPHILS # 9.9 10^3/uL (1.5-8.5); NEUTROPHILS % 51.2 % (36.0-66.0); RED BLOOD COUNT 2.74 10^6/uL (4.30-6.10); WHITE BLOOD COUNT 19.3 10^3/uL (4.0-10.0)
[2024-03-25 06:42] LABS: ALBUMIN 2.5 G/DL (3.2-5.2); ALKALINE PHOSPHATASE 79 U/L (46-116); ALT/SGPT 50 U/L (7.0-40); AST/SGOT 31 U/L (<34); BILIRUBIN,TOTAL 0.8 MG/DL (0.3-1.2); BLOOD UREA NITROGEN 24 MG/DL (9-23); CALCIUM LEVEL 7.3 MG/DL (8.3-10.6); CARBON DIOXIDE LEVEL 28 MMOL/L (20-31); CHLORIDE LEVEL 105 MMOL/L (98-107); CREATININE FOR GFR 1.62 MG/DL (0.70-1.30); GLOMERULAR FILTRATION RATE 43.2 (>35); GLUCOSE, FASTING 96 MG/DL (74-106); MAGNESIUM LEVEL 2.1 MG/DL (1.8-2.4); POTASSIUM SERUM 3.7 MMOL/L (3.5-5.1); SODIUM LEVEL 138 MMOL/L (136-145); TOTAL PROTEIN 4.9 G/DL (5.7-8.2)
[2024-03-25 06:48] LABS: MONO # 6.7 10^3/uL (0.0-0.8)
[2024-03-25 07:58] VITALS: BP 111/63; TEMP 98; O2SAT 94
[2024-03-25 08:14] LABS: IMMUNOGLOBULIN G 954 MG/DL (650-1600)
[2024-03-25 08:17] LABS: IMMUNOGLOBULIN E 1401.7 IU/ML (0-378)
[2024-03-25 08:25] LABS: IMMUNOGLOBULIN A 524.7 MG/DL (40-350)
[2024-03-25] MEDS: FOLIC ACID 1MG TAB PO SCH (09:06)
[2024-03-25] MEDS: PANTOPRAZOLE 40MG TAB (PROTONIX) PO SCH (09:06)
[2024-03-25] MEDS: VITAMIN D 1,000 INTERNATIONAL UNITS TABLET PO SCH (09:06)
[2024-03-25] MEDS: AZELASTINE 137MCG NASAL SPY 30 ML (ASTELIN) SCH (09:07)
[2024-03-25] MEDS: ASPIRIN 81MG ENTERIC TABLET PO SCH (09:07)
[2024-03-25 16:05] VITALS: BP 117/62; TEMP 97.8; O2SAT 95
[2024-03-25] MEDS: CEPHALEXIN 500 MG CAP PO SCH (18:23)
[2024-03-25 19:00] VITALS: BP 112/64; TEMP 97.8; O2SAT 97
[2024-03-25 21:22] VITALS: BP 112/64
[2024-03-26] VITALS: BP 113/63; TEMP 97.2; O2SAT 95
[2024-03-26 03:23] VITALS: BP 108/61; TEMP 97.5; O2SAT 97
[2024-03-26 05:27] LABS: HEMATOCRIT 29.6 % (42.0-52.0); HEMOGLOBIN 9.8 g/dl (13.5-17.5); MEAN CORPUSCULAR HGB CONC 33.1 g/dl (32.0-36.5); MEAN CORPUSCULAR VOLUME 105.7 fl (80.0-96.0); WHITE BLOOD COUNT 14.2 10^3/uL (4.0-10.0)
[2024-03-26 05:52] LABS: C REACTIVE PROTEIN QUANTITATIV 6.1 MG/DL (<1.0)
[2024-03-26 05:57] LABS: ALBUMIN 2.6 G/DL (3.2-5.2); BILIRUBIN,TOTAL 0.6 MG/DL (0.3-1.2); CALCIUM LEVEL 8.2 MG/DL (8.3-10.6); CREATININE FOR GFR 1.55 MG/DL (0.70-1.30); GLOMERULAR FILTRATION RATE 45.5 (>35); MAGNESIUM LEVEL 2.1 MG/DL (1.8-2.4); POTASSIUM SERUM 3.7 MMOL/L (3.5-5.1); TOTAL PROTEIN 5.7 G/DL (5.7-8.2)
[2024-03-26 06:03] LABS: BASOPHILS 2 % (0-1); EOSINOPHILS 1 % (0-3); LYMPHOCYTES 20 % (16-44); MONOCYTES 20 % (0-5); NEUTROPHILS 55 % (28-66)
[2024-03-26 06:05] LABS: ANISOCYTOSIS 4+
[2024-03-26 06:07] LABS: TARGET CELLS 1+
[2024-03-26 06:28] VITALS: BP 128/66; TEMP 97.9; O2SAT 98
[2024-03-26] MEDS ORDERED: DOXY-259 PO (10:38)
[2024-03-26] MEDS ORDERED: DOXY100C3 PO (12:07)
[2024-03-28 18:27] LABS: LYME TOTAL ANTIBODY CIA <= 0.90 Index (<=0.90)
== END 2024-03-26 13:04 | disposition home or self-care (01) | DRG 872 ==
LOC: M ED 10:11 → M ED INP 13:46 → M PCU 15:28
PROVIDERS: ADMIT Internal Medicine; ATTEND Internal Medicine
DX: A41.9 Sepsis, unspecified organism (principal); I13.0 Hypertensive heart and chronic kidney disease with heart failure and stage 1 through stage 4 chronic kidney disease, or unspecified chronic kidney disease; I50.32 Chronic diastolic (congestive) heart failure; Z66 Do not resuscitate; I48.0 Paroxysmal atrial fibrillation; G47.33 Obstructive sleep apnea (adult) (pediatric); E03.9 Hypothyroidism, unspecified; N18.30 Chronic kidney disease, stage 3 unspecified; D64.9 Anemia, unspecified; G62.9 Polyneuropathy, unspecified; M19.90 Unspecified osteoarthritis, unspecified site; M21.371 Foot drop, right foot; N40.1 Benign prostatic hyperplasia with lower urinary tract symptoms; I89.0 Lymphedema, not elsewhere classified; K21.9 Gastro-esophageal reflux disease without esophagitis; K59.00 Constipation, unspecified; D69.6 Thrombocytopenia, unspecified; E78.5 Hyperlipidemia, unspecified; G60.0 Hereditary motor and sensory neuropathy; Z98.41 Cataract extraction status, right eye; Z98.42 Cataract extraction status, left eye; Z90.49 Acquired absence of other specified parts of digestive tract; Z79.82 Long term (current) use of aspirin; Z79.890 Hormone replacement therapy; Z79.52 Long term (current) use of systemic steroids; Z79.899 Other long term (current) drug therapy; Z11.52 Encounter for screening for COVID-19

== ENCOUNTER 2024-04-25 22:58 | Inpatient (IN) | payer MEDICARE, BC ==
[~2024-04-25] VITALS: Ht 180.3 cm; Wt 90.2 kg
[~2024-04-25 22:58] MED LIST changes: +CEPH500C PO; +DOXY-259 PO; +DOXY100C3 PO; +PIPE3.3729 IV; +POLY17PO18 PO; +POTA99CA2 PO; +RA M500C PO; +TURM500T PO; -ZOSY1SOL5 IV
[2024-04-25] MEDS: IBUPROFEN 600MG TAB PO ONE (23:36)
[2024-04-25] MEDS: ACETAMINOPHEN TAB 650MG DOSE (2X325MG) PO ONE (23:36)
[2024-04-25] MEDS: NS 2,730 ML in IV 1 EA IV ONE (23:37)
[2024-04-26] VITALS (34 sets, daily range): BP systolic 102–129; BP diastolic 56–65; TEMP 97.9–98.9; O2SAT 92–98
[2024-04-26 00:09] LABS: HEMATOCRIT 33.2 % (42.0-52.0); HEMOGLOBIN 11.1 g/dl (13.5-17.5); MEAN CORPUSCULAR HEMOGLOBIN 34.8 pg (27.0-33.0); MEAN CORPUSCULAR HGB CONC 33.4 g/dl (32.0-36.5); MEAN CORPUSCULAR VOLUME 104.1 fl (80.0-96.0); RED BLOOD COUNT 3.19 10^6/uL (4.30-6.10)
[2024-04-26 00:17] LABS: PROCALCITONIN 0.62 ng/ml
[2024-04-26 00:18] LABS: ALBUMIN 3.5 G/DL (3.2-5.2); BILIRUBIN,DIRECT 0.3 MG/DL (<0.4); BILIRUBIN,TOTAL 0.9 MG/DL (0.3-1.2); CALCIUM LEVEL 8.4 MG/DL (8.3-10.6); CREATININE FOR GFR 1.67 MG/DL (0.70-1.30); GLOMERULAR FILTRATION RATE 41.7 (>35); POTASSIUM SERUM 5.8 MMOL/L (3.5-5.1); TOTAL PROTEIN 7.9 G/DL (5.7-8.2)
[2024-04-26 00:21] LABS: INR 1.27; PARTIAL THROMBOPLASTIN TIME 33.8 SECONDS (24.8-34.2); PROTHROMBIN TIME 15.5 SECONDS (12.5-14.5)
[2024-04-26] MEDS ORDERED: ISOVUE-370 76% 100ML VIAL As Ordered ONE (00:39)
[2024-04-26 00:46] LABS: ATYPICAL LYMPH 1 % (0-5); BASOPHILS 3 % (0-1); EOSINOPHILS 7 % (0-3); LYMPHOCYTES 13 % (16-44); MONOCYTES 18 % (0-5); NEUTROPHILS 51 % (28-66)
[2024-04-26 00:47] LABS: ANISOCYTOSIS 4+; PLATELET CLUMPS MODERATE AMT; PLATELET ESTIMATE NORMAL (NORMAL)
[2024-04-26 00:50] LABS: POLYCHROMASIA 1+; TARGET CELLS 1+
[2024-04-26] MEDS: PIPERACILLIN/TAZOBACTAM SOD 4.5 GM in D5W MINI-BAG PLUS 50 ML IV ONE (00:58)
[2024-04-26] MEDS: LIDOCAINE 2% 5ML JELLY UROJET TOP ONE (02:50)
[2024-04-26] MEDS: NOREPINEPHRINE 4MG IN D5 250ML 4 MG in IV 1 EA IV SCH (03:15)
[2024-04-26] MEDS ORDERED: ACETAMINOPHEN TAB 650MG DOSE (2X325MG) PO PRN (04:15)
[2024-04-26] MEDS ORDERED: ONDANSETRON 4MG 2ML VIAL IV PRN (04:25)
[2024-04-26] MEDS ORDERED: HOME MED LIST COMPLETE! XX SCH (05:45)
[2024-04-26] MEDS ORDERED: PANT-23 PO (05:46)
[2024-04-26] MEDS: NS 1,000 ML IV SCH (05:56)
[2024-04-26] MEDS: NS 500 ML IV ONE (06:49)
[2024-04-26 07:44] LABS: HEMATOCRIT 28.8 % (42.0-52.0); HEMOGLOBIN 9.8 g/dl (13.5-17.5); MEAN CORPUSCULAR HEMOGLOBIN 35.5 pg (27.0-33.0); MEAN CORPUSCULAR VOLUME 104.3 fl (80.0-96.0); RED BLOOD COUNT 2.76 10^6/uL (4.30-6.10); WHITE BLOOD COUNT 23.6 10^3/uL (4.0-10.0)
[2024-04-26 07:46] LABS: PLATELET COUNT, AUTOMATED 91 10^3/uL (150-450)
[2024-04-26 08:24] LABS: ALBUMIN 2.6 G/DL (3.2-5.2); BILIRUBIN,TOTAL 0.8 MG/DL (0.3-1.2); CALCIUM LEVEL 7.3 MG/DL (8.3-10.6); CREATININE FOR GFR 1.69 MG/DL (0.70-1.30); GLOMERULAR FILTRATION RATE 41.2 (>35); MAGNESIUM LEVEL 2.3 MG/DL (1.8-2.4); POTASSIUM SERUM 3.4 MMOL/L (3.5-5.1); PROCALCITONIN 0.66 ng/ml; TOTAL PROTEIN 5.9 G/DL (5.7-8.2)
[2024-04-26] MEDS: PANTOPRAZOLE 40MG TAB (PROTONIX) PO SCH (09:24)
[2024-04-26] MEDS: PIPERACILLIN/TAZOBACTAM SOD 3.375 GM in D5W MINI-BAG PLUS 50 ML IV SCH (09:25)
[2024-04-26] MEDS: POTASSIUM CHLORIDE 10MEQ SR TABLET PO ONE ×2 (14:49→17:54)
[2024-04-26 17:54] LABS: HIV 1&2 SCREEN NEGATIVE (NEGATIVE)
[2024-04-26] MEDS: PIPERACILLIN/TAZOBACTAM SOD 4.5 GM in D5W MINI-BAG PLUS 50 ML IV SCH (17:54)
[2024-04-26] MEDS: FLUTICASONE PROP 0.05% NASAL SPRAY 16 GM (FLONASE) NARES SCH (19:59)
[2024-04-26] MEDS: AZELASTINE 137MCG NASAL SPY 30 ML (ASTELIN) SCH (20:00)
[2024-04-26] MEDS: ENOXAPARIN 30MG/0.3ML SYRINGE (J1650 PER 10MG) SC SCH (20:00)
[2024-04-26] MEDS: guaiFENesin ER TABLET 600 MG TAB PO SCH (20:01)
[2024-04-26] MEDS: DOCUSATE SODIUM 100MG CAPSULE PO SCH (20:01)
[2024-04-26] MEDS: AMITRIPTYLINE 10MG TABLET PO SCH (20:01)
[2024-04-26] MEDS: TAMSULOSIN 0.4 MG CAP PO SCH (20:01)
[2024-04-26] MEDS: GABAPENTIN 400MG CAP PO SCH (20:01)
[2024-04-26] MEDS ORDERED: ENOXAPARIN 40MG/0.4ML SYRINGE (J1650 PER 10MG) SC SCH (21:00)
[2024-04-27] VITALS (11 sets, daily range): BP systolic 107–138; BP diastolic 56–71; PULSE 71; TEMP 97.8–98.8; O2SAT 93–98
[2024-04-27 06:28] LABS: HEMATOCRIT 29.6 % (42.0-52.0); HEMOGLOBIN 9.6 g/dl (13.5-17.5); MEAN CORPUSCULAR HEMOGLOBIN 34.8 pg (27.0-33.0); MEAN CORPUSCULAR HGB CONC 32.4 g/dl (32.0-36.5); MEAN CORPUSCULAR VOLUME 107.2 fl (80.0-96.0); RED BLOOD COUNT 2.76 10^6/uL (4.30-6.10)
[2024-04-27 06:30] LABS: PLATELET COUNT, AUTOMATED 74 10^3/uL (150-450)
[2024-04-27 06:46] LABS: CALCIUM LEVEL 7.5 MG/DL (8.3-10.6); CREATININE FOR GFR 1.7 MG/DL (0.70-1.30); GLOMERULAR FILTRATION RATE 40.9 (>35); POTASSIUM SERUM 4.5 MMOL/L (3.5-5.1)
[2024-04-27 07:02] LABS: ATYPICAL LYMPH 2 % (0-5); BASOPHILS 1 % (0-1); EOSINOPHILS 10 % (0-3); LYMPHOCYTES 14 % (16-44); MONOCYTES 21 % (0-5); MYELOCYTES 2 % (0-0); NEUTROPHILS 50 % (28-66); PLATELET ESTIMATE DECREASED (NORMAL)
[2024-04-27 07:03] LABS: ANISOCYTOSIS 2+; POIKILOCYTOSIS 1+; POLYCHROMASIA 2+; TARGET CELLS 1+
[2024-04-27] MEDS: ASCORBIC ACID 500 MG TAB PO SCH (08:24)
[2024-04-27] MEDS: ASPIRIN 81MG ENTERIC TABLET PO SCH (08:24)
[2024-04-27] MEDS: LEVOTHYROXINE 50MCG TABLET (0.05MG) PO SCH (08:24)
[2024-04-27] MEDS: SODIUM CHLORIDE NASAL 0.65% SPRAY BTL (OCEAN) SCH (20:14)
[2024-04-27] MEDS: CETIRIZINE (ZyrTEC) 10 MG TAB PO SCH (20:15)
[2024-04-27] MEDS: RAMELTEON 8 MG TAB (ROZEREM) PO PRN (20:22)
[2024-04-27] MEDS ORDERED: DICYCLOMINE 10 MG CAP PO PRN (21:25)
[2024-04-28 04:08] VITALS: BP 123/72; TEMP 98.1; O2SAT 97
[2024-04-28 07:27] LABS: BASO # 0.2 10^3/uL (0.0-0.2); BASO % 1.5 % (0.0-1.0); EOS # 1.8 10^3/uL (0.0-0.5); EOS % 12.1 % (0.0-3.0); HEMATOCRIT 27.6 % (42.0-52.0); LYMPH # 2.3 10^3/uL (1.5-5.0); LYMPH % 15.7 % (24.0-44.0); MEAN CORPUSCULAR HEMOGLOBIN 34.4 pg (27.0-33.0); MEAN CORPUSCULAR HGB CONC 32.6 g/dl (32.0-36.5); MEAN CORPUSCULAR VOLUME 105.3 fl (80.0-96.0); MONO % 27.7 % (2.0-8.0); NEUTROPHILS # 4.7 10^3/uL (1.5-8.5); RED BLOOD COUNT 2.62 10^6/uL (4.30-6.10); WHITE BLOOD COUNT 14.6 10^3/uL (4.0-10.0)
[2024-04-28 07:45] LABS: MONO # 4.1 10^3/uL (0.0-0.8)
[2024-04-28 07:51] LABS: CALCIUM LEVEL 7.6 MG/DL (8.3-10.6); CREATININE FOR GFR 1.57 MG/DL (0.70-1.30); GLOMERULAR FILTRATION RATE 44.8 (>35); POTASSIUM SERUM 4.2 MMOL/L (3.5-5.1)
[2024-04-28 08:00] VITALS: BP 118/70; TEMP 97.9; O2SAT 92
[2024-04-28] MEDS: MIRALAX *UNIT DOSE* 17GM PACKET PO SCH (08:00)
[2024-04-28 12:00] VITALS: BP 117/70; TEMP 98.1; O2SAT 96
[2024-04-28 16:00] VITALS: BP 116/69; TEMP 97.9; O2SAT 94
[2024-04-28] MEDS ORDERED: CEFD300CAP PO (17:18)
[2024-04-28] MEDS ORDERED: METO1TAB87 PO (17:18)
[2024-04-28] MEDS ORDERED: CEFDINIR 300 MG CAP (OMNICEF) PO SCH (21:00)
[2024-04-28] MEDS ORDERED: METOPROLOL SUCC *XL* 12.5MG PER 1/2 TAB (TopROL *XL*) PO SCH (21:00)
== END 2024-04-28 18:20 | disposition home or self-care (01) | DRG 871 ==
LOC: M ED 22:58 → M ED INP 04-26 04:14 → M ICU 04-26 10:10 → M MS5PR 04-27 11:49
PROVIDERS: ADMIT Preventive Medicine Undersea and Hyperbaric Medicine; ATTEND Internal Medicine
PROC: B246ZZZ Ultrasonography of Right and Left Heart (ICD-10-PCS; principal; 2024-04-27)
DX: A41.9 Sepsis, unspecified organism (principal); R65.21 Severe sepsis with septic shock; I50.32 Chronic diastolic (congestive) heart failure; I13.0 Hypertensive heart and chronic kidney disease with heart failure and stage 1 through stage 4 chronic kidney disease, or unspecified chronic kidney disease; N17.9 Acute kidney failure, unspecified; J98.11 Atelectasis; I48.0 Paroxysmal atrial fibrillation; G47.33 Obstructive sleep apnea (adult) (pediatric); E03.9 Hypothyroidism, unspecified; N18.30 Chronic kidney disease, stage 3 unspecified; D64.9 Anemia, unspecified; G62.9 Polyneuropathy, unspecified; G60.0 Hereditary motor and sensory neuropathy; M19.90 Unspecified osteoarthritis, unspecified site; M35.3 Polymyalgia rheumatica; M21.371 Foot drop, right foot; I89.0 Lymphedema, not elsewhere classified; R31.9 Hematuria, unspecified; E87.6 Hypokalemia; G47.00 Insomnia, unspecified; I27.20 Pulmonary hypertension, unspecified; D47.2 Monoclonal gammopathy; I36.1 Nonrheumatic tricuspid (valve) insufficiency; D69.59 Other secondary thrombocytopenia; N40.0 Benign prostatic hyperplasia without lower urinary tract symptoms; K21.9 Gastro-esophageal reflux disease without esophagitis; Z11.52 Encounter for screening for COVID-19; Z79.82 Long term (current) use of aspirin; Z79.890 Hormone replacement therapy; Z79.52 Long term (current) use of systemic steroids; Z79.899 Other long term (current) drug therapy

== ENCOUNTER → 2024-05-06 | Outpatient (CLI) | payer MEDICARE, BC ==
[~2024-05-06] MED LIST changes: +CEFD300CAP PO; +PANT-23 PO
[2024-05-06 18:51] LABS: ALBUMIN 3.2 G/DL (3.2-5.2); BILIRUBIN,TOTAL 0.5 MG/DL (0.3-1.2); CALCIUM LEVEL 8.7 MG/DL (8.3-10.6); CREATININE FOR GFR 1.52 MG/DL (0.70-1.30); GLOMERULAR FILTRATION RATE 46.5 (>35); POTASSIUM SERUM 3.9 MMOL/L (3.5-5.1); TOTAL PROTEIN 7.5 G/DL (5.7-8.2)
[2024-05-06 19:01] LABS: HEMATOCRIT 32.8 % (42.0-52.0); HEMOGLOBIN 10.3 g/dl (13.5-17.5); MEAN CORPUSCULAR HEMOGLOBIN 33.8 pg (27.0-33.0); MEAN CORPUSCULAR HGB CONC 31.4 g/dl (32.0-36.5); MEAN CORPUSCULAR VOLUME 107.5 fl (80.0-96.0); RED BLOOD COUNT 3.05 10^6/uL (4.30-6.10)
[2024-05-07 06:37] LABS: WHITE BLOOD COUNT 16.2 10^3/uL (4.0-10.0)
== END ==
LOC: M WUC 12:23
PROVIDERS: ATTEND Physician Assistant
DX: A41.9 Sepsis, unspecified organism (principal)

== ENCOUNTER → 2024-05-22 | Outpatient (CLI) | payer MEDICARE, BC ==
[2024-05-22 17:52] LABS: HEMATOCRIT 29.2 % (42.0-52.0); HEMOGLOBIN 9.6 g/dl (13.5-17.5); MEAN CORPUSCULAR HEMOGLOBIN 34.7 pg (27.0-33.0); MEAN CORPUSCULAR HGB CONC 32.9 g/dl (32.0-36.5); MEAN CORPUSCULAR VOLUME 105.4 fl (80.0-96.0); RED BLOOD COUNT 2.77 10^6/uL (4.30-6.10); WHITE BLOOD COUNT 13.1 10^3/uL (4.0-10.0)
[2024-05-22 18:15] LABS: PLATELET COUNT, AUTOMATED 83 10^3/uL (150-450)
[2024-05-22 18:48] LABS: ATYPICAL LYMPH 1 % (0-5); BASOPHILS 1 % (0-1); EOSINOPHILS 3 % (0-3); LYMPHOCYTES 15 % (16-44); METAMYELOCYTES 1 % (0-0); MONOCYTES 25 % (0-5); MYELOCYTES 2 % (0-0); NEUTROPHILS 50 % (28-66)
[2024-05-22 18:50] LABS: ANISOCYTOSIS 4+; POIKILOCYTOSIS 2+
[2024-05-22 18:51] LABS: SCHISTOCYTES 1+; TEAR DROP CELLS 1+
[2024-05-22 18:52] LABS: HELMET CELLS 1+
[2024-05-22 18:54] LABS: PLATELET CLUMPS MODERATE AMT; PLATELET ESTIMATE DECREASED (NORMAL)
[2024-05-22 19:28] LABS: ERYTHROCYTE SEDIMENTATION RATE 123 mm/hr (0-20)
== END ==
LOC: M PLALAB 15:21
PROVIDERS: ATTEND Physician Assistant
DX: M25.431 Effusion, right wrist (principal); R05.3 Chronic cough; R91.8 Other nonspecific abnormal finding of lung field

== ENCOUNTER → 2024-06-10 | Outpatient (CLI) | payer MEDICARE, BC ==
[~2024-06-10] MED LIST changes: +GABA-1490 PO; -GABA600T4 PO
[2024-06-10 16:03] LABS: HEMATOCRIT 30.3 % (42.0-52.0); MEAN CORPUSCULAR HEMOGLOBIN 34.7 pg (27.0-33.0); MEAN CORPUSCULAR VOLUME 105.2 fl (80.0-96.0); RED BLOOD COUNT 2.88 10^6/uL (4.30-6.10); WHITE BLOOD COUNT 15.2 10^3/uL (4.0-10.0)
[2024-06-10 16:13] LABS: ERYTHROCYTE SEDIMENTATION RATE 73 mm/hr (0-20)
[2024-06-10 16:36] LABS: ATYPICAL LYMPH 2 % (0-5); LYMPHOCYTES 4 % (16-44); MONOCYTES 28 % (0-5); NEUTROPHILS 65 % (28-66)
[2024-06-10 16:37] LABS: PLATELET ESTIMATE INVALID (NORMAL)
[2024-06-10 16:38] LABS: ANISOCYTOSIS 4+; HYPOCHROMASIA 1+
[2024-06-10 16:40] LABS: MICROCYTOSIS 1+
[2024-06-10 16:41] LABS: ALBUMIN 2.8 G/DL (3.2-5.2); ALKALINE PHOSPHATASE 72 U/L (46-116); ALT/SGPT 20 U/L (7.0-40); AST/SGOT 16 U/L (<34); BILIRUBIN,TOTAL 0.4 MG/DL (0.3-1.2); BLOOD UREA NITROGEN 35 MG/DL (9-23); CALCIUM LEVEL 8.1 MG/DL (8.3-10.6); CARBON DIOXIDE LEVEL 29 MMOL/L (20-31); CHLORIDE LEVEL 107 MMOL/L (98-107); GLOMERULAR FILTRATION RATE > 60.0 (>35); GLUCOSE, FASTING 90 MG/DL (74-106); POTASSIUM SERUM 4.1 MMOL/L (3.5-5.1); SODIUM LEVEL 140 MMOL/L (136-145); TOTAL PROTEIN 6.4 G/DL (5.7-8.2)
== END ==
LOC: M PLALAB 13:17
PROVIDERS: ATTEND Internal Medicine Infectious Disease
DX: J18.9 Pneumonia, unspecified organism (principal)

== ENCOUNTER → 2024-06-10 | Outpatient (CLI) | payer MEDICARE, BC | LOC: M PLAIMG 13:21 | PROVIDERS: ATTEND Internal Medicine Gastroenterology | DX: R10.30 Lower abdominal pain, unspecified (principal); K59.00 Constipation, unspecified; K44.9 Diaphragmatic hernia without obstruction or gangrene; K29.70 Gastritis, unspecified, without bleeding; J18.9 Pneumonia, unspecified organism ==

== ENCOUNTER → 2024-07-01 | Outpatient (CLI) | payer MEDICARE, BC | LOC: M WUC 14:28 | PROVIDERS: ATTEND Physician Assistant | DX: R05.3 Chronic cough (principal); R53.83 Other fatigue ==

== ENCOUNTER → 2024-07-21 | Outpatient (CLI) | payer MEDICARE, BC ==
[2024-07-21 18:18] LABS: HEMATOCRIT 34.7 % (42.0-52.0); HEMOGLOBIN 10.9 g/dl (13.5-17.5); MEAN CORPUSCULAR HEMOGLOBIN 33.4 pg (27.0-33.0); MEAN CORPUSCULAR HGB CONC 31.4 g/dl (32.0-36.5); MEAN CORPUSCULAR VOLUME 106.4 fl (80.0-96.0); RED BLOOD COUNT 3.26 10^6/uL (4.30-6.10); WHITE BLOOD COUNT 16.3 10^3/uL (4.0-10.0)
[2024-07-21 18:44] LABS: PROSTATIC SPECIFIC AG MONITOR 0.11 NG/ML (< 4.00)
[2024-07-21 18:47] LABS: ALBUMIN 3.1 G/DL (3.2-5.2); BILIRUBIN,TOTAL 0.4 MG/DL (0.3-1.2); CALCIUM LEVEL 8.9 MG/DL (8.3-10.6); CREATININE FOR GFR 1.67 MG/DL (0.70-1.30); GLOMERULAR FILTRATION RATE 41.6 (>35); POTASSIUM SERUM 4.1 MMOL/L (3.5-5.1); TOTAL PROTEIN 7.5 G/DL (5.7-8.2)
== END ==
LOC: M WUC 11:10
PROVIDERS: ATTEND Nurse Practitioner Family
DX: E29.1 Testicular hypofunction (principal); R97.20 Elevated prostate specific antigen [PSA]

== ENCOUNTER → 2024-07-28 | Outpatient (CLI) | payer MEDICARE, BC ==
[2024-07-28 15:11] LABS: HEMATOCRIT 31.5 % (42.0-52.0); HEMOGLOBIN 10.2 g/dl (13.5-17.5); MEAN CORPUSCULAR HEMOGLOBIN 33.7 pg (27.0-33.0); MEAN CORPUSCULAR HGB CONC 32.4 g/dl (32.0-36.5); RED BLOOD COUNT 3.03 10^6/uL (4.30-6.10); WHITE BLOOD COUNT 18.9 10^3/uL (4.0-10.0)
[2024-07-28 15:36] LABS: ATYPICAL LYMPH 5 % (0-5); EOSINOPHILS 4 % (0-3); LYMPHOCYTES 12 % (16-44); METAMYELOCYTES 1 % (0-0); MONOCYTES 29 % (0-5); NEUTROPHILS 42 % (28-66)
[2024-07-28 15:37] LABS: ANISOCYTOSIS 4+
[2024-07-28 15:38] LABS: HYPOCHROMASIA 1+
[2024-07-28 15:39] LABS: PLATELET ESTIMATE INVALID (NORMAL); TARGET CELLS 1+
[2024-07-28 15:46] LABS: ERYTHROCYTE SEDIMENTATION RATE 71 mm/hr (0-20)
== END ==
LOC: M PLALAB 13:40
PROVIDERS: ATTEND Internal Medicine Infectious Disease
DX: R50.9 Fever, unspecified (principal)

== ENCOUNTER → 2024-09-22 | Outpatient (CLI) | payer MEDICARE, BC | LOC: M PLARAD 09:00 | PROVIDERS: ATTEND Internal Medicine | DX: D64.9 Anemia, unspecified (principal); D47.2 Monoclonal gammopathy; R77.9 Abnormality of plasma protein, unspecified | CPT/HCPCS: 78815; A9552 ==

== ENCOUNTER → 2024-11-26 | Outpatient (REF) | payer MEDICARE, BC ==
[2024-11-26 14:32] LABS: BASO # 0.3 10^3/uL (0.0-0.2); BASO % 1.1 % (0.0-1.0); EOS # 0.3 10^3/uL (0.0-0.5); EOS % 1.3 % (0.0-3.0); HEMATOCRIT 34.9 % (42.0-52.0); HEMOGLOBIN 10.8 g/dl (13.5-17.5); LYMPH # 2.5 10^3/uL (1.5-5.0); LYMPH % 11.2 % (24.0-44.0); MEAN CORPUSCULAR HEMOGLOBIN 32.5 pg (27.0-33.0); MEAN CORPUSCULAR HGB CONC 30.9 g/dl (32.0-36.5); MEAN CORPUSCULAR VOLUME 105.1 fl (80.0-96.0); MONO % 30.7 % (2.0-8.0); NEUTROPHILS # 9.5 10^3/uL (1.5-8.5); NEUTROPHILS % 42.2 % (36.0-66.0); RED BLOOD COUNT 3.32 10^6/uL (4.30-6.10); WHITE BLOOD COUNT 22.5 10^3/uL (4.0-10.0)
[2024-11-26 15:09] LABS: MONO # 6.9 10^3/uL (0.0-0.8)
== END ==
LOC: M LABWUC 13:08
PROVIDERS: ATTEND Internal Medicine
DX: D46.9 Myelodysplastic syndrome, unspecified (principal); D47.2 Monoclonal gammopathy; C88.00 Waldenstrom macroglobulinemia not having achieved remission

== ENCOUNTER → 2024-12-10 | Outpatient (CLI) | payer MEDICARE, BC ==
[2024-12-10 18:18] LABS: BASO # 0.1 10^3/uL (0.0-0.2); BASO % 0.4 % (0.0-1.0); EOS # 0.4 10^3/uL (0.0-0.5); EOS % 1.9 % (0.0-3.0); HEMATOCRIT 35.2 % (42.0-52.0); HEMOGLOBIN 10.8 g/dl (13.5-17.5); LYMPH # 2.3 10^3/uL (1.5-5.0); LYMPH % 11.1 % (24.0-44.0); MEAN CORPUSCULAR HEMOGLOBIN 32.7 pg (27.0-33.0); MEAN CORPUSCULAR HGB CONC 30.7 g/dl (32.0-36.5); MEAN CORPUSCULAR VOLUME 106.7 fl (80.0-96.0); NEUTROPHILS # 9.2 10^3/uL (1.5-8.5); NEUTROPHILS % 44.1 % (36.0-66.0); WHITE BLOOD COUNT 20.8 10^3/uL (4.0-10.0)
[2024-12-10 18:19] LABS: MONO # 7.3 10^3/uL (0.0-0.8)
[2024-12-10 18:22] LABS: PLTBLUE- EDTA FREE CALC 90 K/mm3 (172-450)
[2024-12-10 18:57] LABS: PLTBLUE- EDTA FREE MACHINE 82 10^3/uL (172-450)
[2024-12-10 18:58] LABS: PLATELET CHECK? YES (YES)
== END ==
LOC: M WUC 11:23
PROVIDERS: ATTEND Physician Assistant
DX: R53.83 Other fatigue (principal); R53.1 Weakness; E03.9 Hypothyroidism, unspecified; M35.3 Polymyalgia rheumatica; D64.9 Anemia, unspecified

== ENCOUNTER → 2024-12-10 | Outpatient (REF) | payer MEDICARE, OTHER ==
[2024-12-10 17:45] LABS: HEMATOCRIT 35.7 % (42.0-52.0); MEAN CORPUSCULAR HEMOGLOBIN 32.6 pg (27.0-33.0); MEAN CORPUSCULAR HGB CONC 30.8 g/dl (32.0-36.5); MEAN CORPUSCULAR VOLUME 105.9 fl (80.0-96.0); RED BLOOD COUNT 3.37 10^6/uL (4.30-6.10); WHITE BLOOD COUNT 20.7 10^3/uL (4.0-10.0)
[2024-12-10 17:55] LABS: ALBUMIN 3.2 G/DL (3.2-5.2); ALKALINE PHOSPHATASE 33 U/L (40-129); ALT/SGPT 16 U/L (7.0-40); AST/SGOT 10 U/L (<34); BILIRUBIN,TOTAL 0.6 MG/DL (0.3-1.2); BLOOD UREA NITROGEN 46 MG/DL (9-23); C REACTIVE PROTEIN QUANTITATIV < 0.50 MG/DL (<1.0); CALCIUM LEVEL 8.3 MG/DL (8.3-10.6); CARBON DIOXIDE LEVEL 31 MMOL/L (20-31); CHLORIDE LEVEL 101 MMOL/L (98-107); GLOMERULAR FILTRATION RATE 38.2 (>35); GLUCOSE, FASTING 109 MG/DL (74-106); POTASSIUM SERUM 4.2 MMOL/L (3.5-5.1); SODIUM LEVEL 142 MMOL/L (136-145); TOTAL PROTEIN 7.1 G/DL (5.7-8.2)
[2024-12-10 17:56] LABS: ERYTHROCYTE SEDIMENTATION RATE 19 mm/hr (0-20)
[2024-12-10 17:58] LABS: THYROID STIMULATING HORMONE 4.077 uIU/ML (0.55-4.78)
== END ==
LOC: M LABWUC 14:28
PROVIDERS: ATTEND Physician Assistant
DX: R53.83 Other fatigue (principal); R53.1 Weakness; E03.9 Hypothyroidism, unspecified

== ENCOUNTER → 2024-12-24 | Outpatient (REF) | payer MEDICARE, OTHER, BC ==
[2024-12-24 14:19] LABS: BASO % 0.2 % (0.0-1.0); EOS # 0.1 10^3/uL (0.0-0.5); EOS % 0.9 % (0.0-3.0); HEMOGLOBIN 9.7 g/dl (13.5-17.5); LYMPH # 1.5 10^3/uL (1.5-5.0); LYMPH % 10.1 % (24.0-44.0); MEAN CORPUSCULAR HEMOGLOBIN 32.8 pg (27.0-33.0); MEAN CORPUSCULAR HGB CONC 31.3 g/dl (32.0-36.5); MEAN CORPUSCULAR VOLUME 104.7 fl (80.0-96.0); MONO % 22.8 % (2.0-8.0); NEUTROPHILS # 9.1 10^3/uL (1.5-8.5); NEUTROPHILS % 61.7 % (36.0-66.0); RED BLOOD COUNT 2.96 10^6/uL (4.30-6.10); WHITE BLOOD COUNT 14.7 10^3/uL (4.0-10.0)
[2024-12-24 14:53] LABS: PLTBLUE- EDTA FREE CALC 117 K/mm3 (172-450)
[2024-12-24 14:54] LABS: MONO # 3.4 10^3/uL (0.0-0.8); PLTBLUE- EDTA FREE MACHINE 106 10^3/uL (172-450)
[2024-12-24 14:58] LABS: PLATELET CHECK? YES (YES)
== END ==
LOC: M LABWUC 14:08
PROVIDERS: ATTEND Internal Medicine
DX: D64.9 Anemia, unspecified (principal); D47.2 Monoclonal gammopathy; D46.9 Myelodysplastic syndrome, unspecified; C88.00 Waldenstrom macroglobulinemia not having achieved remission

== ENCOUNTER 2025-01-02 19:54 | Inpatient (IN) | payer MEDICARE, BC ==
[~2025-01-02] VITALS: Ht 182.9 cm; Wt 82.4 kg
[2025-01-02 20:44] LABS: HEMATOCRIT 29.3 % (42.0-52.0); HEMOGLOBIN 9.4 g/dl (13.5-17.5); MEAN CORPUSCULAR HEMOGLOBIN 32.5 pg (27.0-33.0); MEAN CORPUSCULAR HGB CONC 32.1 g/dl (32.0-36.5); MEAN CORPUSCULAR VOLUME 101.4 fl (80.0-96.0); PLATELET COUNT, AUTOMATED 100 10^3/uL (150-450); RED BLOOD COUNT 2.89 10^6/uL (4.30-6.10)
[2025-01-02 20:47] LABS: WHITE BLOOD COUNT 30.7 10^3/uL (4.0-10.0)
[2025-01-02 21:01] LABS: APPEARANCE, URINE CLEAR (CLEAR); BACTERIA, URINE AUTO NEGATIVE (NEGATIVE); BILIRUBIN, URINE AUTO NEGATIVE (NEGATIVE); BLOOD, URINE BLOOD 1+ (NEGATIVE); COLOR, URINE YELLOW (YELLOW); GLUCOSE, URINE (UA) AUTO NEGATIVE (NEGATIVE); KETONE, URINE AUTO NEGATIVE (NEGATIVE); LEUKOCYTE ESTERASE, URINE AUTO TRACE (NEGATIVE); NITRITE, URINE AUTO NEGATIVE (NEGATIVE); PROTEIN, URINE AUTO NEGATIVE (NEGATIVE); RBC, URINE AUTO 5 /HPF (0-3); SPECIFIC GRAVITY URINE AUTO 1.012 (1.002-1.035); SQUAMOUS EPITHELIAL CELL UR AU 0 /HPF (0-6); UROBILINOGEN, URINE AUTO 0.2 mg/dL (0.0-2.0); WBC, URINE AUTO 6 /HPF (0-3)
[2025-01-02 21:09] LABS: AMYLASE 57 U/L (30-118)
[2025-01-02 21:10] LABS: ALBUMIN 2.6 G/DL (3.2-5.2); ALKALINE PHOSPHATASE 34 U/L (40-129); ALT/SGPT 10 U/L (7.0-40); AST/SGOT 17 U/L (<34); ATYPICAL LYMPH 5 % (0-5); BASOPHILS 2 % (0-1); BILIRUBIN,DIRECT 0.1 MG/DL (<0.4); BILIRUBIN,TOTAL 0.4 MG/DL (0.3-1.2); BLOOD UREA NITROGEN 66 MG/DL (9-23); CALCIUM LEVEL 7.7 MG/DL (8.3-10.6); CARBON DIOXIDE LEVEL 32 MMOL/L (20-31); CHLORIDE LEVEL 99 MMOL/L (98-107); CREATININE FOR GFR 2.22 MG/DL (0.70-1.30); EOSINOPHILS 2 % (0-3); GLUCOSE, FASTING 117 MG/DL (74-106); LYMPHOCYTES 9 % (16-44); MONOCYTES 22 % (0-5); NEUTROPHILS 59 % (28-66); PLATELET ESTIMATE DECREASED (NORMAL); POTASSIUM SERUM 4.5 MMOL/L (3.5-5.1); SODIUM LEVEL 137 MMOL/L (136-145); TOTAL PROTEIN 6.5 G/DL (5.7-8.2)
[2025-01-02 21:11] LABS: ANISOCYTOSIS 2+; POIKILOCYTOSIS 1+
[2025-01-02 21:13] LABS: OVALOCYTES 1+; TEAR DROP CELLS 1+
[2025-01-02 21:16] LABS: PROCALCITONIN 0.24 ng/ml
[2025-01-02 23:46] LABS: CK-MB VALUE MASS < 1.0 NG/ML (<3.6)
[2025-01-02 23:55] LABS: CPK CREATINE PHOSPHOKINASE 31 U/L (46-171); MB/CK RELATIVE INDEX 3.22 (< OR =4)
[2025-01-03] MEDS: FUROSEMIDE 40MG/4ML VIAL IV ONE (00:48)
[2025-01-03] MEDS ORDERED: VANCOMYCIN HCL 0 MG in IV FLUID PLACE HOLDER 1 EA IV SCH (03:05)
[2025-01-03] MEDS ORDERED: MOM 30ML SUSPENSION UDC PO PRN (03:05)
[2025-01-03 05:16] LABS: BASO # 0.1 10^3/uL (0.0-0.2); BASO % 0.5 % (0.0-1.0); EOS # 0.2 10^3/uL (0.0-0.5); EOS % 0.9 % (0.0-3.0); HEMATOCRIT 29.4 % (42.0-52.0); HEMOGLOBIN 9.5 g/dl (13.5-17.5); LYMPH # 2.9 10^3/uL (1.5-5.0); MEAN CORPUSCULAR HEMOGLOBIN 32.8 pg (27.0-33.0); MEAN CORPUSCULAR HGB CONC 32.3 g/dl (32.0-36.5); MEAN CORPUSCULAR VOLUME 101.4 fl (80.0-96.0); NEUTROPHILS # 11.2 10^3/uL (1.5-8.5); NEUTROPHILS % 41.9 % (36.0-66.0); PLATELET COUNT, AUTOMATED 102 10^3/uL (150-450); WHITE BLOOD COUNT 26.6 10^3/uL (4.0-10.0)
[2025-01-03 05:17] LABS: MONO # 8.5 10^3/uL (0.0-0.8)
[2025-01-03] MEDS: LEVOTHYROXINE 50MCG TABLET (0.05MG) PO SCH (05:24)
[2025-01-03] MEDS: VANCOMYCIN HCL 1,750 MG, VIAL MATE ADAPTER 1 EACH in NS 500 ML IV ONE (05:24)
[2025-01-03 05:39] LABS: IRON (FE) 21 UG/DL (65-175)
[2025-01-03 05:40] LABS: PERCENT SATURATION 10.7 % (19.7-50.0); TOTAL IRON BINDING CAPACITY 196 UG/DL (250-425)
[2025-01-03 05:41] LABS: ALBUMIN 2.6 G/DL (3.2-5.2); BILIRUBIN,TOTAL 0.6 MG/DL (0.3-1.2); CALCIUM LEVEL 8.3 MG/DL (8.3-10.6); CREATININE FOR GFR 2.12 MG/DL (0.70-1.30); FERRITIN 333.2 NG/ML (10.5-307.3); FOLATE > 24.00 NG/ML (>5.4); GLOMERULAR FILTRATION RATE 31.6 (>35); POTASSIUM SERUM 3.5 MMOL/L (3.5-5.1); TOTAL PROTEIN 6.5 G/DL (5.7-8.2); VITAMIN B12 LEVEL 1232 PG/ML (211-911)
[2025-01-03] MEDS ORDERED: BENE1POW7 PO (08:31)
[2025-01-03] MEDS ORDERED: PRED10TA2 PO (08:33)
[2025-01-03] MEDS ORDERED: MUPI2OI TOP (08:34)
[2025-01-03] MEDS: NS 500 ML IV ONE (08:40)
[2025-01-03] MEDS: NS (Normal Saline) 0.9% 1,000 ML IV SCH (08:40)
[2025-01-03] MEDS: PIPERACILLIN/TAZOBACTAM SOD 2.25 GM in DEXTROSE 5% (D5W) ADV/MINI-BAG 50 ML IV SCH (08:57)
[2025-01-03] MEDS: DOCUSATE SODIUM 100MG CAPSULE PO SCH (08:58)
[2025-01-03] MEDS: PANTOPRAZOLE 40MG TAB (PROTONIX) PO SCH (08:58)
[2025-01-03] MEDS: ENOXAPARIN 30MG/0.3ML SYRINGE (J1650 PER 10MG) SC SCH (08:58)
[2025-01-03] MEDS: predniSONE 5 MG TAB PO SCH (09:00)
[2025-01-03] MEDS ORDERED: CODE15TA PO (09:33)
[2025-01-03] MEDS ORDERED: PRED20TA PO (09:33)
[2025-01-03] MEDS ORDERED: HOME MED LIST COMPLETE! XX SCH (09:35)
[2025-01-03] MEDS ORDERED: DUPI300I SC (09:35)
[2025-01-03] MEDS ORDERED: PREDOPD OS (09:35)
[2025-01-03 10:15] LABS: ERYTHROCYTE SEDIMENTATION RATE 69 mm/hr (0-20)
[2025-01-03] MEDS: KCL 20MEQ in NS 1000ML 1,000 ML IV SCH (14:57)
[2025-01-03] MEDS ORDERED: LINEZOLID 600 MG in IV 1 EA IV SCH (15:10)
[2025-01-03] MEDS ORDERED: prednisoLONE ACET 1% OPHTH SUSP 5ML OS PRN (15:10)
[2025-01-03] MEDS ORDERED: NS (Normal Saline) 0.9% 1,000 ML IV SCH (15:15)
[2025-01-03 16:11] VITALS: BP 117/76; TEMP 98.9; O2SAT 96
[2025-01-03] MEDS: MUPIROCIN 2% OINT 22 GM TUBE TOP SCH (21:00)
[2025-01-03 21:30] VITALS: BP 122/74; TEMP 98.6; O2SAT 95
[2025-01-03] MEDS: GABAPENTIN 100 MG CAP PO SCH (21:58)
[2025-01-03] MEDS: TAMSULOSIN 0.4 MG CAP PO SCH (21:58)
[2025-01-03] MEDS: LINEZOLID 600MG TABLET (ZYVOX) PO SCH (23:14)
[2025-01-04 04:15] VITALS: BP_SYST 110; BP_SYST 117; BP_DIAS 68; BP_DIAS 72; TEMP 100.4; TEMP 98.8; O2SAT 91; O2SAT 94
[2025-01-04 05:16] LABS: HEMATOCRIT 26.6 % (42.0-52.0); HEMOGLOBIN 8.5 g/dl (13.5-17.5); MEAN CORPUSCULAR HEMOGLOBIN 32.8 pg (27.0-33.0); MEAN CORPUSCULAR VOLUME 102.7 fl (80.0-96.0); RED BLOOD COUNT 2.59 10^6/uL (4.30-6.10); WHITE BLOOD COUNT 27.3 10^3/uL (4.0-10.0)
[2025-01-04 05:23] LABS: PLATELET COUNT, AUTOMATED 84 10^3/uL (150-450)
[2025-01-04 05:45] LABS: CALCIUM LEVEL 7.1 MG/DL (8.3-10.6); CREATININE FOR GFR 1.87 MG/DL (0.70-1.30); GLOMERULAR FILTRATION RATE 36.5 (>35); MAGNESIUM LEVEL 2.1 MG/DL (1.8-2.4); POTASSIUM SERUM 3.9 MMOL/L (3.5-5.1)
[2025-01-04 05:50] LABS: ATYPICAL LYMPH 6 % (0-5); EOSINOPHILS 4 % (0-3); LYMPHOCYTES 10 % (16-44); MONOCYTES 26 % (0-5); NEUTROPHILS 53 % (28-66); PLATELET ESTIMATE DECREASED (NORMAL)
[2025-01-04 05:51] LABS: ANISOCYTOSIS 2+; POLYCHROMASIA 1+
[2025-01-04 05:52] LABS: OVALOCYTES 1+; POIKILOCYTOSIS 1+; TEAR DROP CELLS 1+
[2025-01-04 07:53] VITALS: BP 124/59; TEMP 101.1; O2SAT 92
[2025-01-04] MEDS ORDERED: VANCOMYCIN HCL 1,000 MG, VIAL MATE ADAPTER 1 EACH in NS 250 ML IV SCH (08:00)
[2025-01-04] MEDS: ACETAMINOPHEN 325 MG TAB PO PRN (08:23)
[2025-01-04] MEDS: HEPARIN SOD (PORCINE) 5000UNITS/ML 1ML VIAL/SYRINGE SC SCH (08:25)
[2025-01-04] MEDS: AZELASTINE 137MCG NASAL SPY 30 ML (ASTELIN) SCH (08:26)
[2025-01-04] MEDS: FERRIC CARBOXYMALTOSE INJ 750 MG, VIAL MATE ADAPTER 1 EACH in NS 100 ML IV ONE (13:37)
[2025-01-04 16:00] VITALS: BP 131/74; TEMP 98.8; O2SAT 96
[2025-01-04 19:45] VITALS: BP 126/71; TEMP 98.5; O2SAT 96
[2025-01-04] MEDS: diphenhydrAMINE 25MG CAP PO PRN (21:32)
[2025-01-05 01:00] VITALS: O2SAT 86
[2025-01-05 01:08] VITALS: O2SAT 90
[2025-01-05 04:15] VITALS: BP 135/73; TEMP 98.5; O2SAT 95
[2025-01-05 04:25] LABS: BASO # 0.1 10^3/uL (0.0-0.2); BASO % 0.3 % (0.0-1.0); EOS # 0.6 10^3/uL (0.0-0.5); EOS % 2.5 % (0.0-3.0); HEMATOCRIT 26.4 % (42.0-52.0); HEMOGLOBIN 8.2 g/dl (13.5-17.5); LYMPH % 8.7 % (24.0-44.0); MEAN CORPUSCULAR HEMOGLOBIN 32.3 pg (27.0-33.0); MEAN CORPUSCULAR HGB CONC 31.1 g/dl (32.0-36.5); MEAN CORPUSCULAR VOLUME 103.9 fl (80.0-96.0); MONO % 35.4 % (2.0-8.0); NEUTROPHILS # 8.6 10^3/uL (1.5-8.5); RED BLOOD COUNT 2.54 10^6/uL (4.30-6.10); WHITE BLOOD COUNT 23.2 10^3/uL (4.0-10.0)
[2025-01-05 04:29] LABS: MONO # 8.2 10^3/uL (0.0-0.8); PLATELET COUNT, AUTOMATED 76 10^3/uL (150-450)
[2025-01-05 04:48] LABS: CALCIUM LEVEL 7.5 MG/DL (8.3-10.6); CREATININE FOR GFR 1.68 MG/DL (0.70-1.30); GLOMERULAR FILTRATION RATE 41.4 (>35); MAGNESIUM LEVEL 2.3 MG/DL (1.8-2.4); POTASSIUM SERUM 3.6 MMOL/L (3.5-5.1)
[2025-01-05 07:34] VITALS: BP 125/69; TEMP 98.3; O2SAT 92
[2025-01-05] MEDS: POTASSIUM CHLORIDE 10MEQ SR TABLET PO SCH (09:57)
[2025-01-05 12:27] VITALS: BP 131/80; TEMP 98.4; O2SAT 98
[2025-01-05 19:49] VITALS: BP 148/74; TEMP 98.1; O2SAT 97
[2025-01-06] MEDS: MAALOX 30 ML SUSP *UDC PO PRN (01:13)
[2025-01-06 04:00] VITALS: BP 135/74; TEMP 97.9; O2SAT 96
[2025-01-06 06:12] LABS: BASO # 0.1 10^3/uL (0.0-0.2); BASO % 0.2 % (0.0-1.0); EOS # 0.4 10^3/uL (0.0-0.5); EOS % 1.6 % (0.0-3.0); HEMOGLOBIN 8.4 g/dl (13.5-17.5); LYMPH # 1.8 10^3/uL (1.5-5.0); MEAN CORPUSCULAR HEMOGLOBIN 32.2 pg (27.0-33.0); MEAN CORPUSCULAR HGB CONC 31.1 g/dl (32.0-36.5); MEAN CORPUSCULAR VOLUME 103.4 fl (80.0-96.0); NEUTROPHILS # 10.9 10^3/uL (1.5-8.5); NEUTROPHILS % 43.1 % (36.0-66.0); RED BLOOD COUNT 2.61 10^6/uL (4.30-6.10); WHITE BLOOD COUNT 25.4 10^3/uL (4.0-10.0)
[2025-01-06 06:18] LABS: MONO # 8.4 10^3/uL (0.0-0.8); PLATELET COUNT, AUTOMATED 74 10^3/uL (150-450)
[2025-01-06 06:20] LABS: CALCIUM LEVEL 7.5 MG/DL (8.3-10.6); CREATININE FOR GFR 1.59 MG/DL (0.70-1.30); GLOMERULAR FILTRATION RATE 44.1 (>35); MAGNESIUM LEVEL 2.2 MG/DL (1.8-2.4)
[2025-01-06 08:00] VITALS: BP 131/70; TEMP 97.6; O2SAT 92
[2025-01-06] MEDS: ASPIRIN 81MG ENTERIC TABLET PO SCH (08:59)
[2025-01-06] MEDS: ceFAZolin SODIUM 2 GM in DEXTROSE 5% (D5W) ADV/MINI-BAG 50 ML IV SCH (08:59)
[2025-01-06] MEDS: PANTOPRAZOLE 40MG TAB (PROTONIX) PO SCH (09:00)
[2025-01-06 12:58] LABS: C REACTIVE PROTEIN QUANTITATIV 7.52 MG/DL (<1.0)
[2025-01-06 13:20] LABS: PROCALCITONIN 0.25 ng/ml
[2025-01-06] MEDS: LIDOCAINE 5% (LIDODERM) PATCH TD SCH (13:54)
[2025-01-06] MEDS: predniSONE 20 MG TAB PO SCH (20:09)
[2025-01-06] MEDS: MAGNESIUM OXIDE 400MG TAB (MAG-OX) PO SCH (20:09)
[2025-01-06 20:15] VITALS: BP 150/76; TEMP 97.9; O2SAT 96
[2025-01-06] MEDS: AMITRIPTYLINE 10MG TABLET PO SCH (22:00)
[2025-01-07] VITALS (8 sets, daily range): BP systolic 132–154; BP diastolic 78–89; TEMP 98.2–102.2; O2SAT 92–97
[2025-01-07] MEDS ORDERED: diphenhydrAMINE 50MG/ML VIAL IM ONE (01:55)
[2025-01-07] MEDS: ACETAMINOPHEN *IV* 1,000 MG in IV 1 EA IV ONE ×2 (02:11→09:45)
[2025-01-07] MEDS: MORPHINE 2 MG/ML 1ML VIAL IV ONE ×3 (04:54→16:52)
[2025-01-07 06:12] LABS: HEMATOCRIT 27.5 % (42.0-52.0); HEMOGLOBIN 8.9 g/dl (13.5-17.5); MEAN CORPUSCULAR HEMOGLOBIN 33.1 pg (27.0-33.0); MEAN CORPUSCULAR HGB CONC 32.4 g/dl (32.0-36.5); MEAN CORPUSCULAR VOLUME 102.2 fl (80.0-96.0); RED BLOOD COUNT 2.69 10^6/uL (4.30-6.10)
[2025-01-07 06:15] LABS: PLATELET COUNT, AUTOMATED 70 10^3/uL (150-450); WHITE BLOOD COUNT 30.5 10^3/uL (4.0-10.0)
[2025-01-07 06:17] LABS: CALCIUM LEVEL 7.6 MG/DL (8.3-10.6); CREATININE FOR GFR 1.41 MG/DL (0.70-1.30); GLOMERULAR FILTRATION RATE 50.6 (>35); POTASSIUM SERUM 3.9 MMOL/L (3.5-5.1)
[2025-01-07 07:48] LABS: BASOPHILS 1 % (0-1); LYMPHOCYTES 7 % (16-44); METAMYELOCYTES 3 % (0-0); MONOCYTES 21 % (0-5); MYELOCYTES 4 % (0-0); NEUTROPHILS 61 % (28-66)
[2025-01-07 07:49] LABS: PLATELET ESTIMATE DECREASED (NORMAL)
[2025-01-07 07:51] LABS: ANISOCYTOSIS 2+; MICROCYTOSIS 1+
[2025-01-07 10:07] LABS: HEMATOCRIT 27.4 % (42.0-52.0); HEMOGLOBIN 8.9 g/dl (13.5-17.5); MEAN CORPUSCULAR HEMOGLOBIN 32.7 pg (27.0-33.0); MEAN CORPUSCULAR HGB CONC 32.5 g/dl (32.0-36.5); MEAN CORPUSCULAR VOLUME 100.7 fl (80.0-96.0); RED BLOOD COUNT 2.72 10^6/uL (4.30-6.10)
[2025-01-07 10:18] LABS: ALBUMIN 2.3 G/DL (3.2-5.2); ALKALINE PHOSPHATASE 39 U/L (40-129); ALT/SGPT < 9 U/L (7.0-40); AST/SGOT 13 U/L (<34); BILIRUBIN,DIRECT 0.3 MG/DL (<0.4); BILIRUBIN,TOTAL 0.6 MG/DL (0.3-1.2); TOTAL PROTEIN 6.9 G/DL (5.7-8.2)
[2025-01-07 10:24] LABS: PLATELET COUNT, AUTOMATED 88 10^3/uL (150-450); WHITE BLOOD COUNT 33.6 10^3/uL (4.0-10.0)
[2025-01-07 12:31] LABS: KETONE, URINE AUTO RFX NEGATIVE (NEGATIVE); NITRITE, URINE AUTO RFX NEGATIVE (NEGATIVE); RBC, URINE AUTO RFX 10 /HPF (0-3); SQUAM EPITHELIAL CELL UR AURFX 0 /HPF (0-6); WBC, URINE AUTO RFX 7 /HPF (0-3)
[2025-01-07] MEDS: KETOROLAC 30 MG/ML 1ML VIAL IV ONE (12:58)
[2025-01-07 13:11] LABS: LEUKOCYTE ESTERASE UR AUTO RFX TRACE (NEGATIVE)
[2025-01-07] MEDS ORDERED: PROHANCE 279.3MG/ML 15ML VIAL As Ordered ONE (14:30)
[2025-01-07] MEDS ORDERED: VANCOMYCIN HCL 1,000 MG, VIAL MATE ADAPTER 1 EACH in NS 250 ML IV SCH (17:05)
[2025-01-07] MEDS: PIPERACILLIN/TAZOBACTAM SOD 3.375 GM in DEXTROSE 5% (D5W) ADV/MINI-BAG 50 ML IV SCH (18:17)
[2025-01-07] MEDS: NS (Normal Saline) 0.9% 1,000 ML IV SCH (18:34)
[2025-01-07] MEDS: VANCOMYCIN HCL 1,500 MG, VIAL MATE ADAPTER 1 EACH in NS 500 ML IV ONE (20:25)
[2025-01-08] VITALS (10 sets, daily range): BP systolic 129–157; BP diastolic 80–93; TEMP 97.5–100.3; O2SAT 87–95
[2025-01-08] MEDS: MORPHINE 2 MG/ML 1ML VIAL IV ONE (05:19)
[2025-01-08 06:01] LABS: BASO # 0.1 10^3/uL (0.0-0.2); BASO % 0.2 % (0.0-1.0); EOS # 0.1 10^3/uL (0.0-0.5); EOS % 0.3 % (0.0-3.0); HEMATOCRIT 25.7 % (42.0-52.0); HEMOGLOBIN 8.4 g/dl (13.5-17.5); LYMPH # 1.9 10^3/uL (1.5-5.0); LYMPH % 6.4 % (24.0-44.0); MEAN CORPUSCULAR HEMOGLOBIN 33.3 pg (27.0-33.0); MEAN CORPUSCULAR HGB CONC 32.7 g/dl (32.0-36.5); MONO % 27.8 % (2.0-8.0); NEUTROPHILS # 13.8 10^3/uL (1.5-8.5); NEUTROPHILS % 47.4 % (36.0-66.0); RED BLOOD COUNT 2.52 10^6/uL (4.30-6.10); WHITE BLOOD COUNT 29.2 10^3/uL (4.0-10.0)
[2025-01-08 06:02] LABS: MONO # 8.1 10^3/uL (0.0-0.8)
[2025-01-08 06:04] LABS: PLATELET COUNT, AUTOMATED 88 10^3/uL (150-450)
[2025-01-08 06:30] LABS: ALBUMIN 1.9 G/DL (3.2-5.2); ALKALINE PHOSPHATASE 36 U/L (40-129); ALT/SGPT < 9 U/L (7.0-40); AST/SGOT 14 U/L (<34); BILIRUBIN,TOTAL 0.4 MG/DL (0.3-1.2); BLOOD UREA NITROGEN 30 MG/DL (9-23); CALCIUM LEVEL 7.6 MG/DL (8.3-10.6); CARBON DIOXIDE LEVEL 24 MMOL/L (20-31); CHLORIDE LEVEL 110 MMOL/L (98-107); GLOMERULAR FILTRATION RATE 47.1 (>35); GLUCOSE, FASTING 89 MG/DL (74-106); MAGNESIUM LEVEL 2.3 MG/DL (1.8-2.4); POTASSIUM SERUM 4.4 MMOL/L (3.5-5.1); SODIUM LEVEL 142 MMOL/L (136-145); TOTAL PROTEIN 6.3 G/DL (5.7-8.2)
[2025-01-08 07:55] LABS: VANCOMYCIN RANDOM 15.8 UG/ML
[2025-01-08] MEDS ORDERED: VANCOMYCIN HCL 1,000 MG, VIAL MATE ADAPTER 1 EACH in NS 250 ML IV SCH (09:00)
[2025-01-08] MEDS ORDERED: VANCOMYCIN HCL 1,250 MG, VIAL MATE ADAPTER 1 EACH in NS 250 ML IV SCH (09:00)
[2025-01-08] MEDS: VANCOMYCIN HCL 1,000 MG, VIAL MATE ADAPTER 1 EACH in NS 250 ML IV SCH (09:51)
[2025-01-08] MEDS: ROPIvacaine 0.5% 30ML VIAL PN ONE (12:55)
[2025-01-08] MEDS: dexAMETHasone 10MG/1ML VIAL PRES.FREE PN ONE (12:55)
[2025-01-08] MEDS: LIDOCAINE 1% SDV 5ML VIAL PN ONE (12:55)
[2025-01-08] MEDS: fentaNYL 100 MCG/2 ML INJECTION IV PRN (12:55)
[2025-01-08] MEDS: LR 1,000 ML IV SCH (12:55)
[2025-01-08] MEDS: ZOSYN 3.375GM VIAL As Ordered ONE (14:10)
[2025-01-08] MEDS: LIDOCAINE 1% SDV 30ML VIAL As Ordered ONE (14:38)
[2025-01-08] MEDS ORDERED: propofoL 200 MG/20 ML VIAL As Ordered ONE (14:39)
[2025-01-08] MEDS: traMADol 50 MG TAB PO PRN (16:20)
[2025-01-08] MEDS: predniSONE 20 MG TAB PO ONE (17:48)
[2025-01-08] MEDS: PERCOCET 5MG/325MG TAB PO PRN (17:49)
[2025-01-09 05:11] VITALS: BP 162/84; TEMP 97.7; O2SAT 92
[2025-01-09 08:00] VITALS: BP 144/84; TEMP 98.2; O2SAT 97
[2025-01-09 08:31] LABS: HEMATOCRIT 24.7 % (42.0-52.0); HEMOGLOBIN 7.9 g/dl (13.5-17.5); MEAN CORPUSCULAR HEMOGLOBIN 32.5 pg (27.0-33.0); MEAN CORPUSCULAR VOLUME 101.6 fl (80.0-96.0); PLATELET COUNT, AUTOMATED 114 10^3/uL (150-450); RED BLOOD COUNT 2.43 10^6/uL (4.30-6.10); WHITE BLOOD COUNT 29.7 10^3/uL (4.0-10.0)
[2025-01-09 08:40] LABS: ALBUMIN 1.8 G/DL (3.2-5.2); ALKALINE PHOSPHATASE 38 U/L (40-129); ALT/SGPT < 9 U/L (7.0-40); AST/SGOT 14 U/L (<34); BILIRUBIN,TOTAL 0.3 MG/DL (0.3-1.2); BLOOD UREA NITROGEN 39 MG/DL (9-23); CALCIUM LEVEL 7.6 MG/DL (8.3-10.6); CARBON DIOXIDE LEVEL 23 MMOL/L (20-31); CHLORIDE LEVEL 113 MMOL/L (98-107); CREATININE FOR GFR 1.55 MG/DL (0.70-1.30); GLOMERULAR FILTRATION RATE 43.1 (>35); GLUCOSE, FASTING 137 MG/DL (74-106); MAGNESIUM LEVEL 2.4 MG/DL (1.8-2.4); POTASSIUM SERUM 4.7 MMOL/L (3.5-5.1); SODIUM LEVEL 144 MMOL/L (136-145); TOTAL PROTEIN 6.4 G/DL (5.7-8.2)
[2025-01-09 09:07] LABS: LYMPHOCYTES 6 % (16-44); METAMYELOCYTES 3 % (0-0); MONOCYTES 25 % (0-5); MYELOCYTES 5 % (0-0); NEUTROPHILS 58 % (28-66)
[2025-01-09 09:08] LABS: ANISOCYTOSIS 1+
[2025-01-09 09:09] LABS: PLATELET ESTIMATE DECREASED (NORMAL)
[2025-01-09] MEDS: predniSONE 20 MG TAB PO SCH (09:52)
[2025-01-09] MEDS: PERCOCET 5MG/325MG TAB PO PRN (11:07)
[2025-01-09 14:00] VITALS: BP 145/89; TEMP 97.7; O2SAT 94
[2025-01-09 16:00] VITALS: BP 153/79; TEMP 97.7; O2SAT 95
[2025-01-09 16:42] LABS: C REACTIVE PROTEIN QUANTITATIV 12.28 MG/DL (<1.0)
[2025-01-09 20:00] VITALS: BP 155/98; TEMP 97.7; O2SAT 95
[2025-01-10] VITALS (12 sets, daily range): BP systolic 132–164; BP diastolic 72–97; TEMP 97.3–103.6; O2SAT 85–99
[2025-01-10 06:33] LABS: BASO # 0.1 10^3/uL (0.0-0.2); BASO % 0.2 % (0.0-1.0); EOS # 0.1 10^3/uL (0.0-0.5); EOS % 0.5 % (0.0-3.0); HEMATOCRIT 24.6 % (42.0-52.0); LYMPH # 2.8 10^3/uL (1.5-5.0); LYMPH % 10.1 % (24.0-44.0); MEAN CORPUSCULAR HEMOGLOBIN 33.2 pg (27.0-33.0); MEAN CORPUSCULAR HGB CONC 32.5 g/dl (32.0-36.5); MEAN CORPUSCULAR VOLUME 102.1 fl (80.0-96.0); MONO % 26.4 % (2.0-8.0); NEUTROPHILS # 11.2 10^3/uL (1.5-8.5); NEUTROPHILS % 40.9 % (36.0-66.0); RED BLOOD COUNT 2.41 10^6/uL (4.30-6.10); WHITE BLOOD COUNT 27.3 10^3/uL (4.0-10.0)
[2025-01-10 06:59] LABS: ALKALINE PHOSPHATASE 36 U/L (40-129); ALT/SGPT < 9 U/L (7.0-40); AST/SGOT 17 U/L (<34); BILIRUBIN,TOTAL 0.5 MG/DL (0.3-1.2); BLOOD UREA NITROGEN 39 MG/DL (9-23); CALCIUM LEVEL 7.4 MG/DL (8.3-10.6); CARBON DIOXIDE LEVEL 24 MMOL/L (20-31); CHLORIDE LEVEL 110 MMOL/L (98-107); CREATININE FOR GFR 1.55 MG/DL (0.70-1.30); GLOMERULAR FILTRATION RATE 43.1 (>35); GLUCOSE, FASTING 73 MG/DL (74-106); MAGNESIUM LEVEL 2.3 MG/DL (1.8-2.4); POTASSIUM SERUM 4.3 MMOL/L (3.5-5.1); SODIUM LEVEL 143 MMOL/L (136-145); TOTAL PROTEIN 6.3 G/DL (5.7-8.2)
[2025-01-10 07:22] LABS: MONO # 7.2 10^3/uL (0.0-0.8)
[2025-01-10] MEDS ORDERED: predniSONE 5 MG TAB PO SCH (09:00)
[2025-01-10 16:15] LABS: PLATELET COUNT, AUTOMATED 119 10^3/uL (150-450)
[2025-01-10] MEDS: MOM 30ML SUSPENSION UDC PO ONE (16:57)
[2025-01-10] MEDS: PIPERACILLIN/TAZOBACTAM SOD 2.25 GM in DEXTROSE 5% (D5W) ADV/MINI-BAG 50 ML IV SCH (17:56)
[2025-01-10] MEDS: HEPARIN SOD (PORCINE) 5000UNITS/ML 1ML VIAL/SYRINGE SQ SCH (20:26)
[2025-01-10] MEDS: RAMELTEON 8 MG TAB (ROZEREM) PO PRN (20:28)
[2025-01-10] MEDS: FUROSEMIDE 20 MG TAB PO SCH (20:28)
[2025-01-10] MEDS: SENNA 8.6 MG TAB (SENOKOT) PO SCH (20:28)
[2025-01-10 21:49] LABS: VENOUS BASE EXCESS -0.2 (-2.0-2.0); VENOUS HCO3 23.8 MMOL/L (23.0-27.0); VENOUS PARTIAL PRESSURE O2 191.9 mmHg (30.0-50.0); VENOUS PH 7.438 UNITS (7.330-7.430); VENOUS STANDARD HCO3 24.3 MMOL/L; VENOUS TOTAL CO2 24.9 MMOL/L (24.0-28.0)
[2025-01-10 21:55] LABS: BASO % 0.1 % (0.0-1.0); EOS # 0.1 10^3/uL (0.0-0.5); EOS % 0.3 % (0.0-3.0); HEMATOCRIT 23.2 % (42.0-52.0); HEMOGLOBIN 7.3 g/dl (13.5-17.5); LYMPH # 2.6 10^3/uL (1.5-5.0); MEAN CORPUSCULAR HEMOGLOBIN 31.9 pg (27.0-33.0); MEAN CORPUSCULAR HGB CONC 31.5 g/dl (32.0-36.5); MEAN CORPUSCULAR VOLUME 101.3 fl (80.0-96.0); MONO % 30.8 % (2.0-8.0); NEUTROPHILS # 9.3 10^3/uL (1.5-8.5); NEUTROPHILS % 35.7 % (36.0-66.0); PLATELET COUNT, AUTOMATED 126 10^3/uL (150-450); RED BLOOD COUNT 2.29 10^6/uL (4.30-6.10); WHITE BLOOD COUNT 26.1 10^3/uL (4.0-10.0)
[2025-01-10 22:02] LABS: ERYTHROCYTE SEDIMENTATION RATE 78 mm/hr (0-20)
[2025-01-10 22:27] LABS: ALBUMIN 1.8 G/DL (3.2-5.2); ALKALINE PHOSPHATASE 42 U/L (40-129); ALT/SGPT < 9 U/L (7.0-40); AST/SGOT 17 U/L (<34); BILIRUBIN,TOTAL 0.5 MG/DL (0.3-1.2); BLOOD UREA NITROGEN 38 MG/DL (9-23); C REACTIVE PROTEIN QUANTITATIV 5.62 MG/DL (<1.0); CALCIUM LEVEL 7.4 MG/DL (8.3-10.6); CARBON DIOXIDE LEVEL 26 MMOL/L (20-31); CHLORIDE LEVEL 109 MMOL/L (98-107); CREATININE FOR GFR 1.67 MG/DL (0.70-1.30); GLOMERULAR FILTRATION RATE 39.4 (>35); GLUCOSE, FASTING 98 MG/DL (74-106); MAGNESIUM LEVEL 2.4 MG/DL (1.8-2.4); POTASSIUM SERUM 4.7 MMOL/L (3.5-5.1); SODIUM LEVEL 140 MMOL/L (136-145)
[2025-01-10 22:34] LABS: PROCALCITONIN 0.33 ng/ml
[2025-01-11] VITALS (11 sets, daily range): BP systolic 129–172; BP diastolic 33–104; TEMP 97.5–100.2; O2SAT 93–98
[2025-01-11 06:11] LABS: HEMATOCRIT 25.1 % (42.0-52.0); HEMOGLOBIN 7.9 g/dl (13.5-17.5); MEAN CORPUSCULAR HEMOGLOBIN 32.1 pg (27.0-33.0); MEAN CORPUSCULAR HGB CONC 31.5 g/dl (32.0-36.5); PLATELET COUNT, AUTOMATED 126 10^3/uL (150-450); RED BLOOD COUNT 2.46 10^6/uL (4.30-6.10); WHITE BLOOD COUNT 27.7 10^3/uL (4.0-10.0)
[2025-01-11 06:38] LABS: ALBUMIN 1.9 G/DL (3.2-5.2); ALKALINE PHOSPHATASE 41 U/L (40-129); ALT/SGPT < 9 U/L (7.0-40); AST/SGOT 17 U/L (<34); BILIRUBIN,TOTAL 0.5 MG/DL (0.3-1.2); BLOOD UREA NITROGEN 37 MG/DL (9-23); CALCIUM LEVEL 7.4 MG/DL (8.3-10.6); CARBON DIOXIDE LEVEL 27 MMOL/L (20-31); CHLORIDE LEVEL 108 MMOL/L (98-107); CREATININE FOR GFR 1.72 MG/DL (0.70-1.30); GLUCOSE, FASTING 75 MG/DL (74-106); POTASSIUM SERUM 4.4 MMOL/L (3.5-5.1); SODIUM LEVEL 142 MMOL/L (136-145); TOTAL PROTEIN 6.2 G/DL (5.7-8.2)
[2025-01-11 08:31] LABS: HEMATOCRIT 24.5 % (42.0-52.0); HEMOGLOBIN 7.8 g/dl (13.5-17.5)
[2025-01-11 09:06] LABS: KETONE, URINE AUTO RFX NEGATIVE (NEGATIVE); MUCUS, URINE RFX SMALL (NEGATIVE); NITRITE, URINE AUTO RFX NEGATIVE (NEGATIVE); RBC, URINE AUTO RFX 16 /HPF (0-3); SQUAM EPITHELIAL CELL UR AURFX 0 /HPF (0-6); WBC, URINE AUTO RFX 7 /HPF (0-3)
[2025-01-11 09:07] LABS: LEUKOCYTE ESTERASE UR AUTO RFX 1+ (NEGATIVE)
[2025-01-11 14:33] LABS: HEMATOCRIT 24.3 % (42.0-52.0); HEMOGLOBIN 7.8 g/dl (13.5-17.5)
[2025-01-12 00:15] VITALS: BP 186/85; TEMP 97.5
[2025-01-12 00:45] VITALS: BP 177/94; TEMP 97.8; O2SAT 95
[2025-01-12 03:36] VITALS: BP 136/85; TEMP 98.5; O2SAT 93
[2025-01-12] MEDS: MOM 30ML SUSPENSION UDC PO PRN (06:05)
[2025-01-12 06:36] LABS: ALBUMIN 1.9 G/DL (3.2-5.2); ALKALINE PHOSPHATASE 39 U/L (40-129); ALT/SGPT < 9 U/L (7.0-40); AST/SGOT 15 U/L (<34); BILIRUBIN,TOTAL 0.7 MG/DL (0.3-1.2); BLOOD UREA NITROGEN 33 MG/DL (9-23); CALCIUM LEVEL 7.4 MG/DL (8.3-10.6); CARBON DIOXIDE LEVEL 28 MMOL/L (20-31); CHLORIDE LEVEL 102 MMOL/L (98-107); CREATININE FOR GFR 1.63 MG/DL (0.70-1.30); GLOMERULAR FILTRATION RATE 40.5 (>35); GLUCOSE, FASTING 82 MG/DL (74-106); POTASSIUM SERUM 3.9 MMOL/L (3.5-5.1); SODIUM LEVEL 140 MMOL/L (136-145); TOTAL PROTEIN 6.3 G/DL (5.7-8.2)
[2025-01-12 06:48] LABS: HEMATOCRIT 27.1 % (42.0-52.0); MEAN CORPUSCULAR HEMOGLOBIN 32.7 pg (27.0-33.0); MEAN CORPUSCULAR HGB CONC 33.2 g/dl (32.0-36.5); MEAN CORPUSCULAR VOLUME 98.5 fl (80.0-96.0); RED BLOOD COUNT 2.75 10^6/uL (4.30-6.10)
[2025-01-12 06:51] LABS: WHITE BLOOD COUNT 30.1 10^3/uL (4.0-10.0)
[2025-01-12 12:40] VITALS: BP 123/69; TEMP 102.2; O2SAT 93
[2025-01-12 14:27] VITALS: TEMP 100.6
[2025-01-12 20:43] VITALS: BP 129/86; TEMP 100.7; O2SAT 95
[2025-01-12] MEDS: BISACODYL 10MG SUPP PR SCH (20:58)
[2025-01-13 00:24] VITALS: BP 133/86; TEMP 97.7; O2SAT 92
[2025-01-13 00:50] VITALS: BP 133/86
[2025-01-13] MEDS: METOPROLOL TART 25 MG TABLET PO STA (00:50)
[2025-01-13] MEDS: NS 500 ML IV ONE (01:18)
[2025-01-13] MEDS: DAPTOmycin 500 MG in NS 50 ML IV SCH (01:51)
[2025-01-13] MEDS: NS (Normal Saline) 0.9% 1,000 ML IV SCH (01:54)
[2025-01-13 02:41] LABS: HEMATOCRIT 24.8 % (42.0-52.0); HEMOGLOBIN 8.1 g/dl (13.5-17.5); MEAN CORPUSCULAR HEMOGLOBIN 32.3 pg (27.0-33.0); MEAN CORPUSCULAR HGB CONC 32.7 g/dl (32.0-36.5); MEAN CORPUSCULAR VOLUME 98.8 fl (80.0-96.0); PLATELET COUNT, AUTOMATED 120 10^3/uL (150-450); RED BLOOD COUNT 2.51 10^6/uL (4.30-6.10)
[2025-01-13 02:46] LABS: WHITE BLOOD COUNT 34.2 10^3/uL (4.0-10.0)
[2025-01-13 03:09] LABS: ATYPICAL LYMPH 1 % (0-5); EOSINOPHILS 1 % (0-3); LYMPHOCYTES 12 % (16-44); METAMYELOCYTES 5 % (0-0); MONOCYTES 28 % (0-5); MYELOCYTES 6 % (0-0); NEUTROPHILS 46 % (28-66)
[2025-01-13 03:10] LABS: ANISOCYTOSIS 4+; PLATELET ESTIMATE DECREASED (NORMAL)
[2025-01-13 03:11] LABS: ALKALINE PHOSPHATASE 45 U/L (40-129); ALT/SGPT < 9 U/L (7.0-40); AST/SGOT 12 U/L (<34); BILIRUBIN,TOTAL 0.6 MG/DL (0.3-1.2); BLOOD UREA NITROGEN 29 MG/DL (9-23); CALCIUM LEVEL 7.2 MG/DL (8.3-10.6); CARBON DIOXIDE LEVEL 26 MMOL/L (20-31); CHLORIDE LEVEL 102 MMOL/L (98-107); CREATININE FOR GFR 1.48 MG/DL (0.70-1.30); GLOMERULAR FILTRATION RATE 45.5 (>35); GLUCOSE, FASTING 97 MG/DL (74-106); POTASSIUM SERUM 3.9 MMOL/L (3.5-5.1); SODIUM LEVEL 137 MMOL/L (136-145); TOTAL PROTEIN 6.4 G/DL (5.7-8.2)
[2025-01-13 03:12] LABS: TARGET CELLS 1+
[2025-01-13 03:53] VITALS: BP 136/75; TEMP 98.2; O2SAT 96
[2025-01-13 06:02] LABS: HEMATOCRIT 25.5 % (42.0-52.0); HEMOGLOBIN 8.3 g/dl (13.5-17.5); MEAN CORPUSCULAR HEMOGLOBIN 32.4 pg (27.0-33.0); MEAN CORPUSCULAR HGB CONC 32.5 g/dl (32.0-36.5); MEAN CORPUSCULAR VOLUME 99.6 fl (80.0-96.0); PLATELET COUNT, AUTOMATED 119 10^3/uL (150-450); RED BLOOD COUNT 2.56 10^6/uL (4.30-6.10)
[2025-01-13 06:03] LABS: WHITE BLOOD COUNT 36.3 10^3/uL (4.0-10.0)
[2025-01-13 06:30] LABS: ALBUMIN 1.7 G/DL (3.2-5.2); ALKALINE PHOSPHATASE 45 U/L (40-129); ALT/SGPT < 9 U/L (7.0-40); AST/SGOT 10 U/L (<34); BILIRUBIN,TOTAL 0.5 MG/DL (0.3-1.2); BLOOD UREA NITROGEN 29 MG/DL (9-23); CALCIUM LEVEL 7.4 MG/DL (8.3-10.6); CARBON DIOXIDE LEVEL 27 MMOL/L (20-31); CHLORIDE LEVEL 105 MMOL/L (98-107); CREATININE FOR GFR 1.46 MG/DL (0.70-1.30); GLOMERULAR FILTRATION RATE 46.3 (>35); GLUCOSE, FASTING 90 MG/DL (74-106); POTASSIUM SERUM 3.8 MMOL/L (3.5-5.1); SODIUM LEVEL 139 MMOL/L (136-145); TOTAL PROTEIN 6.2 G/DL (5.7-8.2)
[2025-01-13] MEDS: MOM 30ML SUSPENSION UDC PO SCH (09:55)
[2025-01-13] MEDS ORDERED: E-Z-PAQUE 96% w/w SUSP 176GM BTL As Ordered ONE (11:10)
[2025-01-13] MEDS ORDERED: VARIBAR PUDDING 40% w/v 230ML TUBE As Ordered ONE (11:10)
[2025-01-13] MEDS ORDERED: VARIBAR NECTAR 40% w/v 240ML SUSP BTL As Ordered ONE (11:10)
[2025-01-13] MEDS ORDERED: BARIUM SULFATE 700 MG TABLET (E-Z-DISK) As Ordered ONE (11:11)
[2025-01-13 12:06] VITALS: BP 136/87; TEMP 97.9; O2SAT 97
[2025-01-13] MEDS ORDERED: [UNRECOGNIZED DRUG - CODE] SC (13:12)
[2025-01-13 20:10] VITALS: BP 138/87; TEMP 97.5; O2SAT 95
[2025-01-14 04:49] VITALS: BP 144/88; TEMP 99; O2SAT 96
[2025-01-14 07:42] LABS: BASO # 0.2 10^3/uL (0.0-0.2); BASO % 0.5 % (0.0-1.0); EOS # 0.1 10^3/uL (0.0-0.5); EOS % 0.4 % (0.0-3.0); HEMATOCRIT 24.3 % (42.0-52.0); HEMOGLOBIN 7.6 g/dl (13.5-17.5); LYMPH # 2.8 10^3/uL (1.5-5.0); LYMPH % 8.2 % (24.0-44.0); MEAN CORPUSCULAR HEMOGLOBIN 31.4 pg (27.0-33.0); MEAN CORPUSCULAR HGB CONC 31.3 g/dl (32.0-36.5); MEAN CORPUSCULAR VOLUME 100.4 fl (80.0-96.0); MONO % 33.2 % (2.0-8.0); NEUTROPHILS # 11.3 10^3/uL (1.5-8.5); NEUTROPHILS % 33.3 % (36.0-66.0); PLATELET COUNT, AUTOMATED 127 10^3/uL (150-450); RED BLOOD COUNT 2.42 10^6/uL (4.30-6.10)
[2025-01-14 07:44] LABS: MONO # 11.3 10^3/uL (0.0-0.8)
[2025-01-14 08:02] LABS: CALCIUM LEVEL 7.1 MG/DL (8.3-10.6); CREATININE FOR GFR 1.48 MG/DL (0.70-1.30); GLOMERULAR FILTRATION RATE 45.5 (>35); POTASSIUM SERUM 3.8 MMOL/L (3.5-5.1)
[2025-01-14] MEDS ORDERED: BISACODYL 10MG SUPP PR PRN (11:30)
[2025-01-14] MEDS ORDERED: HYOSCYAMINE SULFATE 0.125 MG SUBL TABLET PO PRN (11:35)
[2025-01-14] MEDS ORDERED: ONDANSETRON 4MG ORAL DISINTEGRATING TAB PO PRN (11:35)
[2025-01-14] MEDS: MORPHINE 10MG/0.5ML ORAL CONCENTRATE SOLUTION U/D SL SCH (13:42)
[2025-01-14] MEDS: PIPERACILLIN/TAZOBACTAM SOD 2.25 GM in DEXTROSE 5% (D5W) ADV/MINI-BAG 50 ML IV SCH (17:55)
[2025-01-14] MEDS: SENNA 8.6 MG TAB (SENOKOT) PO SCH (21:00)
[2025-01-15] MEDS ORDERED: PERMETHRIN 5% CREAM 60 GM TOP SCH
[2025-01-15] MEDS: LEVOTHYROXINE 50MCG TABLET (0.05MG) PO SCH (09:00)
[2025-01-15] MEDS: PERMETHRIN 5% CREAM 60 GM TOP ONE (21:00)
[2025-01-16] MEDS ORDERED: PERMETHRIN 5% CREAM 60 GM TOP SCH
[2025-01-16] MEDS: [UNRECOGNIZED DRUG - REMARK] XX SCH (09:00)
[2025-01-16] MEDS ORDERED: [UNRECOGNIZED DRUG - REMARK] XX SCH (09:00)
[2025-01-16] MEDS: MORPHINE 10MG/0.5ML ORAL CONCENTRATE SOLUTION U/D SL SCH (12:37)
[2025-01-16] MEDS: MORPHINE 10MG/0.5ML ORAL CONCENTRATE SOLUTION U/D SL PRN (16:16)
[2025-01-17] MEDS: ATROPINE SULFATE 1% OPHTH SOLN 2ML BTL SL PRN (05:28)
[2025-01-17] MEDS: LORazepam 1 MG TAB PO PRN (06:55)
[2025-01-17] MEDS: MORPHINE 10MG/0.5ML ORAL CONCENTRATE SOLUTION U/D SL SCH (14:46)
== END 2025-01-17 16:16 | disposition expired | DRG 853 ==
LOC: M ED 19:54 → M ED INP 01-03 01:27 → M PCU 01-03 16:06 → M MSPAV 01-06 18:44
PROVIDERS: ADMIT Family Medicine; ATTEND Internal Medicine Nephrology
PROC: 0JBR0ZZ Excision of Left Foot Subcutaneous Tissue and Fascia, Open Approach (ICD-10-PCS; principal; 2025-01-07)
PROC: 0HDGXZZ Extraction of Left Hand Skin, External Approach (ICD-10-PCS; 2025-01-08)
PROC: 30233N1 Transfusion of Nonautologous Red Blood Cells into Peripheral Vein, Percutaneous Approach (ICD-10-PCS; 2025-01-11)
DX: A41.9 Sepsis, unspecified organism (principal); G92.8 Other toxic encephalopathy; E43 Unspecified severe protein-calorie malnutrition; L89.624 Pressure ulcer of left heel, stage 4; N17.9 Acute kidney failure, unspecified; I13.0 Hypertensive heart and chronic kidney disease with heart failure and stage 1 through stage 4 chronic kidney disease, or unspecified chronic kidney disease; N39.0 Urinary tract infection, site not specified; C93.10 Chronic myelomonocytic leukemia not having achieved remission; I50.32 Chronic diastolic (congestive) heart failure; L02.512 Cutaneous abscess of left hand; E87.20 Acidosis, unspecified; D50.9 Iron deficiency anemia, unspecified; E03.9 Hypothyroidism, unspecified; N18.32 Chronic kidney disease, stage 3b; Z66 Do not resuscitate; Z51.5 Encounter for palliative care; I48.0 Paroxysmal atrial fibrillation; E87.6 Hypokalemia; B95.61 Methicillin susceptible Staphylococcus aureus infection as the cause of diseases classified elsewhere; K21.9 Gastro-esophageal reflux disease without esophagitis; R13.10 Dysphagia, unspecified; M35.3 Polymyalgia rheumatica; M65.932 Unspecified synovitis and tenosynovitis, left forearm; D63.8 Anemia in other chronic diseases classified elsewhere; M48.02 Spinal stenosis, cervical region; M60.832 Other myositis, left forearm; G60.0 Hereditary motor and sensory neuropathy; R65.20 Severe sepsis without septic shock; M21.371 Foot drop, right foot; N40.1 Benign prostatic hyperplasia with lower urinary tract symptoms; D69.6 Thrombocytopenia, unspecified; R33.8 Other retention of urine; M71.072 Abscess of bursa, left ankle and foot; R09.02 Hypoxemia; D47.2 Monoclonal gammopathy; M50.30 Other cervical disc degeneration, unspecified cervical region; K59.09 Other constipation; M79.89 Other specified soft tissue disorders; Z90.49 Acquired absence of other specified parts of digestive tract; Z98.41 Cataract extraction status, right eye; Z98.42 Cataract extraction status, left eye; G47.33 Obstructive sleep apnea (adult) (pediatric); Z79.82 Long term (current) use of aspirin; Z79.890 Hormone replacement therapy; Z79.52 Long term (current) use of systemic steroids; Z79.899 Other long term (current) drug therapy; Z88.8 Allergy status to other drugs, medicaments and biological substances